=== PATIENT | female | born 1950 | race Caucasian/White ===

== ENCOUNTER → 2016-12-12 | Outpatient (CLI) | payer MEDICARE, OTHER ==
[~2016-12-12] MED LIST: DENOSUMAB 60 MG/ML 1 ML SYRINGE SQ ONE
[2016-12-12 13:12] VITALS: BP 138/65; PULSE 81; RESP 16; TEMP 97.9
== END ==
LOC: PROCWHC3 12:28
PROVIDERS: ATTEND Family Medicine
DX: M81.0 Age-related osteoporosis without current pathological fracture (principal)
CPT/HCPCS: 96372; J0897

== ENCOUNTER → 2017-02-23 | Outpatient (CLI) | payer MEDICARE, OTHER ==
--- NOTE | 2017-02-23 11:16 | US ---
EXAMINATION TYPE: US abdomen complete DATE OF EXAM: 02/23/2017 COMPARISON: NONE CLINICAL HISTORY: R10.9 Unspecified Abdominal Pain. EXAM MEASUREMENTS: Liver Length: 14.1 cm Gallbladder Wall: Surgically absent cm CBD: 0.7 cm Spleen: 9.4 cm Right Kidney: 10.5 x 3.4 x 4.1 cm Left Kidney: 9.8 x 3.4 x 4.3 cm Pancreas: Tail obscured by overlying bowel gas Liver: left lobe partially obscured by overlying bowel gas, otherwise wnl Gallbladder: Surgically absent Evidence for sonographic Mercado's sign: No CBD: wnl Spleen: wnl Right Kidney: No hydronephrosis or masses seen Left Kidney: No hydronephrosis or masses seen Upper IVC: wnl Abd Aorta: bifurcation obscured by bowel gas otherwise wnl Limited views of the pancreas are unremarkable. The liver is normal in size without biliary dilatation. There is been a previous cholecystectomy. The distal common hepatic duct measures 7 mm. The spleen is normal in size. Both kidneys are unremarkable. Visualized portions of aorta and IVC are normal. IMPRESSION: STATUS POST CHOLECYSTECTOMY.
== END | disposition home or self-care (01) ==
LOC: RADUSWWP 09:38
PROVIDERS: ATTEND Family Medicine
DX: R10.9 Unspecified abdominal pain (principal); Z90.49 Acquired absence of other specified parts of digestive tract
CPT/HCPCS: 76700

== ENCOUNTER → 2017-03-17 | Outpatient (CLI) | payer MEDICARE, OTHER ==
--- NOTE | 2017-03-17 23:11 | MR ---
EXAMINATION TYPE: MR thoracic spine wo con DATE OF EXAM: 03/17/2017 COMPARISON: NONE HISTORY: Pain in Thoracic Spine Standard multiplanar, multisequence MRI departmental protocol Multiplanar, multisequence images of the thoracic spine were acquired. FINDINGS: The thoracic vertebra have normal alignment. There is no compression fracture. Thoracic spi nal cord has fairly normal signal pattern. There is no evidence of edema or mass. There is no thoraci c spinal stenosis. There is mild anterior spurring of the endplates in the mid and lower thoracic spi ne. There is no paraspinal mass. Posterior elements appear intact. I see no focal bone destruction. IMPRESSION: Mild spondylotic changes in the mid and lower thoracic spine. No fracture. No thoracic disc herniatio n. Mild anterior spurring.
== END | disposition home or self-care (01) ==
LOC: RADMRIMAIN 15:02
PROVIDERS: ATTEND Family Medicine
DX: M47.814 Spondylosis without myelopathy or radiculopathy, thoracic region (principal)
CPT/HCPCS: 36415; 72146; 82565; 84520

== ENCOUNTER 2017-10-22 14:01 | Observation (INO) | payer MEDICARE, OTHER ==
--- NOTE | 2017-10-22 14:20 | ED ---
General Adult HPI - General Stated complaint: CHEST PAIN Time Seen by Provider: 10/22/17 14:03 Source: patient, EMS, RN notes reviewed - History of Present Illness Initial comments: 67-year-old female presents for evaluation of chest pain. Patient was at her the primary care's office earlier today, chief complaint was chest pain, she was sent to the ER for evaluation. Patient developed chest pain yesterday evening while at rest. She had some associated right arm pain and numbness, this resolved and progressed to left arm and shoulder pain. She denies any vomiting or diaphoresis. Pain was substernal, described as pressure. She has no known history of coronary artery disease. She is a nonsmoker, nondiabetic. No history of hypertension. Patient took aspirin prior to arrival, she was given sublingual nitroglycerin by EMS, at the time my evaluation she has 1 out of 10 chest pressure. No symptoms in her arms at the time of my evaluation. - Related Data Home Medications Medication Instructions Recorded Confirmed Aspirin [Children's Aspirin] 81 mg PO DAILY 10/22/17 10/22/17 Calcium Carbonate [Calcium] 1,200 mg PO DAILY 10/22/17 10/22/17 Denosumab [Prolia] 60 mg SQ Q180D 10/22/17 10/22/17 Ferrous Sulfate [Feosol] 325 mg PO DAILY 10/22/17 10/22/17 Wiley Lock B.lactis 1 cap PO DAILY 10/22/17 10/22/17 [Probiotic] Levothyroxine Sodium 100 mcg PO DAILY 10/22/17 10/22/17 Lidocaine [Lidoderm 5% Patch] 1 patch TRANSDERM DAILY 10/22/17 10/22/17 Loratadine [Claritin] 10 mg PO DAILY 10/22/17 10/22/17 Naproxen 500 mg PO BID 10/22/17 10/22/17 Nortriptyline [Pamelor] 20 mg PO HS 10/22/17 10/22/17 Omeprazole 40 mg PO DAILY 10/22/17 10/22/17 Ranitidine HCl 150 mg PO BID 10/22/17 10/22/17 Rizatriptan Benzoate [Rizatriptan] 10 mg PO DAILY PRN 10/22/17 10/22/17 Triamterene-Hctz 37.5-25Mg 1 cap PO DAILY 10/22/17 10/22/17 [Dyazide 37.5-25 Capsule] Vitamin B Complex 1 cap PO DAILY 10/22/17 10/22/17 Allergies Allergy/AdvReac Type Severity Reaction Status Date / Time cefaclor [From Ceclor] Allergy Rash/Hives Verified 10/22/17 14:22 clarithromycin [From Biaxin] AdvReac Nausea Verified 10/22/17 14:22 hydromorphone [From Dilaudid] AdvReac Hallucinati Verified 10/22/17 14:22 ons ofloxacin [From Floxin] AdvReac Nausea Verified 10/22/17 14:22 Review of Systems ROS Statement: Those systems with pertinent positive or pertinent negative responses have been documented in the HPI. ROS Other: All systems not noted in ROS Statement are negative. Past Medical History Smoking Status: Never smoker General Exam General appearance: alert, in no apparent distress Head exam: Present: atraumatic, normocephalic Eye exam: Present: normal appearance, PERRL ENT exam: Present: normal exam Neck exam: Present: normal inspection. Absent: tenderness, meningismus Respiratory exam: Present: normal lung sounds bilaterally. Absent: respiratory distress, wheezes Cardiovascular Exam: Present: regular rate, normal rhythm GI/Abdominal exam: Present: soft. Absent: distended, tenderness Extremities exam: Present: normal inspection. Absent: pedal edema Neurological exam: Present: alert, oriented X3, CN II-XII intact Psychiatric exam: Present: normal affect, normal mood Skin exam: Present: warm, dry, intact. Absent: cyanosis, diaphoretic, erythema Course Vital Signs 10/22/17 10/22/17 14:15 15:15 Temperature 98.5 F Pulse Rate 71 69 Respiratory 15 16 Rate Blood Pressure 172/82 177/84 O2 Sat by Pulse 98 98 Oximetry EKG Findings - EKG Comments: EKG Findings:: EKG shows normal sinus rhythm, ventricular rate 79, UT interval 176 QRS duration 78, QTC 435, no ST segment elevation, no T-wave abnormality Medical Decision Making - Medical Decision Making 67-year-old female presenting with chief complaint of chest pain. Pain resolved initial evaluation. Patient does have typical features. No known history of CAD. EKG is nonischemic. Chest x-ray negative for acute intrathoracic process. Laboratory studies including CBC, CMP and troponin are unremarkable. Patient will be placed on heparin, admitted for cardiology consult and serial cardiac enzymes. - Lab Data Result diagrams: 10/22/17 14:30 10/22/17 14:30 Lab Results 10/22/17 10/22/17 10/22/17 Range/Units 14:30 14:30 14:30 WBC 4.8 (3.8-10.6) k/uL RBC 4.06 (3.80-5.40) m/uL Hgb 12.2 (11.4-16.0) gm/dL Hct 37.9 (34.0-46.0) % MCV 93.5 (80.0-100.0) fL MCH 30.1 (25.0-35.0) pg MCHC 32.2 (31.0-37.0) g/dL RDW 13.1 (11.5-15.5) % Plt Count 272 (150-450) k/uL Neutrophils % 52 % Lymphocytes % 34 % Monocytes % 8 % Eosinophils % 4 % Basophils % 1 % Neutrophils # 2.5 (1.3-7.7) k/uL Lymphocytes # 1.6 (1.0-4.8) k/uL Monocytes # 0.4 (0-1.0) k/uL Eosinophils # 0.2 (0-0.7) k/uL Basophils # 0.1 (0-0.2) k/uL PT (9.0-12.0) sec INR (<1.2) APTT (22.0-30.0) sec Sodium 139 (137-145) mmol/L Potassium 3.9 (3.5-5.1) mmol/L Chloride 105 (98-107) mmol/L Carbon Dioxide 24 (22-30) mmol/L Anion Gap 10 mmol/L BUN 12 (7-17) mg/dL Creatinine 0.93 (0.52-1.04) mg/dL Est GFR (MDRD) Af Amer >60 (>60 ml/min/1.73 sqM) Est GFR (MDRD) Non-Af >60 (>60 ml/min/1.73 sqM) Glucose 103 H (74-99) mg/dL Calcium 9.5 (8.4-10.2) mg/dL Magnesium 1.9 (1.6-2.3) mg/dL Total Bilirubin 0.4 (0.2-1.3) mg/dL AST 40 H (14-36) U/L ALT 42 (9-52) U/L Alkaline Phosphatase 81 (38-126) U/L Total Creatine Kinase 63 (30-135) U/L CK-MB (CK-2) 0.6 (0.0-2.4) ng/mL CK-MB (CK-2) Rel Index 1.0 Troponin I <0.012 (0.000-0.034) ng/mL NT-Pro-B Natriuret Pep pg/mL Total Protein 6.7 (6.3-8.2) g/dL Albumin 3.9 (3.5-5.0) g/dL Lipase 68 (23-300) U/L 10/22/17 10/22/17 Range/Units 14:30 14:30 WBC (3.8-10.6) k/uL RBC (3.80-5.40) m/uL Hgb (11.4-16.0) gm/dL Hct (34.0-46.0) % MCV (80.0-100.0) fL MCH (25.0-35.0) pg MCHC (31.0-37.0) g/dL RDW (11.5-15.5) % Plt Count (150-450) k/uL Neutrophils % % Lymphocytes % % Monocytes % % Eosinophils % % Basophils % % Neutrophils # (1.3-7.7) k/uL Lymphocytes # (1.0-4.8) k/uL Monocytes # (0-1.0) k/uL Eosinophils # (0-0.7) k/uL Basophils # (0-0.2) k/uL PT 10.7 (9.0-12.0) sec INR 1.1 (<1.2) APTT 22.4 (22.0-30.0) sec Sodium (137-145) mmol/L Potassium (3.5-5.1) mmol/L Chloride (98-107) mmol/L Carbon Dioxide (22-30) mmol/L Anion Gap mmol/L BUN (7-17) mg/dL Creatinine (0.52-1.04) mg/dL Est GFR (MDRD) Af Amer (>60 ml/min/1.73 sqM) Est GFR (MDRD) Non-Af (>60 ml/min/1.73 sqM) Glucose (74-99) mg/dL Calcium (8.4-10.2) mg/dL Magnesium (1.6-2.3) mg/dL Total Bilirubin (0.2-1.3) mg/dL AST (14-36) U/L ALT (9-52) U/L Alkaline Phosphatase (38-126) U/L Total Creatine Kinase (30-135) U/L CK-MB (CK-2) (0.0-2.4) ng/mL CK-MB (CK-2) Rel Index Troponin I (0.000-0.034) ng/mL NT-Pro-B Natriuret Pep 157 pg/mL Total Protein (6.3-8.2) g/dL Albumin (3.5-5.0) g/dL Lipase (23-300) U/L Critical Care Time Critical Care Time: Yes Total Critical Care Time: 35 Disposition Clinical Impression: Unstable angina pectoris Disposition: ADMITTED IP TO THIS HOSP Condition: Stable Referrals: Charles Shahid MD [Primary Care Provider] - 1-2 days
[2017-10-22 14:42] LABS: Basophils # (A) 0.1 k/uL (0-0.2); Basophils % (A) 1 %; Eosinophils # (A) 0.2 k/uL (0-0.7); Eosinophils % (A) 4 %; HCT 37.9 % (34.0-46.0); HGB 12.2 gm/dL (11.4-16.0); Lymphocytes # (A) 1.6 k/uL (1.0-4.8); Lymphocytes % (A) 34 %; MCH 30.1 pg (25.0-35.0); MCHC 32.2 g/dL (31.0-37.0); MCV 93.5 fL (80.0-100.0); Mean Platelet Volume 6.4; Monocytes # (A) 0.4 k/uL (0-1.0); Monocytes % (A) 8 %; Neutrophils # (A) 2.5 k/uL (1.3-7.7); Neutrophils % (A) 52 %; Platelet Count 272 k/uL (150-450); RBC 4.06 m/uL (3.80-5.40); RDW 13.1 % (11.5-15.5); WBC 4.8 k/uL (3.8-10.6)
[2017-10-22 14:52] LABS: INR 1.1 (<1.2); Partial Thromboplastin Time 22.4 sec (22.0-30.0); Prothrombin Time 10.7 sec (9.0-12.0)
[2017-10-22 14:55] LABS: ALT 42 U/L (9-52); AST 40 U/L (14-36); Albumin 3.9 g/dL (3.5-5.0); Alkaline Phosphatase 81 U/L (38-126); Anion Gap 10 mmol/L; Blood Urea Nitrogen 12 mg/dL (7-17); Calcium 9.5 mg/dL (8.4-10.2); Carbon Dioxide 24 mmol/L (22-30); Chloride 105 mmol/L (98-107); Glucose 103 mg/dL (74-99); Lipase 68 U/L (23-300); Magnesium 1.9 mg/dL (1.6-2.3); Potassium 3.9 mmol/L (3.5-5.1); Sodium 139 mmol/L (137-145); Total Bilirubin 0.4 mg/dL (0.2-1.3); Total Protein 6.7 g/dL (6.3-8.2)
[2017-10-22 15:02] LABS: Creatine Kinase 63 U/L (30-135)
--- NOTE | 2017-10-22 15:06 | XR ---
EXAMINATION TYPE: XR chest 2V DATE OF EXAM: 10/22/2017 COMPARISON: 05/27/2013 HISTORY: Chest pain TECHNIQUE: Frontal and lateral views of the chest are obtained. FINDINGS: Heart and mediastinum are normal. Lungs are clear. Diaphragm is normal. There are chest le ads. Bony thorax is intact. IMPRESSION: Normal chest. No change.
[2017-10-22 15:15] LABS: Creatine Kinase MB 0.6 ng/mL (0.0-2.4); Troponin I <0.012 ng/mL (0.000-0.034)
[2017-10-22] MEDS ORDERED: HEPARIN SODIUM,PORCINE 5,000 UNIT/ML 1 ML VIAL IV ONE (15:22)
[2017-10-22] MEDS ORDERED: HEPARIN SODIUM,PORCINE 5,000 UNIT/ML 1 ML VIAL IV PRN (15:22)
[2017-10-22] MEDS ORDERED: NALOXONE 0.4 MG/ML 1 ML VIAL IV PRN (15:23)
[2017-10-22] MEDS ORDERED: ONDANSETRON 4 MG/2 ML VIAL IVP PRN (15:23)
[2017-10-22] MEDS ORDERED: NITROGLYCERIN SL TABS 0.4 MG TAB SUBLINGUAL PRN (15:25)
[2017-10-22] MEDS ORDERED: ACETAMINOPHEN TAB 325 MG TAB PO STA (15:26)
[2017-10-22] MEDS ORDERED: HEPARIN SOD,PORK IN 0.45% NACL 25,000 UNIT in 0.45% NACL 1 500ML.BAG IV SCH (15:30)
[2017-10-22] MEDS ORDERED: SUMAtriptan SUCCINATE 50 MG TAB PO PRN (16:14)
[2017-10-22] MEDS ORDERED: TRIAMTERENE-HCTZ 37.5-25MG 1 EACH CAP PO STA (16:22)
[2017-10-22 18:33] LABS: Creatine Kinase 61 U/L (30-135)
[2017-10-22 18:46] LABS: Creatine Kinase MB 0.6 ng/mL (0.0-2.4); Troponin I <0.012 ng/mL (0.000-0.034)
[2017-10-22] MEDS ORDERED: Acetaminophen-Codeine 300-30mg TAB PO STA (19:24)
[2017-10-22] MEDS ORDERED: NORTRIPTYLINE 10 MG CAP PO SCH (21:00)
--- NOTE | 2017-10-22 22:19 | HP ---
HISTORY AND PHYSICAL CHIEF COMPLAINT: Chest pain DATE OF SERVICE: 10/22/2017 HISTORY OF PRESENT ILLNESS: This is a 67-year-old woman with past medical history of multiple medical problems being followed by Dr. Shahid in the outpatient setting complaining of chest pain which is in the anterior part of the chest, sharp and pressure type of sensation. The pain started yesterday while dressing and the patient felt it was associated with right thumb pain and numbness. The patient also has left arm and shoulder pain. Patient went to primary care physician's office and subsequently sent to [facility] for further evaluation and treatment. There is no history of fever, rigors or chills. No history of headache, loss of consciousness or seizures. The initial labs are within normal limits and EKG did not show any acute abnormality. PAST MEDICAL HISTORY: Past medical history of no significant cardiorespiratory illness in the past. Hypothyroidism and GERD. MEDICATIONS: Prior to admission include home medications are: 1. Nortriptyline Pamelor 20 mg q.h.s. 2. Naprosyn. 3. Claritin 10 mg daily. 5. Levothyroxine 100 mcg. 6. Iron sulfate. 7. Calcium carbonate. 8. Aspirin 81 mg. 9. Rizatriptan 10 mg p.o. daily. 10.Ranitidine 150 mg daily. 11.Omeprazole 40 mg. 12.Prolia 60 mg subcu 180 days. 13.Vitamin B complex. 14.Triamterene hydrochlorothiazide 37.5/25 mg p.o. daily. ALLERGIES: ARE CEFACLOR, ERYTHROMYCIN, HYDROMORPHONE AND OFLOXACIN. FAMILY HISTORY: No history of heart disease or strokes in the family. SOCIAL HISTORY: No history of smoking, no history of alcohol. REVIEW OF SYSTEMS: ENT: No diminished vision or hearing. Cardio system: Mentioned earlier. RESPIRATORY: As mentioned earlier. GI no nausea. no dysuria. Nervous system: No numbness, weakness. Allergy/Immunology: No asthma or hayfever. Musculoskeletal: As mentioned earlier. Hematology/Oncology: No history of anemia. Endocrine: No history of diabetes or hypothyroidism. Constitutional: As mentioned earlier. Dermatology: Negative. Rheumatology: Negative. Psychiatric: As mentioned earlier. PHYSICAL EXAMINATION: Alert and oriented times three. Pulse is 80, blood pressure 116/80, respiratory rate 16, temperature normal. Pulse ox 100% on room air. HEENT: Conjunctivae normal. Oral mucosa moist. Neck is no jugular venous distention. No carotid bruit. No lymph node enlargement. Cardiovascular system: S1, S2 muffled. No S3, no S4. Respiratory : Breath sounds diminished in the bases. No rhonchi. No crackles. ABDOMEN: Soft, nontender. No mass palpable. Legs no edema and no swelling. Nervous system: Higher functions as mentioned. Moves all 4 limbs. No focal motor or sensory deficits. Lymphatics: No lymph nodes palpable in the neck, axillae or groin. Skin no ulcer, rash, bleeding. LABS: At this time shows CBC within normal limits. CMP glucose 103, AST 40. ASSESSMENT: 1. Chest pain possible unstable angina. 2. Hypothyroidism. 3. History of degenerative joint disease. 4. History of gastroesophageal reflux disease. RECOMMENDATIONS AND DISCUSSION: In this 67-year-old woman who presented with multiple complex medical issues, we will monitor the patient closely, continue the current medications, management and symptomatic treatment. Unstable angina protocol. Rule out myocardial infarction. Cardiac consultation. Possible stress test. Guarded prognosis. Further recommendations to follow. A copy of dictation being forwarded to Dr. Shahid who is the primary care physician. MMODL / IJN: [id number] / MTDD
[2017-10-22] MEDS: NAPROXEN 250 MG TAB PO SCH (23:08)
[2017-10-22] MEDS ORDERED: AMITRIPTYLINE HCL 10 MG TAB PO PRN (23:10)
[2017-10-23] MEDS: FAMOTIDINE 20 MG TAB PO SCH ×2 (03:01→12:25)
[2017-10-23 03:19] LABS: Creatine Kinase 56 U/L (30-135)
[2017-10-23 03:32] LABS: Creatine Kinase MB 0.6 ng/mL (0.0-2.4); Troponin I <0.012 ng/mL (0.000-0.034)
[2017-10-23] MEDS ORDERED: LEVOTHYROXINE 100 MCG TAB PO SCH (06:30)
[2017-10-23 07:03] LABS: Basophils # (A) 0.1 k/uL (0-0.2); Basophils % (A) 1 %; Eosinophils # (A) 0.2 k/uL (0-0.7); Eosinophils % (A) 5 %; HCT 38.9 % (34.0-46.0); HGB 12.2 gm/dL (11.4-16.0); Lymphocytes % (A) 44 %; MCH 29.8 pg (25.0-35.0); MCHC 31.3 g/dL (31.0-37.0); MCV 95.3 fL (80.0-100.0); Mean Platelet Volume 7.3; Monocytes # (A) 0.3 k/uL (0-1.0); Monocytes % (A) 6 %; Neutrophils # (A) 1.9 k/uL (1.3-7.7); Neutrophils % (A) 41 %; Platelet Count 256 k/uL (150-450); RBC 4.08 m/uL (3.80-5.40); WBC 4.6 k/uL (3.8-10.6)
[2017-10-23] MEDS ORDERED: PANTOPRAZOLE 40 MG TABLET PO SCH (07:30)
[2017-10-23 08:08] LABS: ALT 48 U/L (9-52); AST 41 U/L (14-36); Albumin 3.9 g/dL (3.5-5.0); Alkaline Phosphatase 97 U/L (38-126); Anion Gap 11 mmol/L; Blood Urea Nitrogen 12 mg/dL (7-17); Calcium 9.5 mg/dL (8.4-10.2); Carbon Dioxide 27 mmol/L (22-30); Chloride 104 mmol/L (98-107); Cholesterol 216 mg/dL (<200); Glucose 101 mg/dL (74-99); HDL Cholesterol 73 mg/dL (40-60); LDL Cholesterol,Calculated 120 mg/dL (0-99); Potassium 4.1 mmol/L (3.5-5.1); Sodium 142 mmol/L (137-145); Total Bilirubin 0.5 mg/dL (0.2-1.3); Total Protein 6.6 g/dL (6.3-8.2); Triglycerides 113 mg/dL (<150)
[2017-10-23 08:54] VITALS: RESP 18
[2017-10-23] MEDS ORDERED: FERROUS SULFATE 325 MG TAB PO SCH (09:00)
[2017-10-23] MEDS ORDERED: CALCIUM CARB-VIT D 500MG-200UN 1 EACH TAB PO SCH (09:00)
[2017-10-23] MEDS ORDERED: ASPIRIN 81 MG PO SCH (09:00)
[2017-10-23] MEDS ORDERED: LACTOBACILLUS ACIDOPH & BULGAR 1 EACH PACKET PO SCH (09:00)
[2017-10-23] MEDS ORDERED: LIDOCAINE 5% PATCH TOPICAL SCH (09:00)
[2017-10-23] MEDS ORDERED: TRIAMTERENE-HCTZ 37.5-25MG 1 EACH CAP PO SCH (09:00)
[2017-10-23] MEDS ORDERED: B COMPLEX-VIT C-VIT E-ZINC 1 EACH TAB PO SCH (09:00)
[2017-10-23] MEDS ORDERED: LORATADINE 10 MG TAB PO SCH (09:00)
[2017-10-23 11:52] VITALS: BP 159/77; PULSE 78; TEMP 98
[2017-10-23] MEDS: NAPROXEN 250 MG TAB PO SCH (12:27)
[2017-10-23] MEDS ORDERED: LISINOPRIL 5 MG TAB PO SCH (13:00)
--- NOTE | 2017-10-23 13:02 | P.CRDCN ---
History of Present Illness Consult date: 10/23/17 Consult reason: chest pain History of present illness: Mrs. Sweet is a pleasant 67-year-old female past medical history significant for gastroesophageal reflux disease, hypothyroidism, migraine headaches, hypertension and aortic regurgitation. She follows with a youth development specialist out of [facility]. We've been asked to see her in consultation for complaints of chest pain. She states Monday night at 2300 had right upper arm numbness and mid-sternal chest pressure lasting a few minutes subsided on its own. 30 minutes later happened again with chest pressure , left shoulder pain and numbness all the way down left arm. took 3 baby aspirin and went to bed. woke up pain free. Around 1230 yesterday same thing happened again so she presented to urgent care. She also admits she had another episode last night but didn't tell staff. She doesn't want to the local [facility] and said that Monday she took a new type of water aerobics class and was doing some different exercises with her arms. Not sure if this is related. The pain in her chest is reproducible on deep palpation and worse with deep inspiration. Currently she complains of a headache. She states she gets migraine headaches and she does not drink. EKG on arrival reveals sinus mechanism with no acute ST or T-wave abnormalities. Chest x-ray negative for an acute cardiopulmonary process. Laboratory data reviewed, cardiac enzymes negative 3, d-dimer negative, hemoglobin 12.2, platelets 256, potassium 4.1, magnesium 1.9, creatinine 0.94, LDL 120, HDL 73, triglycerides 113, toco showed 216. Current cardiac medications include triamterene/HCTZ 37.5/25 and aspirin 81 mg daily. Records reviewed from her primary youth development specialist Jean Paul most recent echocardiogram performed January 2015 reveals normal left ventricular systolic function with ejection fraction 65%, mild aortic valve leaflet thickening and calcification with mild to moderate regurgitation and no stenosis. Most recent stress test was performed in January 2016 reveals no ischemic EKG changes with exercise and no echocardiographic evidence of ischemia. Most recent carotid duplex revealed bilateral internal carotid artery mild atherosclerotic changes with no hemodynamically significant stenosis. Most recently extremity arterial Doppler report reveals bilateral lower extremity with no hemodynamically significant stenosis. Review of Systems At the time of my exam: CONSTITUTIONAL: Denies fever. Denies chills. EYES: Denies blurred vision. Denies vision changes. Denies eye pain. EARS, NOSE, MOUTH & THROAT: Denies headache. Denies sore throat. Denies ear pain. CARDIOVASCULAR: Denies chest pain. Denies shortness of breath. Denies orthopnea. Denies PND. Denies palpitations. RESPIRATORY: Denies cough. GASTROINTESTINAL: Denies abdominal pain. Denies diarrhea. Denies constipation. Denies nausea. Denies vomiting. MUSCULOSKELETAL: Denies myalgias. INTEGUMENTARY: Denies pruitis. Denies rash. NEUROLOGIC: Denies numbness. Denies tingling. Denies weakness. Complains of headache. PSYCHIATRIC: Denies anxiety. Denies depression. ENDOCRINE: Denies fatigue. Denies weight change. Denies polydipsia. Denies polyurina. GENITOURINARY: Denies burning, hematuria or urgency with micturation. HEMATOLOGIC: Denies history of anemia. Denies bleeding. Past Medical History Past Medical History: GERD/Reflux, Thyroid Disorder Additional Past Medical History / Comment(s): migraines, IBS, fibro, hypothyroid , swollen feet, ulcers, 5 lung nodules, mitral, aortic, tricuspid valve regurge. achilles tendon ruptured, buldging discs in back, bone spurs, arthritis History of Any Multi-Drug Resistant Organisms: None Reported Past Surgical History: Cholecystectomy, Hysterectomy Additional Past Surgical History / Comment(s): swollen feet as a kid with exp. surgery to see why they swell findings were lack of veins in legs, left breast cyst removal, colomoscopy, achilles tenden repair Past Anesthesia/Blood Transfusion Reactions: No Reported Reaction Past Psychological History: No Psychological Hx Reported Smoking Status: Never smoker Past Alcohol Use History: None Reported Past Drug Use History: None Reported - Past Family History Mother Family Medical History: Coronary Artery Disease (CAD) Father Family Medical History: Coronary Artery Disease (CAD) Additional Family Medical History / Comment(s): cabg Sister(s) Family Medical History: Cancer Additional Family Medical History / Comment(s): breast cancer twice Son(s) Family Medical History: No Reported History Medications and Allergies Home Medications Medication Instructions Recorded Confirmed Type Amitriptyline HCl [Elavil] 20 mg PO HS PRN 10/22/17 10/22/17 History Aspirin [Children's Aspirin] 81 mg PO DAILY 10/22/17 10/22/17 History Calcium Carbonate [Calcium] 1,200 mg PO DAILY 10/22/17 10/22/17 History Denosumab [Prolia] 60 mg SQ Q180D 10/22/17 10/22/17 History Ferrous Sulfate [Iron (65 MG 325 mg PO DAILY 10/22/17 10/22/17 History Elemental)] L.acidoph,Paracasei, B.lactis 1 cap PO DAILY 10/22/17 10/22/17 History [Probiotic] Levothyroxine Sodium 100 mcg PO DAILY 10/22/17 10/22/17 History Lidocaine [Lidoderm 5% Patch] 1 patch TRANSDERM DAILY 10/22/17 10/22/17 History Loratadine [Claritin] 10 mg PO DAILY 10/22/17 10/22/17 History Omeprazole 40 mg PO DAILY 10/22/17 10/22/17 History Rizatriptan Benzoate [Rizatriptan] 10 mg PO DAILY PRN 10/22/17 10/22/17 History Triamterene-Hctz 37.5-25Mg 1 cap PO DAILY 10/22/17 10/22/17 History [Dyazide 37.5-25 Capsule] Vitamin B Complex 1 cap PO DAILY 10/22/17 10/22/17 History Naproxen [Naprosyn] 500 mg PO BID tab 10/23/17 Rx Allergies Allergy/AdvReac Type Severity Reaction Status Date / Time cefaclor [From Ceclor] Allergy Rash/Hives Verified 10/22/17 14:22 clarithromycin [From Biaxin] AdvReac Nausea Verified 10/22/17 14:22 hydromorphone [From Dilaudid] AdvReac Hallucinati Verified 10/22/17 14:22 ons levofloxacin [From Levaquin] AdvReac Nausea Verified 10/22/17 22:21 methylprednisolone AdvReac Rash/Hives Verified 10/22/17 22:21 [From Medrol] ofloxacin [From Floxin] AdvReac Nausea Verified 10/22/17 14:22 topiramate [From Topamax] AdvReac Nausea Verified 10/22/17 22:21 Physical Exam Vitals: Vital Signs Temp Pulse Pulse Resp BP BP Pulse Ox 10/23/17 04:00 97.9 F 74 15 158/80 97 10/23/17 00:00 97.9 F 80 15 143/72 97 10/22/17 22:33 16 10/22/17 20:37 71 16 158/81 98 10/22/17 19:00 80 16 178/84 100 10/22/17 18:00 79 16 157/77 100 10/22/17 17:00 80 16 169/81 100 10/22/17 15:15 69 16 177/84 98 10/22/17 14:15 98.5 F 71 15 172/82 98 Intake and Output 10/22/17 10/23/17 10/23/17 22:59 06:59 14:59 Other: Voiding Method Toilet Toilet # Voids 1 Blood pressure 158/78 heart rate 74 afebrile maintaining saturation on room air. GENERAL: This is a 67-year-old female in no apparent distress at the time of my examination. HEENT: Head is atraumatic, normocephalic. Pupils are equal, round. Sclerae anicteric. Conjunctivae are clear. Mucous membranes of the mouth are moist. Neck is supple. There is no jugular venous distention. No carotid bruit is heard. LUNGS: Clear to auscultation no wheezes, rales or rhonchi. No chest wall tenderness is noted on palpation or with deep breathing. HEART: Regular rate and rhythm with systolic ejection murmur at the base, no rubs or gallops. S1 and S2 heard. ABDOMEN: Soft, nontender. Bowel sounds are heard. No organomegaly noted. EXTREMITIES: Trace evidence of bilateral lower extremity nonpitting edema and no calf tenderness noted. VASCULAR: Radial and dorsalis pedis pulses palpated, no evidence of clubbing. NEUROLOGIC: Patient is awake, alert and oriented x3. Results 10/23/17 06:32 10/23/17 06:32 Cardiac Enzymes 10/22/17 10/22/17 10/22/17 Range/Units 14:30 14:30 17:55 AST 40 H (14-36) U/L CK-MB (CK-2) 0.6 0.6 (0.0-2.4) ng/mL Troponin I <0.012 <0.012 (0.000-0.034) ng/mL 10/23/17 10/23/17 Range/Units 02:25 06:32 AST 41 H (14-36) U/L CK-MB (CK-2) 0.6 (0.0-2.4) ng/mL Troponin I <0.012 (0.000-0.034) ng/mL Coagulation 10/22/17 10/22/17 10/23/17 Range/Units 14:30 21:08 02:25 PT 10.7 (9.0-12.0) sec APTT 22.4 63.7 H 55.6 H (22.0-30.0) sec Lipids 10/23/17 Range/Units 06:32 Triglycerides 113 (<150) mg/dL Cholesterol 216 H (<200) mg/dL HDL Cholesterol 73 H (40-60) mg/dL CBC 10/22/17 10/23/17 Range/Units 14:30 06:32 WBC 4.8 4.6 (3.8-10.6) k/uL RBC 4.06 4.08 (3.80-5.40) m/uL Hgb 12.2 12.2 (11.4-16.0) gm/dL Hct 37.9 38.9 (34.0-46.0) % Plt Count 272 256 (150-450) k/uL Comprehensive Metabolic Panel 10/22/17 10/23/17 Range/Units 14:30 06:32 Sodium 139 142 (137-145) mmol/L Potassium 3.9 4.1 (3.5-5.1) mmol/L Chloride 105 104 (98-107) mmol/L Carbon Dioxide 24 27 (22-30) mmol/L BUN 12 12 (7-17) mg/dL Creatinine 0.93 0.94 (0.52-1.04) mg/dL Glucose 103 H 101 H (74-99) mg/dL Calcium 9.5 9.5 (8.4-10.2) mg/dL AST 40 H 41 H (14-36) U/L ALT 42 48 (9-52) U/L Alkaline Phosphatase 81 97 (38-126) U/L Total Protein 6.7 6.6 (6.3-8.2) g/dL Albumin 3.9 3.9 (3.5-5.0) g/dL Current Medications Generic Name Dose Route Start Last Admin Trade Name Freq PRN Reason Stop Dose Admin Amitriptyline HCl 20 mg 10/22/17 23:10 Elavil PO HS PRN Insomnia Aspirin 81 mg 10/23/17 09:00 Aspirin PO DAILY [facility] Calcium Carbonate 2 each 10/23/17 09:00 Oscal 500+D PO DAILY [facility] Famotidine 20 mg 10/22/17 21:00 10/23/17 03:01 Pepcid PO Not Given BID [facility] Ferrous Sulfate 325 mg 10/23/17 09:00 Feosol PO DAILY [facility] Heparin Sodium (Porcine) 0 unit 10/22/17 15:22 Heparin IV PER PROTOCOL PRN Low PTT Protocol Heparin Sodium/Sodium Chloride 500 mls @ 19.37 mls/hr 10/22/17 15:30 17:28 25,000 unit/ Sodium Chloride IV 12 units/kg/hr .Q24H JOSE A 19.37 mls/hr Protocol Administration 12 UNITS/KG/HR Lactobacillus Acidoph/Bulgaricus 1 each 10/23/17 09:00 Lactinex PO DAILY [facility] Levothyroxine Sodium 100 mcg 10/23/17 06:30 10/23/17 05:36 Synthroid PO 100 mcg 0630 [facility] Administration Lidocaine 1 patch 10/23/17 09:00 Lidoderm TOPICAL DAILY [facility] Loratadine 10 mg 10/23/17 09:00 Claritin PO DAILY [facility] Naloxone HCl 0.2 mg 10/22/17 15:23 Narcan IV Q2M PRN Opioid Reversal Naproxen 500 mg 10/22/17 21:00 10/22/17 23:08 Naprosyn PO Not Given BID [facility] Nitroglycerin 0.4 mg 10/22/17 15:25 10/22/17 15:33 Nitrostat SUBLINGUAL 0.4 mg Q5M PRN Administration Chest Pain Ondansetron HCl 4 mg 10/22/17 15:23 Zofran IVP Q8HR PRN Nausea And Vomiting Pantoprazole Sodium 40 mg 10/23/17 07:30 Protonix PO AC-BRKFST [facility] Sumatriptan Succinate 100 mg 10/22/17 16:14 Imitrex PO DAILY PRN Migraine Headache Triamterene/HCTZ 1 each 10/23/17 09:00 Dyazide PO DAILY [facility] Vitamin B Complex/Vit C/Vit E/Zinc 1 each 10/23/17 09:00 Z-Bec PO DAILY [facility] Intake and Output 10/22/17 10/23/17 10/23/17 22:59 06:59 14:59 Other: Voiding Method Toilet Toilet # Voids 1 10/23/17 06:32 10/23/17 06:32 Assessment and Plan Assessment: ASSESSMENT 1. Chest pain, atypical. No EKG evidence of ischemia and negative cardiac enzymes. Possibly musculoskeletal component to the pain secondary to new exercise regimen on Monday. 2. Dyslipidemia 3. History of aortic regurgitation. 4. 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 Patient states she has decreased vasculature in the legs discomfort and she was 12 years old. 5. Hypertension PLAN Obtain 2-D echocardiogram and Doppler study to assess cardiac structure and function. Discontinue heparin infusion Perform stress echocardiogram to lay for stress induced cardiac ischemia. The patient on lisinopril 5 mg daily for elevated blood pressures since admission. Lifestyle modifications discussed for lipid lowering. Thank you kindly for this consultation. Nurse Practitioner note has been reviewed, I agree with a documented findings and plan of care. Patient was seen and examined.
--- NOTE | 2017-10-23 13:34 | P.STRESS ---
- Stress Test Note Stress Test Results/Findings: Exam Performed: stress echo exercise Exam Date: 10/23/17 Reason for Exam: CHEST PAIN Height: 5 ft 2 in Weight: 80.739 kg Protocol: DAMION Stage: 2 Duration of Exercise: 4:00 Resting Heart Rate: 99 Resting Blood Pressure: 142/85 Maximum Achieved Heart Rate: 145 Maximum Achieved Blood Pressure: 156/90 85% PMHR: 130 100% PMHR: 153 METS: 5.8 Technologist Comment: Stress Test Results/Findings: This is a 67-year-old female who was admitted to the hospital with atypical chest pain and on pains. EKGs and cardiac enzymes were negative. Baseline EKG showed sinus rhythm with normal MT interval and QRS duration. Patient walked on the Damion protocol for about 4 minutes achieving a maximum heart rate of 145 with blood pressure 156/90. Heart rate at rest was 99, blood pressure 140/85. EKGs taken during and after the exercise did not reveal any changes to suggest ischemia. Patient did not express any chest pain. ECHO DATA: Baseline echo images showed normal wall motion and thickening. Exercise echo images showed augmentation of wall motion and thickening in all the segments. FINAL IMPRESSION: #1. Negative stress test. #2. Negative stress echo.
--- NOTE | 2017-10-23 18:28 | ECHOF ---
Referral Reason:chest pain MEASUREMENTS -------- HEIGHT: 157.5 cm WEIGHT: 80.7 kg BP: 144/70 RVIDd: 2.5 cm (< 3.3) IVSd: 1.1 cm (0.6 - 1.1) LVIDd: 3.6 cm (3.9 - 5.3) LVPWd: 0.9 cm (0.6 - 1.1) IVSs: 1.5 cm LVIDs: 2.4 cm LVPWs: 1.1 cm LA Diam: 3.4 cm (2.7 - 3.8) LAESV Index (A-L): 32.74 ml/m Ao Diam: 2.8 cm (2.0 - 3.7) AV Cusp: 1.8 cm (1.5 - 2.6) LA Diam: 3.5 cm (2.7 - 3.8) MV EXCURSION: 15.271 mm (> 18.000) MV EF SLOPE: 42 mm/s (70 - 150) EPSS: 0.3 cm MV E Ebenezer: 0.53 m/s MV DecT: 311 ms MV A Ebenezer: 0.82 m/s MV E/A Ratio: 0.64 AV maxP.53 mmHg AV meanP.85 mmHg AR PHT: 420 ms RAP: 5.00 mmHg RVSP: 17.86 mmHg FINDINGS -------- Sinus rhythm. This was a technically good study. The left ventricular size is normal. There is mild concentric left ventricular hypertrophy. Overa ll left ventricular systolic function is normal with, an EF between 55 - 60 %. The right ventricle is normal in size. LA is midly dilated 29-33ml/m2. The right atrial size is normal. There is mild aortic regurgitation. There is mild aortic stenosis present. Peak/mean gradient acr oss the Aortic Valve is 28.53mmHg / 13.85mmHg. Mild mitral annular calcification present. Mild mitral regurgitation is present. Mild tricuspid regurgitation present. There is no evidence of pulmonary hypertension. The right v entricular systolic pressure, as measured by Doppler, is 17.86mmHg. There is no pulmonic regurgitation present. The aortic root size is normal. There is no pericardial effusion. CONCLUSIONS -------- 1. The left ventricular size is normal. 2. There is mild concentric left ventricular hypertrophy. 3. Overall left ventricular systolic function is normal with, an EF between 55 - 60 %. 4. LA is midly dilated 29-33ml/m2. 5. There is mild aortic regurgitation. 6. There is mild aortic stenosis present. 7. Peak/mean gradient across the Aortic Valve is 28.53mmHg / 13.85mmHg. 8. Mild mitral annular calcification present. 9. Mild mitral regurgitation is present. 10. Mild tricuspid regurgitation present. 11. There is no evidence of pulmonary hypertension. 12. The right ventricular systolic pressure, as measured by Doppler, is 17.86mmHg. 13. There is no pulmonic regurgitation present. 14. The aortic root size is normal. 15. There is no pericardial effusion. VETERINARY LABORATORY DIAGNOSTICIAN: Afshan Martin RDCS
--- NOTE | 2017-10-23 21:26 | DS ---
DISCHARGE SUMMARY DATE OF SERVICE: 10/24/2007. FINAL DIAGNOSES: 1. Chest pain possible musculoskeletal, negative stress test. 2. Hypothyroidism. 3. History of degenerative joint disease. 4. History of gastroesophageal reflux disease. DISCHARGE DISPOSITION: The patient is being discharged in stable condition with guarded prognosis. HISTORY OF PRESENT ILLNESS: This 67-year-old woman with a past medical history of multiple medical was admitted with chest pain. Myocardial infarction ruled out. Cardiology performed stress test. Stress test showed no evidence of reversible ischemia. Vital signs are stable. Cardiovascular is S1, S2. Abdomen soft and nontender. Central nervous system: No focal deficits. The patient total 216, LDL is 120, Lipitor was initiated. DISCHARGE ADVICE AND MEDICATIONS: The patient is being discharged in a stable condition with guarded prognosis. 1. Diet is cardiac diet. 2. Activity limited until followup. 3. Follow up with Dr. Shahid in 2-3 days. 4. Follow up with welder pipe making as recommend. MEDICATIONS: 1. Elavil 20 mg q.h.s. p.r.n. 2. Aspirin 81 mg daily. 3. Lipitor 10 mg p.o. q.h.s. 4. Calcium 1200 mg p.o. daily. 5. Prolia 60 mg p.o. every 180 days. 6. Iron sulfate 320 mg p.o. daily. 7. Probiotic 1 p.o. daily. 8. Levothyroxine 100 mcg p.o. daily. 9. Lidoderm patch 1 patch daily. 10.Claritin 10 mg. 11.Naprosyn 500 mg p.o. b.i.d. 12.Omeprazole 40 mg p.o. b.i.d. 13.Rizatriptan 10 mg daily p.r.n. 14.Triamterene hydrochloride 1 tab p.o. daily. 15.Dyazide 1 p.o. daily. 16.Vitamin B complex one p.o. daily. Once again, the patient is being discharged in stable condition with guarded prognosis. Advised recommended close followup in the outpatient setting. MMODL / IJN: [id number] / MTDD
--- NOTE | 2017-10-24 10:02 | ECHOS ---
- Stress Test Note Stress Test Results/Findings: Exam Performed: stress echo exercise Exam Date: 10/23/17 Reason for Exam: CHEST PAIN Height: 5 ft 2 in Weight: 80.739 kg Protocol: DAMION Stage: 2 Duration of Exercise: 4:00 Resting Heart Rate: 99 Resting Blood Pressure: 142/85 Maximum Achieved Heart Rate: 145 Maximum Achieved Blood Pressure: 156/90 85% PMHR: 130 100% PMHR: 153 METS: 5.8 Technologist Comment: Stress Test Results/Findings: This is a 67-year-old female who was admitted to the hospital with atypical chest pain and on pains. EKGs and cardiac enzymes were negative. Baseline EKG showed sinus rhythm with normal AK interval and QRS duration. Patient walked on the Damion protocol for about 4 minutes achieving a maximum heart rate of 145 with blood pressure 156/90. Heart rate at rest was 99, blood pressure 140/85. EKGs taken during and after the exercise did not reveal any changes to suggest ischemia. Patient did not express any chest pain. ECHO DATA: Baseline echo images showed normal wall motion and thickening. Exercise echo images showed augmentation of wall motion and thickening in all the segments. FINAL IMPRESSION: #1. Negative stress test. #2. Negative stress echo. HANSD
== END 2017-10-23 13:40 | disposition home or self-care (01) ==
LOC: EC 14:01 → 3SUR 15:23 → 3OBS 10-23 07:57
PROVIDERS: ADMIT Hospitalist; ATTEND Hospitalist
DX: R07.89 Other chest pain (principal); R07.2 Precordial pain; M79.601 Pain in right arm; R20.0 Anesthesia of skin; M25.512 Pain in left shoulder; M79.602 Pain in left arm; R51 Headache; E03.9 Hypothyroidism, unspecified; I10 Essential (primary) hypertension; M19.90 Unspecified osteoarthritis, unspecified site; G43.909 Migraine, unspecified, not intractable, without status migrainosus; K21.9 Gastro-esophageal reflux disease without esophagitis; I35.1 Nonrheumatic aortic (valve) insufficiency; I07.1 Rheumatic tricuspid insufficiency; I34.0 Nonrheumatic mitral (valve) insufficiency; K58.9 Irritable bowel syndrome, unspecified; R91.8 Other nonspecific abnormal finding of lung field; E78.5 Hyperlipidemia, unspecified; R60.0 Localized edema; Q27.8 Other specified congenital malformations of peripheral vascular system; Z79.82 Long term (current) use of aspirin; Z79.899 Other long term (current) drug therapy; Z79.1 Long term (current) use of non-steroidal anti-inflammatories (NSAID); Z82.49 Family history of ischemic heart disease and other diseases of the circulatory system; Z80.3 Family history of malignant neoplasm of breast; Z88.8 Allergy status to other drugs, medicaments and biological substances; Z88.5 Allergy status to narcotic agent; Z88.1 Allergy status to other antibiotic agents
CPT/HCPCS: 99291; 96376 ×2; 96365 ×2; 96366 ×6; 36415; 93005; 93017; 93306; 93350; 85379; 83880; 80061; 80053 ×2; 82550 ×2; 82553 ×2; 83690; 83735; 84484 ×2; 85025 ×2; 85610; 85730 ×2; 71046; G0378 ×2; J1644 ×2

== ENCOUNTER → 2017-12-13 | Outpatient (CLI) | payer MEDICARE, OTHER ==
[~2017-12-13] MED LIST changes: +DENOSUMAB 60 MG/ML 1 ML SYRINGE SQ NR; -DENOSUMAB 60 MG/ML 1 ML SYRINGE SQ ONE
[2017-12-13 14:22] VITALS: BP 141/88; PULSE 94; RESP 16; TEMP 97.6
== END | disposition home or self-care (01) ==
LOC: PROCWHC3 13:54
PROVIDERS: ATTEND Family Medicine
DX: M81.0 Age-related osteoporosis without current pathological fracture (principal)
CPT/HCPCS: 96372; J0897

== ENCOUNTER → 2018-10-08 | Outpatient (CLI) | payer MEDICARE, OTHER ==
--- NOTE | 2018-10-08 09:36 | US ---
EXAMINATION TYPE: US carotid duplex BILAT DATE OF EXAM: 10/08/2018 COMPARISON: NONE CLINICAL HISTORY: 68-year-old female Chest pain R07.9, Edema R60.0, I71.4. TECHNIQUE: Carotid duplex ultrasound examination. Indirect Doppler criteria was utilized. FINDINGS: EXAM MEASUREMENTS: RIGHT: Peak Systolic Velocity (PSV) cm/sec ----- Right CCA: 70.6 ----- Right ICA: 104.3 ----- Right ECA: 90.4 ICA/CCA ratio: 1.5 RIGHT: End Diastole cm/sec ----- Right CCA: 21.3 ----- Right ICA: 36.1 ----- Right ECA: 18.4 LEFT: Peak Systolic Velocity (PSV) cm/sec ----- Left CCA: 70.7 ----- Left ICA: 118.7 ----- Left ECA: 58.3 ICA/CCA ratio: 1.7 LEFT: End Diastole cm/sec ----- Left CCA: 21.5 ----- Left ICA: 44.8 ----- Left ECA: 5.3 VERTEBRALS (direction of flow): Right Vertebral: Antegrade Left Vertebral: Antegrade Rhythm: Normal Refrigeration Service Inspector notes: No atherosclerotic changes No significant hemodynamic stenosis IMPRESSION: No hemodynamically significant stenosis appreciated in either internal carotid artery. Criteria for Assigning % of Stenosis / Diameter reduction (Estimation based on the indirect measurements of the internal carotid artery velocities (ICA PSV). 1. Normal (no stenosis)=ICA PSV < 125 cm/s: ratio < 2.0: ICA EDV<40 cm/s. 2. Less than 50% stenosis=ICA PSV < 125 cm/s: ratio < 2.0: ICA EDV<40 cm/s. 3. 50 to 69% stenosis=ICA PSV of 125 to 230 cm/s: ration 2.0 ? 4.0: ICA EDV 40-100 cm/s. 4. Greater than 70% stenosis to near occlusion= ICA PSV > 230 cm/s: ratio > 4.0: ICA EDV > 100 cm/s. 5. Near occlusion= ICA PSV velocities may be low or undetectable: variable ratio and ICA EDV. 6. Total occlusion=unable to detect flow.
--- NOTE | 2018-10-08 11:13 | US ---
EXAMINATION TYPE: US venous doppler duplex LE BI DATE OF EXAM: 10/08/2018 8:27 AM COMPARISON: NONE CLINICAL HISTORY: 68-year-old female Chest pain R07.9, Edema R60.0, I71.4. SIDE PERFORMED: Bilateral TECHNIQUE: The lower extremity deep venous system is examined utilizing real time linear array sonog suzette with graded compression, doppler sonography and color-flow sonography. FINDINGS: VESSELS IMAGED: External Iliac Vein (EIV) Common Femoral Vein Deep Femoral Vein Greater Saphenous Vein * Femoral Vein Popliteal Vein Small Saphenous Vein * (* superficial vessels) Right Leg: Negative for DVT Left Leg: Negative for DVT IMPRESSION: No evidence for DVT within the bilateral lower extremities imaged from the groin to the knees.
--- NOTE | 2018-10-08 11:49 | US ---
EXAMINATION TYPE: US abdomen complete DATE OF EXAM: 10/08/2018 COMPARISON: NONE CLINICAL HISTORY: 68-year-old female Chest pain R07.9, Edema R60.0, I71.4. TECHNIQUE: Multiple sonographic images of the abdomen are obtained. FINDINGS: EXAM MEASUREMENTS: Liver Length: 14.1 cm CBD: 0.9 cm Spleen: 9.6 cm Right Kidney: 10.0 x 3.6 x 5.2 cm Left Kidney: 9.8 x 3.88 x 4.9 cm Pancreas: not well delineated, portions obscured by gas Liver: wnl Gallbladder: Surgically absent Evidence for sonographic Mercado's sign: no CBD: dilated Spleen: wnl Right Kidney: No hydronephrosis. Left Kidney: No hydronephrosis. Upper IVC: wnl Abd Aorta: wnl IMPRESSION: 1. Mildly dilated bile duct at 9 mm, acceptable given postcholecystectomy status. This can be correla orly with normal alkaline phosphatase and bilirubin levels. 2. Suboptimal visualization of pancreas. Otherwise, no specific sonographic abnormality seen.
== END | disposition home or self-care (01) ==
LOC: RADUSWWP 06:59
PROVIDERS: ATTEND Internal Medicine Cardiovascular Disease
DX: K83.8 Other specified diseases of biliary tract (principal); R07.9 Chest pain, unspecified; H53.453 Other localized visual field defect, bilateral; R60.0 Localized edema; Z90.49 Acquired absence of other specified parts of digestive tract
CPT/HCPCS: 76700; 93880; 93970

== ENCOUNTER → 2019-01-04 | Outpatient (CLI) | payer MEDICARE, OTHER ==
[~2019-01-04] MED LIST changes: -DENOSUMAB 60 MG/ML 1 ML SYRINGE SQ NR; +DENOSUMAB 60 MG/ML 1 ML SYRINGE SQ ONE
[2019-01-04 14:48] VITALS: BP 121/81; PULSE 108; RESP 16; TEMP 97.6
== END ==
LOC: PROCWHC3 14:25
PROVIDERS: ATTEND Family Medicine
DX: M81.0 Age-related osteoporosis without current pathological fracture (principal)
CPT/HCPCS: 96372; J0897

== ENCOUNTER → 2019-07-11 | Outpatient (CLI) | payer MEDICARE, OTHER ==
[~2019-07-11] MED LIST changes: +DENOSUMAB 60 MG/ML 1 ML SYRINGE SQ NR; -DENOSUMAB 60 MG/ML 1 ML SYRINGE SQ ONE
[2019-07-11 13:29] VITALS: BP 149/69; PULSE 86; RESP 16; TEMP 98.4
== END | disposition home or self-care (01) ==
LOC: PROCWHC3 13:16
PROVIDERS: ATTEND Family Medicine
DX: M81.0 Age-related osteoporosis without current pathological fracture (principal)
CPT/HCPCS: 96372

== ENCOUNTER → 2020-01-30 | Outpatient (CLI) | payer MEDICARE ==
[~2020-01-30] MED LIST changes: -DENOSUMAB 60 MG/ML 1 ML SYRINGE SQ NR; +DENOSUMAB 60 MG/ML 1 ML SYRINGE SQ ONE
[2020-01-30 14:26] VITALS: BP 128/85; PULSE 87; RESP 16; TEMP 98.1
== END | disposition home or self-care (01) ==
LOC: PROCWHC3 13:51
PROVIDERS: ATTEND Family Medicine
DX: M81.0 Age-related osteoporosis without current pathological fracture (principal)
CPT/HCPCS: 96372; J0897

== ENCOUNTER → 2020-03-31 | Outpatient (CLI) | payer MEDICARE ==
--- NOTE | 2020-03-31 10:03 | US ---
EXAMINATION TYPE: US abdomen comp/pelvis limited DATE OF EXAM: 03/31/2020 COMPARISON: NONE CLINICAL HISTORY: R10.9 Abdominal Pain, R39.9. Pain EXAM MEASUREMENTS: Liver Length: 15.8 cm Gallbladder Wall: cm CBD: .5 cm Spleen: 9.8 cm Right Kidney: 9.5 x 3.2 x 3.5 cm Left Kidney: 9.1 x 3.4 x 4.0 cm EXAMINATION TYPE: US abdomen comp/pelvis limited DATE OF EXAM: 03/31/2020 COMPARISON: NONE CLINICAL HISTORY: R10.9 Abdominal Pain, R39.9. EXAM MEASUREMENTS: Liver Length: 15.8 cm Gallbladder Wall: Surgically absent cm CBD: .5 cm Spleen: 9.8 cm Right Kidney: 9.5 x 3.2 x 3.5 cm Left Kidney: 9.1 x 3.4 x 4.0 cm Pancreas: Obscured by bowel gas Liver: wnl Gallbladder: Surgically absent CBD: wnl Spleen: wnl Right Kidney: wnl Left Kidney: wnl Upper IVC: wnl Abd Aorta: wnl Bladder: Not fully distended Bilateral Jets Seen No IMPRESSION: 1. Postcholecystectomy changes.
== END | disposition home or self-care (01) ==
LOC: RADUSWWP 09:03
PROVIDERS: ATTEND Family Medicine
DX: R10.9 Unspecified abdominal pain (principal); Z90.49 Acquired absence of other specified parts of digestive tract
CPT/HCPCS: 76700; 76857

== ENCOUNTER → 2021-01-28 | Outpatient (CLI) | payer MEDICARE ==
[2021-01-28 10:00] LABS: HCT 38.5 % (34.0-46.0); MCH 31.2 pg (25.0-35.0); MCHC 33.7 g/dL (31.0-37.0); MCV 92.4 fL (80.0-100.0); Mean Platelet Volume 7.5; Platelet Count 316 k/uL (150-450); RBC 4.17 m/uL (3.80-5.40); WBC 5.7 k/uL (3.8-10.6)
[2021-01-28 10:30] LABS: Potassium 4.4 mmol/L (3.5-5.1)
== END | disposition home or self-care (01) ==
LOC: LABWHC1 08:54
PROVIDERS: ATTEND Internal Medicine Interventional Cardiology
DX: Z01.812 Encounter for preprocedural laboratory examination (principal); R94.39 Abnormal result of other cardiovascular function study
CPT/HCPCS: 36415; 80051; 82565; 84520; 85027

== ENCOUNTER 2021-02-03 09:30 | Day surgery (SDC) | payer MEDICARE ==
[2021-02-02 12:59] VITALS: BMI 32.5
[~2021-02-03 09:30] MED LIST changes: +ALPRAZolam 0.25 MG TAB PO PRN; +ALPRAZolam 0.5 MG TAB PO PRN; +ASPIRIN 325 MG TAB PO STA; +ATORVASTATIN 80 MG TAB PO STA; -DENOSUMAB 60 MG/ML 1 ML SYRINGE SQ ONE; +HEPARIN SODIUM,PORCINE 10,000 UNIT in SODIUM CHLORIDE 0.9% 1,000 ML IRRIGATION PRN; +HEPARIN SODIUM,PORCINE 2,500 UNIT in SODIUM CHLORIDE 0.9% 250 ML IRRIGATION PRN; +NITROGLYCERIN SL TABS 0.4 MG TAB SUBLINGUAL PRN; +SODIUM CHLORIDE 0.9% 1,000 ML in EMPTY BAG 1 BAG IV ONE
[2021-02-03 10:02] VITALS: RESP 18; TEMP 98.4
[2021-02-03] MEDS ORDERED: VERAPAMIL 2.5 MG/ML 2 ML AMP ONE (10:22)
[2021-02-03] MEDS ORDERED: HEPARIN SODIUM 1,000 UN/ML (10ML VL) ONE (10:22)
[2021-02-03] MEDS ORDERED: LIDOCAINE 1% INJ 10MG/ML (20 ML MDV) ONE (10:22)
[2021-02-03] MEDS ORDERED: fentaNYL (PF) 50 MCG/ML 2 ML AMP ONE (10:23)
[2021-02-03] MEDS ORDERED: fentaNYL (PF) 50 MCG/ML 2 ML AMP IVP ONE (10:49)
[2021-02-03] MEDS ORDERED: LIDOCAINE 1% INJ 10MG/ML (20 ML MDV) SQ ONE (10:50)
[2021-02-03] MEDS ORDERED: VERAPAMIL SYRINGE (5 MG/10 ML) INTRAARTER ONE (10:53)
[2021-02-03] MEDS ORDERED: METOPROLOL TARTRATE 5 MG/5 ML VIAL IVP ONE ×4 (10:56→11:04)
[2021-02-03] MEDS ORDERED: MIDAZOLAM 2 MG/2 ML VIAL IVP ONE (10:58)
[2021-02-03] MEDS ORDERED: HEPARIN SODIUM 1,000 UN/ML (10ML VL) IVP ONE (11:01)
[2021-02-03] MEDS ORDERED: IOPAMIDOL-370 125ML BTL INJ ONE (11:09)
[2021-02-03] MEDS ORDERED: RX INFO: IV CONTRAST WAS GIVEN 1 EACH MISC MISCELLANE PRN (11:18)
[2021-02-03] MEDS ORDERED: METOPROLOL TARTRATE 25 MG TAB PO SCH (11:30)
[2021-02-03] MEDS ORDERED: SODIUM CHLORIDE 0.9% 1,000 ML IV SCH (11:30)
[2021-02-03] MEDS ORDERED: ACETAMINOPHEN TAB 325 MG TAB ONE (12:41)
[2021-02-03 15:28] VITALS: BP 134/62; PULSE 66
--- NOTE | 2021-02-03 17:21 | CC ---
CARDIAC CATHETERIZATION REPORT HISTORY: Mrs. Sweet is a 71-year-old female known history of hypertension, hyperlipidemia, history of cardiac disease, who has been complaining of episode of chest discomfort on and off. She underwent a myocardial perfusion imaging that revealed anterior wall ischemia. In view of that, recommendation regarding cardiac catheterization, the procedure as well as the risks and complications were discussed with the patient who is in full understanding and agreement. PROCEDURE: Patient was brought to slab off mill tender in a fasting semi-sedated state. After receiving fentanyl and Benadryl and achieving moderate conscious sedated state, using Xylocaine anesthesia and Seldinger technique, a 6-Montserratian sheath was introduced in the right jugular artery. Selective right and left coronary angiography performed using 5-Montserratian 3.5 Bend catheter. Multiple views including hemiaxial views obtained. Following that, 5- Montserratian tight pigtail catheter was introduced in the left ventricle and pressures were calculated. Following that, catheter and sheath were removed. Hemostasis was obtained with deployment of TR band. There was no immediate complication. Patient was returned to room in stable condition. Of note, the patient received 4000 units of intravenous heparin as well as intra-arterial verapamil. FINDINGS: LEFT MAIN: This is a large-sized vessel, bifurcating into left circumflex, left anterior descending artery. Left main coronary artery has no evidence of high-grade stenosis. LEFT ANTERIOR DESCENDING ARTERY: This is a large-sized vessel giving rise to a large proximal diagonal branch. The left and descending artery as well as branches has no evidence of obstructive lung disease. LEFT CIRCUMFLEX: This is a dominant vessel giving rise to two obtuse marginal branches, distally bifurcating PDA and posterolateral segment and branches. Left circumflex and its branches have no evidence of obstructive disease. RIGHT CORONARY ARTERY: This is a small nondominant vessel that has no evidence of high- grade stenosis. LEFT VENTRICULOGRAM: Left ventriculogram was not performed. HEMODYNAMICS: There was no gradient across the aortic valve. The ventricle end-diastolic pressure was 10-14 mmHg. CONCLUSION: 1. Normal coronary arteries. 2. Left dominant. RECOMMENDATIONS: Patient will be continued on the present therapy. Of note, during the procedure patient went in atrial fibrillation. She has been having palpitations at home on and off, but atrial fibrillation was never documented. In view of that, her medical regimen will be adjusted and anticoagulation will be initiated and depending on her progress further recommendation will be made. Those findings and recommendation were discussed with the patient and family who were in full understanding and agreement. Duration of sedation is 19 minutes. MMODL / IJN: [id number] /
[2021-02-04] MEDS ORDERED: ATORVASTATIN 40 MG TAB PO SCH (09:00)
[2021-02-04] MEDS ORDERED: LOSARTAN 50 MG TAB PO SCH (09:00)
[2021-02-04] MEDS ORDERED: TRIAMTERENE-HCTZ 37.5-25MG 1 EACH CAP PO SCH (09:00)
[2021-02-04] MEDS ORDERED: PANTOPRAZOLE 40 MG TABLET PO SCH (09:00)
[2021-02-04] MEDS ORDERED: LEVOTHYROXINE 100 MCG TAB PO SCH (09:00)
== END 2021-02-03 15:48 | disposition home or self-care (01) ==
LOC: CATHCVL 09:30
PROVIDERS: ATTEND Internal Medicine Interventional Cardiology
DX: R07.89 Other chest pain (principal); R94.39 Abnormal result of other cardiovascular function study; E78.00 Pure hypercholesterolemia, unspecified; I10 Essential (primary) hypertension; Z82.49 Family history of ischemic heart disease and other diseases of the circulatory system; I73.9 Peripheral vascular disease, unspecified; E78.5 Hyperlipidemia, unspecified; M19.90 Unspecified osteoarthritis, unspecified site; E07.9 Disorder of thyroid, unspecified; Z90.710 Acquired absence of both cervix and uterus; Z90.49 Acquired absence of other specified parts of digestive tract; Z87.891 Personal history of nicotine dependence; Z79.82 Long term (current) use of aspirin; Z79.890 Hormone replacement therapy; Z79.899 Other long term (current) drug therapy; Z88.1 Allergy status to other antibiotic agents; Z88.8 Allergy status to other drugs, medicaments and biological substances
CPT/HCPCS: 93458; 87635; C1894; C1769; J2250; J2001; J3010; J1644; Q9967

== ENCOUNTER → 2021-07-01 | Outpatient (CLI) | payer MEDICARE ==
[2021-07-01 13:46] LABS: Appearance,Urine Clear (Clear); Bilirubin,Urine Negative (Negative); Blood,Urine Negative (Negative); Color,Urine Light Yellow; Glucose,Urine (UA) Negative (Negative); Ketones,Urine Negative (Negative); Leukocyte Esterase,Urine Negative (Negative); Nitrite,Urine Negative (Negative); PH, Urine 7.5 (5.0-8.0); Protein,Urine Negative (Negative); Specific Gravity,Urine 1.007 (1.001-1.035); Urobilinogen,Urine <2.0 mg/dL (<2.0)
[2021-07-01 19:24] LABS: African American GFR (CKD) 60.5 (60.0-200.0); Albumin 4.6 g/dL (3.8-4.9); Albumin/Globulin Ratio 1.8 (1.60-3.17); Anion Gap 14.9 mmol/L (4.00-12.00); BUN/Creat Ratio 14.39 Ratio (12.00-20.00); Blood Urea Nitrogen 15.4 mg/dL (9.0-27.0); Carbon Dioxide 21.8 mmol/L (21.6-31.8); Globulin 2.6 g/dL (1.6-3.3); Non-African American GFR(CKD) 52.2 (60.0-200.0); Phosphorus 4.3 mg/dL (2.4-5.1); Potassium 4.1 mmol/L (3.5-5.5); Total Protein 7.2 g/dL (6.2-8.2)
[2021-07-01 20:00] LABS: Hepatitis A Antibody IgM Nonreactive (Nonreactive); Hepatitis B Core IgM Nonreactive (Nonreactive); Hepatitis B Surface Antigen Nonreactive (Nonreactive); Hepatitis C IgG Antibody Nonreactive (Nonreactive)
== END | disposition home or self-care (01) ==
LOC: LABWHC1 11:12
PROVIDERS: ATTEND Family Medicine
DX: U07.1 COVID-19 (principal); N18.9 Chronic kidney disease, unspecified; R74.8 Abnormal levels of other serum enzymes
CPT/HCPCS: 36415; 80053; 80074; 81003; 82550; 82977; 83970; 84100; 86769

== ENCOUNTER → 2021-07-05 | Outpatient (CLI) | payer MEDICARE ==
--- NOTE | 2021-07-05 15:25 | US ---
EXAMINATION TYPE: US abd limited kidneys/bladder DATE OF EXAM: 07/05/2021 COMPARISON: 03/31/2020 CLINICAL HISTORY: 71-year-old female R74.8 ABNORMAL LEVELS OF OTHER SERUM ENZYMES. TECHNIQUE: Multiple sonographic images of the right upper quadrant, kidneys, and bladder are obtained . FINDINGS: EXAM MEASUREMENTS: Liver Length: 13.9 cm Gallbladder: Surgically absent CBD: 0.6 cm Right Kidney: 9.1x4.6x3.9 cm Left Kidney 9.6x4.1x3.5 cm Pancreas: Tail slightly heterogenous Liver: wnl Gallbladder: Surgically absent Evidence for sonographic Mercado's sign: No CBD: wnl Right Kidney: No hydronephrosis Left Kidney: No hydronephrosis Underdistention of the bladder limits its evaluation. IMPRESSION: 1. No hydronephrosis. Under distention of the bladder limits its evaluation. 2. Borderline dilated bile duct at 6 mm likely due to postcholecystectomy status.
== END | disposition home or self-care (01) ==
LOC: RADUSWWP 10:20
PROVIDERS: ATTEND Family Medicine
DX: R74.8 Abnormal levels of other serum enzymes (principal)
CPT/HCPCS: 76705; 76770

== ENCOUNTER → 2021-09-14 | Outpatient (CLI) | payer MEDICARE ==
[2021-09-14 15:00] LABS: Basophils # (A) 0.02 X 10*3/uL (0.00-0.10); Basophils % (A) 0.2 %; Eosinophils # (A) 0.01 X 10*3/uL (0.04-0.35); Eosinophils % (A) 0.1 %; HCT 40.2 % (37.2-46.3); HGB 13.4 g/dL (12.0-15.0); Lymphocytes # (A) 1.36 X 10*3/uL (0.90-5.00); Lymphocytes % (A) 14.9 %; MCH 31.6 pg (27.0-32.0); MCHC 33.3 g/dL (32.0-37.0); MCV 94.8 fL (80.0-97.0); Mean Platelet Volume 9.9 fL (9.5-12.2); Monocytes # (A) 0.78 X 10*3/uL (0.20-1.00); Monocytes % (A) 8.6 %; Neutrophils # (A) 6.89 X 10*3/uL (1.80-7.70); Neutrophils % (A) 75.5 %; Platelet Count 391 X 10*3/uL (140-440); RBC 4.24 X 10*6/uL (4.10-5.20); RDW 11.8 % (11.5-14.5); WBC 9.12 X 10*3/uL (4.50-10.00)
[2021-09-14 17:13] LABS: Ceruloplasmin 24.9 mg/dL (20.0-60.0)
[2021-09-14 17:23] LABS: % Iron Saturation 30.16 (12.00-45.00); ALT 24 U/L (8-44); AST 25 U/L (13-35); African American GFR (CKD) 53.2 (60.0-200.0); Albumin 4.7 g/dL (3.8-4.9); Albumin/Globulin Ratio 1.62 (1.60-3.17); Alkaline Phosphatase 132 U/L (41-126); BUN/Creat Ratio 17.73 Ratio (12.00-20.00); Blood Urea Nitrogen 21.1 mg/dL (9.0-27.0); Calcium 9.7 mg/dL (8.7-10.3); Carbon Dioxide 18.6 mmol/L (20.0-27.5); Chloride 92 mmol/L (96-109); Chol/HDL Ratio 3.75 Ratio; Ferritin 87.6 ng/mL (10.0-291.0); Globulin 2.9 g/dL (1.6-3.3); Glucose 100 mg/dL (70-110); Iron 125 ug/dL (50-170); LDL Cholesterol,Calculated 150.7 mg/dL (0.0-131.0); Non-African American GFR(CKD) 45.9 (60.0-200.0); Potassium 3.7 mmol/L (3.5-5.5); Sodium 128 mmol/L (135-145); Total Iron Binding Capacity 414 ug/dL (228-460); Total Protein 7.6 g/dL (6.2-8.2)
[2021-09-15 16:23] LABS: Albumin 4.57 g/dL (3.80-4.90); Gamma Globulin 0.93 g/dL (0.70-1.50)
== END | disposition home or self-care (01) ==
LOC: LABWHC1 10:42
PROVIDERS: ATTEND Nurse Practitioner Adult Health
DX: E78.2 Mixed hyperlipidemia (principal); R74.8 Abnormal levels of other serum enzymes
CPT/HCPCS: 36415; 80053; 80061; 82103; 82390; 82728; 83516; 83540; 83550; 84165; 85025; 86038

== ENCOUNTER 2021-09-15 05:38 | Observation (INO) | payer MEDICARE ==
[2021-09-15 06:16] LABS: Appearance,Urine Clear (Clear); Bilirubin,Urine Negative (Negative); Blood,Urine Negative (Negative); Color,Urine Light Yellow; Glucose,Urine (UA) Negative (Negative); Ketones,Urine Negative (Negative); Leukocyte Esterase,Urine Negative (Negative); Nitrite,Urine Negative (Negative); Protein,Urine Trace (Negative); Specific Gravity,Urine 1.008 (1.001-1.035); Urobilinogen,Urine <2.0 mg/dL (<2.0)
[2021-09-15 06:31] LABS: Basophils % (A) 0 %; Eosinophils % (A) 1 %; HCT 39.8 % (34.0-46.0); HGB 13.5 gm/dL (11.4-16.0); Lymphocytes # (A) 1.3 k/uL (1.0-4.8); Lymphocytes % (A) 15 %; MCH 31.9 pg (25.0-35.0); MCHC 33.9 g/dL (31.0-37.0); MCV 94.1 fL (80.0-100.0); Mean Platelet Volume 6.8; Monocytes # (A) 0.8 k/uL (0-1.0); Monocytes % (A) 10 %; Neutrophils # (A) 6.3 k/uL (1.3-7.7); Neutrophils % (A) 74 %; Platelet Count 340 k/uL (150-450); RBC 4.23 m/uL (3.80-5.40); RDW 12.2 % (11.5-15.5); WBC 8.5 k/uL (3.8-10.6)
--- NOTE | 2021-09-15 06:31 | XR ---
EXAM: XR Chest, 2 Views CLINICAL HISTORY: ITS.REASON XR Reason: syncope TECHNIQUE: Frontal and lateral views of the chest. COMPARISON: No relevant prior studies available. FINDINGS: Lungs: Unremarkable. No consolidation. Pleural space: Unremarkable. No pneumothorax. Heart: Unremarkable. No cardiomegaly. Mediastinum: Unremarkable. Bones/joints: Unremarkable. IMPRESSION: No infiltrate.
--- NOTE | 2021-09-15 06:36 | ED ---
General Adult HPI - General Chief complaint: Syncope Stated complaint: Fall, Chest Pain Time Seen by Provider: 09/15/21 06:23 Source: patient, EMS Mode of arrival: EMS Limitations: no limitations - History of Present Illness Initial comments: 71-year-old female presents to the emergency room for a chief complaint of syncope. Patient states she woke up this morning and had pain in her chest. The pain was sharp and aching. States she has never had this pain before. She started walking to the bathroom and got lightheaded. She felt like she was goi ng to pass out so she tried to sit down on the toilet but fell forward and hit her head on the ceramic tile. Patient believes she did lose consciousness. Patient relates of headache and neck pain. States the chest pain is gone. She did have 2 more episodes of lightheadedness in the emergency department. Patient does take eliquis for Afib. Patient is not having any pain at this time. Patient has no other complaints at this time including shortness of breath, chest pain, abdominal pain, nausea or vomiting, or visual changes. - Related Data Home Medications Medication Instructions Recorded Confirmed Calcium Carbonate [Calcium] 1,200 mg PO DAILY 10/22/17 02/02/21 Levothyroxine Sodium 100 mcg PO DAILY 10/22/17 02/03/21 Triamterene-Hctz 37.5-25Mg 1 cap PO DAILY 10/22/17 02/03/21 [Dyazide 37.5-25 Capsule] Vitamin B Complex 1 cap PO DAILY 10/22/17 02/03/21 Atorvastatin [Lipitor] 40 mg PO DAILY 02/02/21 02/03/21 Cholecalciferol [Vitamin D3 (25 25 mcg PO DAILY 02/02/21 02/03/21 Mcg = 1000 Iu)] Losartan [Cozaar] 50 mg PO DAILY 02/02/21 02/03/21 Nortriptyline [Pamelor] 10 - 20 mg PO HS PRN 02/02/21 02/03/21 Pantoprazole Sodium [Protonix] 40 mg PO DAILY 02/02/21 02/03/21 Zinc 50 mg PO DAILY 02/02/21 02/03/21 Rizatriptan Benzoate [Maxalt] 10 mg PO DAILY 02/03/21 02/03/21 Previous Rx's Medication Instructions Recorded Apixaban [Eliquis] 5 mg PO BID #180 tab 02/03/21 Metoprolol Tartrate [Lopressor] 25 mg PO BID #180 tab 02/03/21 Allergies Allergy/AdvReac Type Severity Reaction Status Date / Time cefaclor [From Ceclor] Allergy Rash/Hives Verified 02/03/21 09:54 clarithromycin [From Biaxin] AdvReac Nausea Verified 02/03/21 09:54 hydromorphone [From Dilaudid] AdvReac Hallucinati Verified 02/03/21 09:54 ons levofloxacin [From Levaquin] AdvReac Nausea Verified 02/03/21 09:54 methylprednisolone AdvReac Rash/Hives Verified 02/03/21 09:54 [From Medrol] ofloxacin [From Floxin] AdvReac Nausea Verified 02/03/21 09:54 topiramate [From Topamax] AdvReac Nausea Verified 02/03/21 09:54 Review of Systems ROS Statement: Those systems with pertinent positive or pertinent negative responses have been documented in the HPI. ROS Other: All systems not noted in ROS Statement are negative. Past Medical History Past Medical History: Chest Pain / Angina, Fibromyalgia, GERD/Reflux, Hyperlipidemia, Hypertension, Musculoskeletal Disorder, Osteoarthritis (OA), Thyroid Disorder Additional Past Medical History / Comment(s): migraines, IBS, hypothyroid, swollen feet due to lack of veins in legs, ulcers, past hx. 5 lung nodules-never needed tx. for, was monitored, mitral, aortic, tricuspid valve regurge. bulging discs in back, bone spurs, neck problems & decreased ROM, sometimes dysphagia History of Any Multi-Drug Resistant Organisms: None Reported Past Surgical History: Breast Surgery, Cholecystectomy, Hysterectomy, Orthopedic Surgery Additional Past Surgical History / Comment(s): exp. surgery as a kid to see why feet swell findings were lack of veins in legs, left breast cyst removal, exp. laparotomy for "twisted bowel", colonoscopy, achilles tendon repair, EGD w/dilatation's Past Anesthesia/Blood Transfusion Reactions: Previous Problems w/ Anesthesia Additional Past Anesthesia/Blood Transfusion Reaction / Comment(s): told has narrow opening & needs smaller "tube", difficult intubation w/anth[facility] Past Psychological History: No Psychological Hx Reported Smoking Status: Never smoker Past Alcohol Use History: None Reported Past Drug Use History: None Reported - Past Family History Mother Family Medical History: Coronary Artery Disease (CAD) Father Family Medical History: Coronary Artery Disease (CAD) Additional Family Medical History / Comment(s): cabg Sister(s) Family Medical History: Cancer Additional Family Medical History / Comment(s): breast cancer twice Son(s) Family Medical History: No Reported History General Exam Limitations: no limitations General appearance: alert, in no apparent distress Head exam: Present: atraumatic Eye exam: Present: normal appearance, PERRL, EOMI. Absent: scleral icterus, conjunctival injection ENT exam: Present: normal exam, mucous membranes moist Neck exam: Present: normal inspection, full ROM. Absent: tenderness Respiratory exam: Present: normal lung sounds bilaterally. Absent: respiratory distress, wheezes Cardiovascular Exam: Present: regular rate, normal rhythm, normal heart sounds GI/Abdominal exam: Present: soft, normal bowel sounds. Absent: distended, tenderness Neurological exam: Present: alert Course Vital Signs 09/15/21 05:54 Temperature 98.4 F Pulse Rate 62 Respiratory 16 Rate Blood Pressure 196/74 O2 Sat by Pulse 100 Oximetry EKG Findings - EKG Comments: EKG Findings:: Sinus bradycardia, ventricular rate 56, MI interval 170, QTC 420. Repeat EKG at 8:07 AM: Normal sinus rhythm, Ventricular rate 63, MI interval 152, QTC 452 Medical Decision Making - Medical Decision Making CT brain shows no acute intracranial process. CT cervical spine shows no acute fracture or subluxation. Vitals are stable. Patient hypertensive likely secondary to pain. Laboratory evaluation unremarkable. There is some mild dehydration noted. Urinalysis is negative. Troponin negative. EKG nonischemic. Patient started to develop worsening pain again a couple hours into her stay. Repeat EKG was obtained which was again unremarkable. CT aorta showed no aortic aneurysm or dissection. Case discussed with Dr. Mcdonald. At this time patient will be admitted for cardiology consultation and repeat troponin. - Lab Data Result diagrams: 09/15/21 06:22 09/15/21 06:22 Lab Results 09/15/21 09/15/21 09/15/21 Range/Units 06:01 06:22 06:22 WBC 8.5 (3.8-10.6) k/uL RBC 4.23 (3.80-5.40) m/uL Hgb 13.5 (11.4-16.0) gm/dL Hct 39.8 (34.0-46.0) % MCV 94.1 (80.0-100.0) fL MCH 31.9 (25.0-35.0) pg MCHC 33.9 (31.0-37.0) g/dL RDW 12.2 (11.5-15.5) % Plt Count 340 (150-450) k/uL MPV 6.8 Neutrophils % 74 % Lymphocytes % 15 % Monocytes % 10 % Eosinophils % 1 % Basophils % 0 % Neutrophils # 6.3 (1.3-7.7) k/uL Lymphocytes # 1.3 (1.0-4.8) k/uL Monocytes # 0.8 (0-1.0) k/uL Eosinophils # 0.0 (0-0.7) k/uL Basophils # 0.0 (0-0.2) k/uL PT 11.0 (9.0-12.0) sec INR 1.0 (<1.2) APTT 22.7 (22.0-30.0) sec D-Dimer (<0.60) mg/L FEU Sodium (137-145) mmol/L Potassium (3.5-5.1) mmol/L Chloride (98-107) mmol/L Carbon Dioxide (22-30) mmol/L Anion Gap mmol/L BUN (7-17) mg/dL Creatinine (0.52-1.04) mg/dL Est GFR (CKD-EPI)AfAm (>60 ml/min/1.73 sqM) Est GFR (CKD-EPI)NonAf (>60 ml/min/1.73 sqM) Glucose (74-99) mg/dL Calcium (8.4-10.2) mg/dL Total Bilirubin (0.2-1.3) mg/dL AST (14-36) U/L ALT (4-34) U/L Alkaline Phosphatase (38-126) U/L Troponin I (0.000-0.034) ng/mL Total Protein (6.3-8.2) g/dL Albumin (3.5-5.0) g/dL Lipase (23-300) U/L Urine Color Light Yellow Urine Appearance Clear (Clear) Urine pH 7.0 (5.0-8.0) Ur Specific [place] 1.008 (1.001-1.035) Urine Protein Trace H (Negative) Urine Glucose (UA) Negative (Negative) Urine Ketones Negative (Negative) Urine Blood Negative (Negative) Urine Nitrite Negative (Negative) Urine Bilirubin Negative (Negative) Urine Urobilinogen <2.0 (<2.0) mg/dL Ur Leukocyte Esterase Negative (Negative) 09/15/21 09/15/21 09/15/21 Range/Units 06:22 06:22 06:22 WBC (3.8-10.6) k/uL RBC (3.80-5.40) m/uL Hgb (11.4-16.0) gm/dL Hct (34.0-46.0) % MCV (80.0-100.0) fL MCH (25.0-35.0) pg MCHC (31.0-37.0) g/dL RDW (11.5-15.5) % Plt Count (150-450) k/uL MPV Neutrophils % % Lymphocytes % % Monocytes % % Eosinophils % % Basophils % % Neutrophils # (1.3-7.7) k/uL Lymphocytes # (1.0-4.8) k/uL Monocytes # (0-1.0) k/uL Eosinophils # (0-0.7) k/uL Basophils # (0-0.2) k/uL PT (9.0-12.0) sec INR (<1.2) APTT (22.0-30.0) sec D-Dimer 0.50 (<0.60) mg/L FEU Sodium 130 L (137-145) mmol/L Potassium 3.3 L (3.5-5.1) mmol/L Chloride 99 (98-107) mmol/L Carbon Dioxide 23 (22-30) mmol/L Anion Gap 8 mmol/L BUN 20 H (7-17) mg/dL Creatinine 1.14 H (0.52-1.04) mg/dL Est GFR (CKD-EPI)AfAm 56 (>60 ml/min/1.73 sqM) Est GFR (CKD-EPI)NonAf 49 (>60 ml/min/1.73 sqM) Glucose 123 H (74-99) mg/dL Calcium 9.6 (8.4-10.2) mg/dL Total Bilirubin 0.9 (0.2-1.3) mg/dL AST 28 (14-36) U/L ALT 25 (4-34) U/L Alkaline Phosphatase 123 (38-126) U/L Troponin I <0.012 (0.000-0.034) ng/mL Total Protein 7.5 (6.3-8.2) g/dL Albumin 4.3 (3.5-5.0) g/dL Lipase (23-300) U/L Urine Color Urine Appearance (Clear) Urine pH (5.0-8.0) Ur Specific [place] (1.001-1.035) Urine Protein (Negative) Urine Glucose (UA) (Negative) Urine Ketones (Negative) Urine Blood (Negative) Urine Nitrite (Negative) Urine Bilirubin (Negative) Urine Urobilinogen (<2.0) mg/dL Ur Leukocyte Esterase (Negative) 09/15/21 Range/Units 06:22 WBC (3.8-10.6) k/uL RBC (3.80-5.40) m/uL Hgb (11.4-16.0) gm/dL Hct (34.0-46.0) % MCV (80.0-100.0) fL MCH (25.0-35.0) pg MCHC (31.0-37.0) g/dL RDW (11.5-15.5) % Plt Count (150-450) k/uL MPV Neutrophils % % Lymphocytes % % Monocytes % % Eosinophils % % Basophils % % Neutrophils # (1.3-7.7) k/uL Lymphocytes # (1.0-4.8) k/uL Monocytes # (0-1.0) k/uL Eosinophils # (0-0.7) k/uL Basophils # (0-0.2) k/uL PT (9.0-12.0) sec INR (<1.2) APTT (22.0-30.0) sec D-Dimer (<0.60) mg/L FEU Sodium (137-145) mmol/L Potassium (3.5-5.1) mmol/L Chloride (98-107) mmol/L Carbon Dioxide (22-30) mmol/L Anion Gap mmol/L BUN (7-17) mg/dL Creatinine (0.52-1.04) mg/dL Est GFR (CKD-EPI)AfAm (>60 ml/min/1.73 sqM) Est GFR (CKD-EPI)NonAf (>60 ml/min/1.73 sqM) Glucose (74-99) mg/dL Calcium (8.4-10.2) mg/dL Total Bilirubin (0.2-1.3) mg/dL AST (14-36) U/L ALT (4-34) U/L Alkaline Phosphatase (38-126) U/L Troponin I (0.000-0.034) ng/mL Total Protein (6.3-8.2) g/dL Albumin (3.5-5.0) g/dL Lipase 88 (23-300) U/L Urine Color Urine Appearance (Clear) Urine pH (5.0-8.0) Ur Specific [place] (1.001-1.035) Urine Protein (Negative) Urine Glucose (UA) (Negative) Urine Ketones (Negative) Urine Blood (Negative) Urine Nitrite (Negative) Urine Bilirubin (Negative) Urine Urobilinogen (<2.0) mg/dL Ur Leukocyte Esterase (Negative) Disposition Clinical Impression: Chest pain Disposition: ADMITTED IP TO THIS HOSP Is patient prescribed a controlled substance at d/c from ED?: No Referrals: Charles Shahid MD [Primary Care Provider] - 1-2 days Time of Disposition: 09:46
[2021-09-15 06:47] LABS: Partial Thromboplastin Time 22.7 sec (22.0-30.0)
[2021-09-15 06:51] LABS: Albumin 4.3 g/dL (3.5-5.0); Calcium 9.6 mg/dL (8.4-10.2); Potassium 3.3 mmol/L (3.5-5.1); Total Bilirubin 0.9 mg/dL (0.2-1.3); Total Protein 7.5 g/dL (6.3-8.2)
[2021-09-15] MEDS ORDERED: MORPHINE SULFATE 4 MG/ML SYRINGE IVP STA (07:18)
--- NOTE | 2021-09-15 07:23 | CT ---
EXAMINATION TYPE: CT brain gladys baugh DATE OF EXAM: 09/15/2021 COMPARISON: 713 HISTORY: head injury Unenhanced CT of the brain was performed. The ventricles, basal cisterns and sulci overlying the cerebral convexities demonstrate mild enlargem ent. There is no evidence for intracranial hemorrhage or sulcal effacement. There is decreased attenuatio n about the periventricular white matter and deep white matter of both cerebral hemispheres, compatib le with chronic small vessel ischemia. No mass effects are seen. If symptoms persist consider MRI. Osseous calvarium is intact. IMPRESSION: 1. Age related atrophic and chronic small vessel ischemic change without acute intracranial process seen at this time. CT Cervical Spine: Unenhanced CT of the cervical spine was performed with bone and soft tissue window settings submitted . Coronal and sagittal reconstruction is obtained. There is normal alignment and prevertebral soft tissues. No evidence for acute cervical fracture . Scattered degenerative disc disease and spondylosis. Biapical scarring. IMPRESSION: 1. No evidence for acute fracture or subluxation of the cervical spine.
[2021-09-15] MEDS ORDERED: SODIUM CHLORIDE 0.9% 500 ML 500 ML IV STA (08:15)
[2021-09-15] MEDS: HYDROmorphone 0.5 MG/0.5 ML SYRINGE IVP STA ×2 (08:45→11:43)
--- NOTE | 2021-09-15 09:34 | CT ---
EXAMINATION TYPE: CT angio thor/abd pel aorta DATE OF EXAM: 09/15/2021 COMPARISON: CT abdomen January 28, 2011. HISTORY: Fall, Chest pain CT DLP: 1554.6 mGycm. Automated Exposure Control for Dose Reduction was Utilized. CONTRAST: CTA scan of the thorax, abdomen and pelvis is performed without and with IV Contrast, patient injecte d with 80 ml mL of Isovue 370. Dissection protocol with 3-D reconstructed images created on an [email or web address] workstation and reviewed. FINDINGS: VASCULAR: No suspicious hyperdense material to suggest intramural hematoma. Postcontrast images show satisfactory enhancement of the central pulmonary arteries. There is satisfactory enhancement of the aorta with mild peripheral plaque in the arch. Normal three-vessel origin without significant plaque or stenosis. Mild peripheral mixed plaque in the descending thoracic aorta. Patent celiac artery and SMA along with bilateral single renal arteries and STACEY without significant plaque or stenosis. Iliac artery show no significant plaque or stenosis. There is extension through the femoral arteries and br anching without significant plaque or stenosis. No linear hypodensity to suggest dissection. No aneur ysm. LUNGS: Stable tiny nodularity in the periphery of the anterior right mid to lower lung axial image 30 . Lungs are grossly clear, there is no concerning new greater than 5 mm parenchymal mass or nodule i dentified. There is no pleural effusion or pneumothorax seen. The tracheobronchial tree is patent. MEDIASTINUM: There are no greater than 1 cm hilar or mediastinal lymph nodes. No cardiomegaly or pe ricardial effusion is seen. Calcification at level of the aortic valve. LIVER/GB: Cholecystectomy clips. PANCREAS: No significant abnormality is seen. SPLEEN: No significant abnormality is seen. ADRENALS: No significant abnormality is seen. KIDNEYS: No significant abnormality is seen. BOWEL: No significant abnormality is seen. GENITAL ORGANS: Uterus is Surgically absent. LYMPH NODES: No greater than 1cm abdominal or pelvic lymph nodes are appreciated. OSSEOUS STRUCTURES: Osseous structures are demineralized grade 1 anterolisthesis L4 on L5 and L5 on S 1. Moderate to severe disc space narrowing with vacuum disc phenomenon L4-L5 level. Mild to moderate disc space narrowing L5-S1 level. Anterior right lateral bridging osteophytes in the mid to lower tho racic spine. OTHER: Small size fat-containing umbilical hernia. IMPRESSION: No aortic aneurysm or dissection. No acute posttraumatic finding identified.
[2021-09-15] MEDS ORDERED: ASPIRIN 81 MG PO STA (09:45)
[2021-09-15] MEDS ORDERED: NITROGLYCERIN SL TABS 0.4 MG TAB SUBLINGUAL PRN (09:46)
[2021-09-15] MEDS ORDERED: POTASSIUM CHLORIDE ER 20 MEQ TAB.ER PO STA (09:49)
[2021-09-15] MEDS ORDERED: MAGNESIUM HYDROXIDE 2,400 MG/10 ML CUP PO PRN (11:07)
[2021-09-15] MEDS ORDERED: NALOXONE 0.4 MG/ML 1 ML VIAL IV PRN (11:07)
[2021-09-15] MEDS ORDERED: ONDANSETRON 4 MG/2 ML VIAL IVP PRN (11:07)
[2021-09-15] MEDS ORDERED: NORTRIPTYLINE 10 MG CAP PO PRN (11:37)
[2021-09-15] MEDS ORDERED: SUMAtriptan succinate 50 MG TAB PO PRN (11:37)
--- NOTE | 2021-09-15 11:42 | P.HPIM ---
History of Present Illness H&P Date: 09/15/21 71-year-old female with past medical history of hypertension likely A. fib admitted to the hospital with a syncopal episode patient states that she did have chest pain before. Resolved that stayed for around couple of minutes Currently patient doesn't have any chest pain or shortness of breath Review of systems and systems has been reviewed all negative and positive findings as per history of present illness Constitutional: No acute distress, conversant, pleasant Eyes: Anicteric sclerae, moist conjunctiva, no lid-lag PERRLA ENMT: NC/AT Oropharynx clear, no erythema, exudates Neck: Supple, FROM, no masses, or JVD No carotid bruits No thyromegaly Lungs: Clear to auscultation Clear to percussion Normal respiratory effort, no accessory muscle use Cardiovascular: Heart regular in rate and rhythm, No murmurs, gallops, or rubs No peripheral edema Abdominal: Soft Nontender, no guarding, rebound or rigidity Abdomen moving with respiration Normoactive bowel sounds No hepatomegaly, No splenomegaly No palpable mass No abdominal wall hernia noted Skin: Normal temperature, tone, texture, turgor No induration No subcutaneous nodules No rash, lesions No ulcers Extremities: No digital cyanosis No clubbing Pedal pulses intact and symmetrical Radial pulses intact and symmetrical Normal gait and station No calf tenderness Psychiatric:Alert and oriented to person, place and time Appropriate affect Intact judgement Neuro: Muscles Strength 5/5 in all 4 extremities Sensation to light touch grossly present throughout Cranial nerves II-XII grossly intact No focal sensory deficits Syncopal episode exact etiology not clear we'll consult neurology will check MRI of the brain Chest pain with typical and atypical features patient is to have a cardiac cath in January Cardiology has been consulted Hypertension Past Medical History Past Medical History: Chest Pain / Angina, Fibromyalgia, GERD/Reflux, Hyperlipidemia, Hypertension, Musculoskeletal Disorder, Osteoarthritis (OA), Thyroid Disorder Additional Past Medical History / Comment(s): migraines, IBS, hypothyroid, swollen feet due to lack of veins in legs, ulcers, past hx. 5 lung nodules-never needed tx. for, was monitored, mitral, aortic, tricuspid valve regurge. bulging discs in back, bone spurs, neck problems & decreased ROM, sometimes dysphagia History of Any Multi-Drug Resistant Organisms: None Reported Past Surgical History: Breast Surgery, Cholecystectomy, Hysterectomy, Orthopedic Surgery Additional Past Surgical History / Comment(s): exp. surgery as a kid to see why feet swell findings were lack of veins in legs, left breast cyst removal, exp. laparotomy for "twisted bowel", colonoscopy, achilles tendon repair, EGD w/dilatation's Past Anesthesia/Blood Transfusion Reactions: Previous Problems w/ Anesthesia Additional Past Anesthesia/Blood Transfusion Reaction / Comment(s): told has narrow opening & needs smaller "tube", difficult intubation w/anthony @[facility] Past Psychological History: No Psychological Hx Reported Smoking Status: Never smoker Past Alcohol Use History: None Reported Past Drug Use History: None Reported - Past Family History Mother Family Medical History: Coronary Artery Disease (CAD) Father Family Medical History: Coronary Artery Disease (CAD) Additional Family Medical History / Comment(s): cabg Sister(s) Family Medical History: Cancer Additional Family Medical History / Comment(s): breast cancer twice Son(s) Family Medical History: No Reported History Medications and Allergies Home Medications Medication Instructions Recorded Confirmed Type Calcium Carbonate [Calcium] 1,200 mg PO DAILY 10/22/17 09/15/21 History Levothyroxine Sodium 100 mcg PO DAILY 10/22/17 09/15/21 History Triamterene-Hctz 37.5-25Mg 1 cap PO DAILY 10/22/17 09/15/21 History [Dyazide 37.5-25 Capsule] Atorvastatin [Lipitor] 40 mg PO DAILY 02/02/21 09/15/21 History Cholecalciferol [Vitamin D3 (25 25 mcg PO DAILY 02/02/21 09/15/21 History Mcg = 1000 Iu)] Nortriptyline [Pamelor] 10 - 20 mg PO HS PRN 02/02/21 09/15/21 History Pantoprazole Sodium [Protonix] 40 mg PO BID 02/02/21 09/15/21 History Zinc 50 mg PO DAILY 02/02/21 09/15/21 History Apixaban [Eliquis] 5 mg PO BID #180 tab 02/03/21 09/15/21 Rx Metoprolol Tartrate [Lopressor] 25 mg PO BID #180 tab 02/03/21 09/15/21 Rx Rizatriptan Benzoate [Maxalt] 10 mg PO DAILY PRN 06/16/21 01/26/22 History Ascorbic Acid [Vitamin C] 1,000 mg PO DAILY 09/15/21 09/15/21 History Valsartan 80 mg PO DAILY 09/15/21 09/15/21 History Vitamin B Complex 1 cap PO DAILY 09/15/21 09/15/21 History Allergies Allergy/AdvReac Type Severity Reaction Status Date / Time cefaclor [From Ceclor] Allergy Rash/Hives Verified 09/15/21 09:55 clarithromycin [From Biaxin] AdvReac Nausea Verified 09/15/21 09:55 hydromorphone [From Dilaudid] AdvReac Hallucinati Verified 09/15/21 09:55 ons levofloxacin [From Levaquin] AdvReac Nausea Verified 09/15/21 09:55 methylprednisolone AdvReac Rash/Hives Verified 09/15/21 09:55 [From Medrol] ofloxacin [From Floxin] AdvReac Nausea Verified 09/15/21 09:55 topiramate [From Topamax] AdvReac Nausea Verified 09/15/21 09:55 Physical Exam Vitals: Vital Signs Temp Pulse Resp BP Pulse Ox 09/15/21 05:54 98.4 F 62 16 196/74 100 Intake and Output 09/14/21 09/15/21 09/15/21 22:59 06:59 14:59 Other: Weight 77.111 kg Results CBC & Chem 7: 09/15/21 06:22 09/15/21 06:22 Labs: Abnormal Lab Results - Last 24 Hours (Table) 09/15/21 09/15/21 Range/Units 06:01 06:22 Sodium 130 L (137-145) mmol/L Potassium 3.3 L (3.5-5.1) mmol/L BUN 20 H (7-17) mg/dL Creatinine 1.14 H (0.52-1.04) mg/dL Glucose 123 H (74-99) mg/dL Urine Protein Trace H (Negative)
--- NOTE | 2021-09-15 13:02 | P.CNNES ---
History of Present Illness Consult date: 09/15/21 Requesting physician: Lay Hernandez Reason for Consult: Syncope History of Present Illness: Patient is a 71-year-old female, otherwise healthy came to the hospital today at 5:38 AM for syncope versus seizure. Patient states that this morning at 4 AM while sleeping, she got up to go to the bathroom. She remembers that while she was walking to the bathroom, she started feeling intense chest pressure, pointing to the sternal region. She felt heavy feeling in the chest. She felt will pass out. She sat down in the toilet to pass the urine. The next thing she remembers is waking up after she cracked her head on the ceramic bathroom floor. As soon as she hit the floor, she was awake, new who she is where she is and that she has felt. She apparently bit her tongue with this fall. She tolerated her , who came over, and changed her pajamas, as she has passed urine in her pajamas. She is not sure if she passed out while she was passing the urine, or if it happened afterwards. She complained of intense head pain, neck was hurting, and her chest was still hurting. She told her to call the ambulance and patient was brought to the hospital at 5:30 AM. Patient states that the chest pressure was very severe, lasted for about half an hour. She still feels soreness in the left frontal region from the fall. She has a bruise and some cutaneous hematoma. Patient states that weeks ago she had an event, when she went to meet her grandson in a subway where he has just started working. She was tending, as the stool was almost closing, when she all of a sudden she felt incoherent, felt real distant, felt will pass out. She felt lightheaded. She did not feel good. She grabbed the counter, and sat down. The event lasted for 2 minutes and then passed. She was fine afterwards. He did not pass out. Patient states that she had history of heart catheterization on 02/03/2021. It was performed with chest pressure. She developed atrial fibrillation during cardiac catheterization. She was placed on metoprolol, Eliquis and losartan afterwards. Patient states that she was also started on Lipitor in January 2021. However in May 2021 she suffered from Covid-19, she was found to have elevated liver enzymes. It was felt to be related to statins which was discontinued on 07/08/2021. Patient has history of migraines since 1973 for which she used to see Dr. Cordero. Patient's blood test shows normal CBC, PT/PTT, d-dimer. Sodium 130 potassium 3.3, BUN 20, creatinine 1.14. Hepatic panel, troponins are normal. UA negative. Coronal virus PCR negative. Chest x-ray normal. CT of the cervical spine shows no evidence for acute fracture or subluxation. Computed tomography scan of the head shows age-related atrophic and chronic small vessel ischemic changes without acute injury or process seen at this time. I personally reviewed computed tomography scan of the head and agree with the findings. CTA of the chest showed no aortic aneurysm or dissection. EKG shows normal sinus rhythm. Review of Systems As above in detail. All other 14 points of review of systems reviewed are unremarkable. Past Medical History Past Medical History: Chest Pain / Angina, Fibromyalgia, GERD/Reflux, Hyperlipidemia, Hypertension, Musculoskeletal Disorder, Osteoarthritis (OA), Thyroid Disorder Additional Past Medical History / Comment(s): migraines, IBS, hypothyroid, swollen feet due to lack of veins in legs, ulcers, past hx. 5 lung nodules-never needed tx. for, was monitored, mitral, aortic, tricuspid valve regurge. bulging discs in back, bone spurs, neck problems & decreased ROM, sometimes dysphagia History of Any Multi-Drug Resistant Organisms: None Reported Past Surgical History: Breast Surgery, Cholecystectomy, Hysterectomy, Orthopedic Surgery Additional Past Surgical History / Comment(s): exp. surgery as a kid to see why feet swell findings were lack of veins in legs, left breast cyst removal, exp. laparotomy for "twisted bowel", colonoscopy, achilles tendon repair, EGD w/dilatation's Past Anesthesia/Blood Transfusion Reactions: Previous Problems w/ Anesthesia Additional Past Anesthesia/Blood Transfusion Reaction / Comment(s): told has narrow opening & needs smaller "tube", difficult intubation w/anthony @[facility] Past Psychological History: No Psychological Hx Reported Smoking Status: Never smoker Past Alcohol Use History: None Reported Past Drug Use History: None Reported - Past Family History Mother Family Medical History: Coronary Artery Disease (CAD) Father Family Medical History: Coronary Artery Disease (CAD) Additional Family Medical History / Comment(s): cabg Sister(s) Family Medical History: Cancer Additional Family Medical History / Comment(s): breast cancer twice Son(s) Family Medical History: No Reported History Medications and Allergies Home Medications Medication Instructions Recorded Confirmed Type Calcium Carbonate [Calcium] 1,200 mg PO DAILY 10/22/17 09/15/21 History Levothyroxine Sodium 100 mcg PO DAILY 10/22/17 09/15/21 History Triamterene-Hctz 37.5-25Mg 1 cap PO DAILY 10/22/17 09/15/21 History [Dyazide 37.5-25 Capsule] Atorvastatin [Lipitor] 40 mg PO DAILY 02/02/21 09/15/21 History Cholecalciferol [Vitamin D3 (25 25 mcg PO DAILY 02/02/21 09/15/21 History Mcg = 1000 Iu)] Nortriptyline [Pamelor] 10 - 20 mg PO HS PRN 02/02/21 09/15/21 History Pantoprazole Sodium [Protonix] 40 mg PO BID 02/02/21 09/15/21 History Zinc 50 mg PO DAILY 02/02/21 09/15/21 History Apixaban [Eliquis] 5 mg PO BID #180 tab 02/03/21 09/15/21 Rx Metoprolol Tartrate [Lopressor] 25 mg PO BID #180 tab 02/03/21 09/15/21 Rx Rizatriptan Benzoate [Maxalt] 10 mg PO DAILY PRN 02/03/21 09/15/21 History Ascorbic Acid [Vitamin C] 1,000 mg PO DAILY 09/15/21 09/15/21 History Valsartan 80 mg PO DAILY 09/15/21 09/15/21 History Vitamin B Complex 1 cap PO DAILY 09/15/21 09/15/21 History Allergies Allergy/AdvReac Type Severity Reaction Status Date / Time cefaclor [From Ceclor] Allergy Rash/Hives Verified 09/15/21 09:55 clarithromycin [From Biaxin] AdvReac Nausea Verified 09/15/21 09:55 hydromorphone [From Dilaudid] AdvReac Hallucinati Verified 09/15/21 09:55 ons levofloxacin [From Levaquin] AdvReac Nausea Verified 09/15/21 09:55 methylprednisolone AdvReac Rash/Hives Verified 09/15/21 09:55 [From Medrol] ofloxacin [From Floxin] AdvReac Nausea Verified 09/15/21 09:55 topiramate [From Topamax] AdvReac Nausea Verified 09/15/21 09:55 Physical Examination - Vital Signs Vital Signs: Vital Signs Temp Pulse Resp BP Pulse Ox 09/15/21 05:54 98.4 F 62 16 196/74 100 Intake and Output 09/14/21 09/15/21 09/15/21 22:59 06:59 14:59 Other: Weight 77.111 kg Patient is an elderly female, appears younger than her stated age. Patient is alert awake oriented to time place and person. Patient knows it is 09/15/2021. She can name and repeat very well. Speech and language functions are normal. Attention, concentration and fund of knowledge is adequate. On cranial examination, pupils are equal, 4 mm, round and reacting to light, visual villanueva are full on confrontation, extraocular muscles are intact with no nystagmus. Face is symmetric, tongue protrudes to the midline. Palatal elevation and sensation normal, hearing and shoulder shrug normal, facial sensation normal. Shoulder shrug normal. Patient is obvious bruising and some cutaneous hematoma on the left frontal region. On muscle strength testing, there is no pronator drift and the strength is normal in arms and legs distally and proximally. Deep tendon reflexes are 1 all over and plantars downgoing. Sensory to touch is equal with no neglect on double simultaneous stimulation.. Cerebellar function showed no ataxia for [id number] testing. No dysdiadochokinesia. Tone and bulk of muscles normal. Gait deferred. On general examination, there is no carotid bruit or murmur, S1-S2 audible. Abdomen is soft nontender. Bowel sounds are present. No organomegaly. Chest is clear. Peripheral pulses are present. No edema. Results - Laboratory Findings CBC and BMP: 09/15/21 06:22 09/15/21 06:22 Abnormal Lab Findings: Abnormal Labs 09/15/21 09/15/21 06:01 06:22 Sodium 130 L Potassium 3.3 L BUN 20 H Creatinine 1.14 H Glucose 123 H Urine Protein Trace H Assessment and Plan Assessment: * Syncope versus seizure. Patient did bit her tongue, and perhaps lost control of urine with this spell. Patient however did not have any postictal state, therefore seizure appears less likely. Arrhythmia also in the differential. * Acute chest pain prior to the syncopal event, therefore cardiac cause likely the possibility * Paroxysmal Atrial fibrillation on long-term anticoagulation with Eliquis Plan: * Patient is undergoing MRI of the brain. * We will also check EEG rule out epileptiform activity. * Cardiology following for chest pain, rule out arrhythmia. * Further management based upon above test results. * Thank you for the consult.
[2021-09-15] MEDS: APIXABAN 5 MG TAB PO SCH ×2 (13:21→20:19)
[2021-09-15] MEDS: METOPROLOL TARTRATE 25 MG TAB PO SCH ×2 (13:21→20:19)
[2021-09-15] MEDS: LEVOTHYROXINE 100 MCG TAB PO SCH (13:21)
[2021-09-15] MEDS: PANTOPRAZOLE 40 MG TABLET PO SCH ×2 (13:21→20:19)
[2021-09-15] MEDS: CALCIUM CARBONATE 500 MG CHEWABLE PO SCH (13:21)
[2021-09-15] MEDS: ATORVASTATIN 40 MG TAB PO SCH (13:21)
[2021-09-15] MEDS: SODIUM CHLORIDE 0.9% 1,000 ML IV SCH (13:24)
[2021-09-15] MEDS: ACETAMINOPHEN TAB 325 MG TAB PO PRN (13:30)
[2021-09-15] MEDS ORDERED: HYDROmorphone 0.2 MG/1 ML SYRINGE IVP PRN (16:18)
[2021-09-15] MEDS ORDERED: HYDROmorphone 0.5 MG/0.5 ML SYRINGE IVP PRN (16:29)
--- NOTE | 2021-09-15 18:55 | MR ---
EXAMINATION TYPE: MR brain wo con DATE OF EXAM: 09/15/2021 COMPARISON: CT brain earlier today. HISTORY: Syncope TECHNIQUE: Multiplanar, multisequence imaging of the brain and brainstem is performed without IV cont rast. FINDINGS: Diffusion weighted images demonstrate no evidence of a recent infarct or other diffusion abnormality. There is mild ventricular and sulcal prominence. A few scattered areas of T2 hyperintensity are seen throughout the white matter bilaterally. Approximately 10-15 scattered lesions are seen. These are no nspecific in appearance and distribution. T2 Star weighted images show no suspicious intraparenchymal blood product. Midline structures demonstrate normal morphology. The craniocervical junction appears within normal limits. Normal vascular flow voids are present. The visualized sinuses are clear and the globes are i ntact. No suspicious fluid signal bilateral mastoid air cells. IMPRESSION: No MRI evidence for recent infarct. Mild diffuse age-related cerebral atrophy and chronic small vessel ischemic change is present.
--- NOTE | 2021-09-15 19:59 | EEG ---
ELECTROENCEPHALOGRAM REPORT DATE OF SERVICE: 09/15/2021 PREAMBLE: This is a 71-year-old female with syncope versus seizure. This study is performed to evaluate for any epileptiform activity. EEG FINDINGS: This is a 21-channel digital EEG recorded with video component, utilizing 10/20 international system with referential and bipolar montages. Background consists of well-developed, moderately well regulated, 8 hertz alpha, seen in posterior head region. Some fast frequency beta was seen in the frontal region. Background seems to be reactive to eye opening and closing. Photic driving response was not seen. Some drowsiness was seen with appearance of bilaterally symmetric theta frequency rhythm. Deeper stages of sleep were not seen. No focal or generalized epileptiform activity was seen. EKG channel showed no arrhythmia. IMPRESSION: This is a normal awake and drowsy EEG. No focal, lateralized or epileptiform activity was seen. MMODL / IJN: [id number] /
[2021-09-15] MEDS: MORPHINE SULFATE 2 MG/ML SYRINGE IVP PRN (20:19)
[2021-09-16] MEDS: SODIUM CHLORIDE 0.9% 1,000 ML IV SCH ×2 (00:50→16:14)
[2021-09-16] MEDS: ACETAMINOPHEN TAB 325 MG TAB PO PRN ×4 (00:59→21:46)
[2021-09-16] MEDS: LEVOTHYROXINE 100 MCG TAB PO SCH (04:55)
[2021-09-16] MEDS: MORPHINE SULFATE 2 MG/ML SYRINGE IVP PRN (05:37)
[2021-09-16] MEDS ORDERED: NON FORMULARY DRUG (Vitamin B Complex [Vitamin B Complex] 1 EACH Capsule) PO SCH (09:00)
[2021-09-16] MEDS: CALCIUM CARBONATE 500 MG CHEWABLE PO SCH (09:09)
[2021-09-16] MEDS: VALSARTAN 80 MG TAB PO SCH (09:10)
[2021-09-16] MEDS: CHOLECALCIFEROL 25 MCG (1000 IU) TABLET PO SCH (09:10)
[2021-09-16] MEDS: TRIAMTERENE-HCTZ 37.5-25MG 1 EACH CAP PO SCH (09:10)
[2021-09-16] MEDS: APIXABAN 5 MG TAB PO SCH ×2 (09:11→20:29)
[2021-09-16] MEDS: PANTOPRAZOLE 40 MG TABLET PO SCH ×2 (09:11→20:29)
[2021-09-16] MEDS: METOPROLOL TARTRATE 25 MG TAB PO SCH ×2 (09:11→20:29)
[2021-09-16] MEDS: ATORVASTATIN 40 MG TAB PO SCH (09:11)
[2021-09-16] MEDS: ZINC SULFATE 220 MG CAP PO SCH (09:11)
--- NOTE | 2021-09-16 09:28 | P.PN ---
Subjective Progress Note Date: 09/16/21 Principal diagnosis: Patient did have an episode of chest pain again this morning 71-year-old female with past medical history of hypertension likely A. fib admitted to the hospital with a syncopal episode patient states that she did have chest pain before. Resolved that stayed for around couple of minutes Currently patient doesn't have any chest pain or shortness of breath Review of systems and systems has been reviewed all negative and positive findings as per history of present illness Constitutional: No acute distress, conversant, pleasant Eyes: Anicteric sclerae, moist conjunctiva, no lid-lag PERRLA ENMT: NC/AT Oropharynx clear, no erythema, exudates Neck: Supple, FROM, no masses, or JVD No carotid bruits No thyromegaly Lungs: Clear to auscultation Clear to percussion Normal respiratory effort, no accessory muscle use Cardiovascular: Heart regular in rate and rhythm, No murmurs, gallops, or rubs No peripheral edema Abdominal: Soft Nontender, no guarding, rebound or rigidity Abdomen moving with respiration Normoactive bowel sounds No hepatomegaly, No splenomegaly No palpable mass No abdominal wall hernia noted Skin: Normal temperature, tone, texture, turgor No induration No subcutaneous nodules No rash, lesions No ulcers Extremities: No digital cyanosis No clubbing Pedal pulses intact and symmetrical Radial pulses intact and symmetrical Normal gait and station No calf tenderness Psychiatric:Alert and oriented to person, place and time Appropriate affect Intact judgement Neuro: Muscles Strength 5/5 in all 4 extremities Sensation to light touch grossly present throughout Cranial nerves II-XII grossly intact No focal sensory deficits Syncopal episode exact etiology not clear we'll consult neurology will check MRI of the brain Chest pain with typical and atypical features patient is to have a cardiac cath in January Cardiology has been consulted Hypertension Since patient again did have chest pain this morning we will continue to monitor will check d-dimer to rule out PE will monitor overnight Objective - Vital Signs Vital signs: Vital Signs Temp 97.8 F 09/16/21 07:00 Pulse 77 09/16/21 09:17 Resp 18 09/16/21 07:00 BP 123/65 09/16/21 07:00 Pulse Ox 98 09/16/21 07:00 Intake & Output 09/15/21 09/16/21 09/16/21 18:59 06:59 18:59 Weight 77.111 kg Other: # Voids 1 1 - Labs CBC & Chem 7: 09/15/21 06:22 09/15/21 06:22
--- NOTE | 2021-09-16 10:06 | P.CRDCN ---
<MicheletracimelissaRaheem fryn - Last Filed: 09/16/21 09:53> History of Present Illness History of present illness: HISTORY OF PRESENTING ILLNESS This is a pleasant 71-year-old female past medical history significant for hypertension, hyperlipidemia, paroxysmal atrial fibrillation on Eliquis, Covid- 19 Infection in May 2021. She follows in the office with Dr. Villalta. We have been asked to see in consultation for chest pain. Patient presents to the emergency department with complaints of episode of chest discomfort yesterday. She states that on 09/15/21 around 4am, she states she woke up to go to the bathroom, while walking to the bathroom she had sudden onset of chest pain. It was located in the center of her chest. She states she went to the bathroom, sat down and had acute onset of lightheadedness, she had increased chest pain and then felt as if she may pass out. She states she leaned back on the toilet, she did hit her head on the wall and states she did fall and bit her tongue. Her helped her on the floor. She states she was aware of the situation she knew what happened and where she was. She was covered in urine on the floor, was unsure if she urinated before or after the episode. She describes the pain in her chest as throbbing when it occurred. It did resolve after about 30 minutes. She denies any shortness of breath, palpitations, nausea, vomiting, diaphoresis. She denies any exertional chest pain at home. She recently underwent cardiac catheterization with Dr. Villalta in 01/2021 which revealed normal coronary arteries. She was found to be in atrial fibrillation and was started on Eliquis. She underwent a Holter monitor and 01/2021 which revealed sinus mechanism. She recently underwent a carotid ultrasound on 09/14/21 in the office that revealed no significant change from prior (report below). She had another episode of this throbbing chest pain this morning at 6:00Am, telemetry reviewed patient in sinus mechanism, no evidence of arrythmia, no a fib or tachycardia. DIAGNOSTICS EKG reveals sinus bradycardia, heart rate 66, no significant ST-T wave abnormalities. Telemetry tracings indicate sinus mechanism HR 60s, with occasional, not frequent PVCs Chest xray No acute cardiopulmonary process Thoracic CT- no aortic aneurysm or dissection. CT cervical spine no acute findings EEG negative for seizure activity MRI of the brain revealed no evidence of infarct. Mild diffuse age-related cerebral atrophy and chronic small vessel ischemic change. Laboratory reviewed, CBC unremarkable, troponin negative 3, sodium 130, potassium 3.3, BUN 20, serum creatinine 1.14, covid negative Cardiac catheterization in 02/03/2021 revealed normal coronary arteries Most recent echocardiogram 01/2021 revealed EF of 55-60%, mild to moderate aortic stenosis, mild aortic regurgitation, mild mitral regurgitation, mild tricuspid regurgitation 09/11/21 Carotid Dopplers in the office revealed 5079% stenosis in the left ICA, 16-49% stenosis in the right ICA. Study unchanged from last exam. Current cardiac medications include valsartan 80 mg daily, Dyazide 30 7. 525 milligrams daily, metoprolol titrate 25 mg twice a day, atorvastatin 40 mg daily, Eliquis 5 mg twice a day REVIEW OF SYSTEMS At the time of my exam: CONSTITUTIONAL: Denies fever or chills. CARDIOVASCULAR: Denies chest pain, shortness of breath, orthopnea, PND or palpitations. RESPIRATORY: Denies cough. GASTROINTESTINAL: Denies abdominal pain, diarrhea, constipation, nausea or vomiting. MUSCULOSKELETAL: Denies myalgias. NEUROLOGIC: Denies numbness, tingling, headacbe or weakness. ENDOCRINE: Denies fatigue, weight change, polydipsia or polyurina. GENITOURINARY: Denies burning, hematuria or urgency with micturation. HEMATOLOGIC: Denies history of anemia or bleeding. PHYSICAL EXAMINATION Vitals reviewed CONSTITUTIONAL: No apparent distress. HEENT: Head is normocephalic. Pupils are equal, round. Sclerae anicteric. Mucous membranes of the mouth are moist. No JVD. No carotid bruit. CHEST EXAMINATION: Lungs are clear to auscultation. No chest wall tenderness is noted on palpation or with deep breathing. HEART EXAMINATION: Regular rate and rhythm. S1, S2 heard. No murmurs, gallops or rub. ABDOMEN: Soft, nontender. Positive bowel sounds. EXTREMITIES: 2+ peripheral pulses, no lower extremity edema and no calf tenderness. NEUROLOGIC EXAMINATION: Patient is awake, alert and oriented x3. ASSESSMENT Chest pain, atypical, acute coronary syndrome has been ruled out Syncope/Near Syncopal episode, unclear etiology. Patient states she bit her tongue and possible incontinence Hypertension Hyperlipidemia Paroxysmal atrial fibrillation, [id number] score recommends anticoagulation, patient on Eliquis Carotid stenosis PLAN An acute coronary event has been ruled out with no EKG evidence of ischemia and negative cardiac enzymes. From a cardiology perspective, chest pain does not appear cardiac in nature, patient possibly going into atrial fibrillation, however, this has not been captured on telemetry. Patient's BP elevated on admission, but now controlled. Neurology has been consulted. No further workup inpatient at this time. Patient to follow up with Dr. Villalta outpatient. Reviewed patient's CMP and lipid panel from 09/14/21, recommend continuing statin We will follow the patient as needed. Please reach out with any further questions or concerns. Nurse Practitioner note has been reviewed, I agree with a documented findings and plan of care. Patient was seen and examined. Past Medical History Past Medical History: Chest Pain / Angina, Fibromyalgia, GERD/Reflux, Hyperlipidemia, Hypertension, Musculoskeletal Disorder, Osteoarthritis (OA), Thyroid Disorder Additional Past Medical History / Comment(s): migraines, IBS, hypothyroid, swollen feet due to lack of veins in legs, ulcers, past hx. 5 lung nodules-never needed tx. for, was monitored, mitral, aortic, tricuspid valve regurge. bulging discs in back, bone spurs, neck problems & decreased ROM, sometimes dysphagia History of Any Multi-Drug Resistant Organisms: None Reported Past Surgical History: Breast Surgery, Cholecystectomy, Hysterectomy, Orthopedic Surgery Additional Past Surgical History / Comment(s): exp. surgery as a kid to see why feet swell findings were lack of veins in legs, left breast cyst removal, exp. laparotomy for "twisted bowel", colonoscopy, achilles tendon repair, EGD w/dilatation's Past Anesthesia/Blood Transfusion Reactions: Previous Problems w/ Anesthesia Additional Past Anesthesia/Blood Transfusion Reaction / Comment(s): told has narrow opening & needs smaller "tube", difficult intubation w/anthony @[facility] Past Psychological History: No Psychological Hx Reported Smoking Status: Never smoker Past Alcohol Use History: None Reported Past Drug Use History: None Reported - Past Family History Mother Family Medical History: Coronary Artery Disease (CAD) Father Family Medical History: Coronary Artery Disease (CAD) Additional Family Medical History / Comment(s): cabg Sister(s) Family Medical History: Cancer Additional Family Medical History / Comment(s): breast cancer twice Son(s) Family Medical History: No Reported History Medications and Allergies Home Medications Medication Instructions Recorded Confirmed Type Calcium Carbonate [Calcium] 1,200 mg PO DAILY 10/22/17 09/15/21 History Levothyroxine Sodium 100 mcg PO DAILY 10/22/17 09/15/21 History Triamterene-Hctz 37.5-25Mg 1 cap PO DAILY 10/22/17 09/15/21 History [Dyazide 37.5-25 Capsule] Atorvastatin [Lipitor] 40 mg PO DAILY 02/02/21 09/15/21 History Cholecalciferol [Vitamin D3 (25 25 mcg PO DAILY 02/02/21 09/15/21 History Mcg = 1000 Iu)] Nortriptyline [Pamelor] 10 - 20 mg PO HS PRN 02/02/21 09/15/21 History Pantoprazole Sodium [Protonix] 40 mg PO BID 02/02/21 09/15/21 History Zinc 50 mg PO DAILY 02/02/21 09/15/21 History Apixaban [Eliquis] 5 mg PO BID #180 tab 02/03/21 09/15/21 Rx Metoprolol Tartrate [Lopressor] 25 mg PO BID #180 tab 02/03/21 09/15/21 Rx Rizatriptan Benzoate [Maxalt] 10 mg PO DAILY PRN 02/03/21 09/15/21 History Ascorbic Acid [Vitamin C] 1,000 mg PO DAILY 09/15/21 09/15/21 History Valsartan 80 mg PO DAILY 09/15/21 09/15/21 History Vitamin B Complex 1 cap PO DAILY 09/15/21 09/15/21 History Allergies Allergy/AdvReac Type Severity Reaction Status Date / Time cefaclor [From Ceclor] Allergy Rash/Hives Verified 09/15/21 09:55 clarithromycin [From Biaxin] AdvReac Nausea Verified 09/15/21 09:55 hydromorphone [From Dilaudid] AdvReac Hallucinati Verified 09/15/21 09:55 ons levofloxacin [From Levaquin] AdvReac Nausea Verified 09/15/21 09:55 methylprednisolone AdvReac Rash/Hives Verified 09/15/21 09:55 [From Medrol] ofloxacin [From Floxin] AdvReac Nausea Verified 09/15/21 09:55 topiramate [From Topamax] AdvReac Nausea Verified 09/15/21 09:55 Physical Exam Vitals: Vital Signs Temp Pulse Resp BP Pulse Ox 09/15/21 05:54 98.4 F 62 16 196/74 100 Intake and Output 09/14/21 09/15/21 09/15/21 22:59 06:59 14:59 Other: Weight 77.111 kg Results 09/15/21 06:22 09/15/21 06:22 Cardiac Enzymes 09/15/21 09/15/21 09/15/21 Range/Units 06:22 06:22 10:13 AST 28 (14-36) U/L Troponin I <0.012 0.020 (0.000-0.034) ng/mL Coagulation 09/15/21 Range/Units 06:22 PT 11.0 (9.0-12.0) sec APTT 22.7 (22.0-30.0) sec CBC 09/15/21 Range/Units 06:22 WBC 8.5 (3.8-10.6) k/uL RBC 4.23 (3.80-5.40) m/uL Hgb 13.5 (11.4-16.0) gm/dL Hct 39.8 (34.0-46.0) % Plt Count 340 (150-450) k/uL Comprehensive Metabolic Panel 09/15/21 Range/Units 06:22 Sodium 130 L (137-145) mmol/L Potassium 3.3 L (3.5-5.1) mmol/L Chloride 99 (98-107) mmol/L Carbon Dioxide 23 (22-30) mmol/L BUN 20 H (7-17) mg/dL Creatinine 1.14 H (0.52-1.04) mg/dL Glucose 123 H (74-99) mg/dL Calcium 9.6 (8.4-10.2) mg/dL AST 28 (14-36) U/L ALT 25 (4-34) U/L Alkaline Phosphatase 123 (38-126) U/L Total Protein 7.5 (6.3-8.2) g/dL Albumin 4.3 (3.5-5.0) g/dL Current Medications Generic Name Dose Route Start Last Admin Trade Name Freq PRN Reason Stop Dose Admin Acetaminophen 650 mg 09/15/21 11:07 Acetaminophen Tab 325 Mg Tab PO Q6HR PRN Mild Pain or Fever > 100.5 Apixaban 5 mg 09/15/21 11:45 Apixaban 5 Mg Tab PO BID [facility] Protocol Atorvastatin Calcium 40 mg 09/15/21 11:45 Atorvastatin 40 Mg Tab PO DAILY [facility] Calcium Carbonate/Glycine 1,000 mg 09/15/21 11:45 Calcium Carbonate 500 Mg Chewable PO DAILY [facility] Cholecalciferol 25 mcg 09/16/21 09:00 Cholecalciferol 25 Mcg (1000 Iu) Tablet PO DAILY [facility] Sodium Chloride 1,000 mls @ 75 mls/hr 09/15/21 11:15 Saline 0.9% IV .[id number] [facility] Levothyroxine Sodium 100 mcg 09/15/21 11:45 Levothyroxine 100 Mcg Tab PO DAILY@0630 [facility] Magnesium Hydroxide 2,400 mg 09/15/21 11:07 Magnesium Hydroxide 2,400 Mg/10 Ml Cup PO DAILY PRN Constipation Metoprolol Tartrate 25 mg 09/15/21 11:45 Metoprolol Tartrate 25 Mg Tab PO BID [facility] Naloxone HCl 0.2 mg 09/15/21 11:07 Naloxone 0.4 Mg/Ml 1 Ml Vial IV Q2M PRN Opioid Reversal Nitroglycerin 0.4 mg 09/15/21 09:46 Nitroglycerin Sl Tabs 0.4 Mg Tab SUBLINGUAL Q5M PRN Chest Pain Nortriptyline HCl 10 mg 09/15/21 11:37 Nortriptyline 10 Mg Cap PO HS PRN Insomnia Ondansetron HCl 4 mg 09/15/21 11:07 Ondansetron 4 Mg/2 Ml Vial IVP Q8HR PRN Nausea And Vomiting Pantoprazole Sodium 40 mg 09/15/21 11:45 Pantoprazole 40 Mg Tablet PO BID [facility] Sumatriptan Succinate 100 mg 09/15/21 11:37 Sumatriptan Succinate 50 Mg Tab PO DAILY PRN Migraine Headache Triamterene/Hydrochlorothiazide 1 each 09/16/21 09:00 Triamterene-Hctz 37.5-25mg 1 Each Cap PO DAILY [facility] Valsartan 80 mg 09/16/21 09:00 Valsartan 80 Mg Tab PO DAILY [facility] Zinc Sulfate 220 mg 09/16/21 09:00 Zinc Sulfate 220 Mg Cap PO DAILY [facility] Intake and Output 09/14/21 09/15/21 09/15/21 22:59 06:59 14:59 Other: Weight 77.111 kg 09/15/21 06:22 09/15/21 06:22 <Malcolm Monte - Last Filed: 09/16/21 13:08> Physical Exam Vitals: Vital Signs Temp Pulse Pulse Pulse Resp BP BP 09/16/21 09:17 77 09/16/21 07:00 97.8 F 67 18 123/65 09/16/21 00:56 98.4 F 74 18 125/60 09/15/21 19:25 98.1 F 72 17 130/57 09/15/21 13:25 98.8 F 89 20 137/67 Pulse Ox 09/16/21 09:17 09/16/21 07:00 98 09/16/21 00:56 98 09/15/21 19:25 99 09/15/21 13:25 100 Intake and Output 09/15/21 09/16/21 09/16/21 22:59 06:59 14:59 Other: # Voids 1 1 2 Weight 77.111 kg Results 09/16/21 06:41 09/16/21 10:49 Cardiac Enzymes 09/15/21 Range/Units 14:05 Troponin I 0.017 (0.000-0.034) ng/mL CBC 09/16/21 Range/Units 06:41 WBC 8.45 (4.50-10.00) X 10*3/uL RBC 3.89 L (4.10-5.20) X 10*6/uL Hgb 12.3 (12.0-15.0) g/dL Hct 37.7 (37.2-46.3) % Plt Count 243 (140-440) X 10*3/uL Comprehensive Metabolic Panel 09/16/21 Range/Units 10:49 BUN 15 (7-17) mg/dL Creatinine 0.97 (0.52-1.04) mg/dL Current Medications Generic Name Dose Route Start Last Admin Trade Name Freq PRN Reason Stop Dose Admin Acetaminophen 650 mg 09/15/21 11:07 09/16/21 09:22 Acetaminophen Tab 325 Mg Tab PO 650 mg Q6HR PRN Administration Mild Pain or Fever > 100.5 Apixaban 5 mg 09/15/21 11:45 09/16/21 09:11 Apixaban 5 Mg Tab PO 5 mg BID JOSE A Administration Protocol Atorvastatin Calcium 40 mg 09/15/21 11:45 09/16/21 09:11 Atorvastatin 40 Mg Tab PO 40 mg DAILY JOSE A Administration Calcium Carbonate/Glycine 1,000 mg 09/15/21 11:45 09/16/21 09:09 Calcium Carbonate 500 Mg Chewable PO 1,000 mg DAILY JOSE A Administration Cholecalciferol 25 mcg 09/16/21 09:00 09/16/21 09:10 Cholecalciferol 25 Mcg (1000 Iu) Tablet PO 25 mcg DAILY JOSE A Administration Sodium Chloride 1,000 mls @ 75 mls/hr 09/15/21 11:15 09/16/21 00:50 Saline 0.9% IV 75 mls/hr .[id number] JOSE A Administration Levothyroxine Sodium 100 mcg 09/15/21 11:45 09/16/21 04:55 Levothyroxine 100 Mcg Tab PO 100 mcg DAILY@0630 JOSE A Administration Magnesium Hydroxide 2,400 mg 09/15/21 11:07 09/16/21 09:47 Magnesium Hydroxide 2,400 Mg/10 Ml Cup PO 2,400 mg DAILY PRN Administration Constipation Metoprolol Tartrate 25 mg 09/15/21 11:45 09/16/21 09:11 Metoprolol Tartrate 25 Mg Tab PO 25 mg BID JOSE A Administration Morphine Sulfate 2 mg 09/15/21 18:24 09/16/21 05:37 Morphine Sulfate 2 Mg/Ml Syringe IVP 2 mg Q4HR PRN Administration Pain/Discomfort Naloxone HCl 0.2 mg 09/15/21 11:07 Naloxone 0.4 Mg/Ml 1 Ml Vial IV Q2M PRN Opioid Reversal Nitroglycerin 0.4 mg 09/15/21 09:46 Nitroglycerin Sl Tabs 0.4 Mg Tab SUBLINGUAL Q5M PRN Chest Pain Nortriptyline HCl 10 mg 09/15/21 11:37 Nortriptyline 10 Mg Cap PO HS PRN Insomnia Ondansetron HCl 4 mg 09/15/21 11:07 Ondansetron 4 Mg/2 Ml Vial IVP Q8HR PRN Nausea And Vomiting Pantoprazole Sodium 40 mg 09/15/21 11:45 09/16/21 09:11 Pantoprazole 40 Mg Tablet PO 40 mg BID JOSE A Administration Sumatriptan Succinate 100 mg 09/15/21 11:37 Sumatriptan Succinate 50 Mg Tab PO DAILY PRN Migraine Headache Triamterene/Hydrochlorothiazide 1 each 09/16/21 09:00 09/16/21 09:10 Triamterene-Hctz 37.5-25mg 1 Each Cap PO 1 each DAILY JOSE A Administration Valsartan 80 mg 09/16/21 09:00 09/16/21 09:10 Valsartan 80 Mg Tab PO 80 mg DAILY JOSE A Administration Zinc Sulfate 220 mg 09/16/21 09:00 09/16/21 09:11 Zinc Sulfate 220 Mg Cap PO 220 mg DAILY JOSE A Administration Intake and Output 09/15/21 09/16/21 09/16/21 22:59 06:59 14:59 Other: # Voids 1 1 2 Weight 77.111 kg 09/16/21 06:41 09/16/21 10:49
[2021-09-16 11:47] LABS: Basophils # (A) 0.03 X 10*3/uL (0.00-0.10); Basophils % (A) 0.4 %; Eosinophils # (A) 0.03 X 10*3/uL (0.04-0.35); Eosinophils % (A) 0.4 %; HCT 37.7 % (37.2-46.3); HGB 12.3 g/dL (12.0-15.0); Lymphocytes # (A) 0.92 X 10*3/uL (0.90-5.00); Lymphocytes % (A) 10.9 %; MCH 31.6 pg (27.0-32.0); MCHC 32.6 g/dL (32.0-37.0); MCV 96.9 fL (80.0-97.0); Mean Platelet Volume 10.1 fL (9.5-12.2); Monocytes # (A) 0.87 X 10*3/uL (0.20-1.00); Monocytes % (A) 10.3 %; Neutrophils # (A) 6.54 X 10*3/uL (1.80-7.70); Neutrophils % (A) 77.3 %; Platelet Count 243 X 10*3/uL (140-440); RBC 3.89 X 10*6/uL (4.10-5.20); RDW 11.9 % (11.5-14.5); WBC 8.45 X 10*3/uL (4.50-10.00)
--- NOTE | 2021-09-16 14:59 | CT ---
EXAMINATION TYPE: CT chest angio for PE DATE OF EXAM: 09/16/2021 COMPARISON: Radiograph 09/15/2021 HISTORY: 71-year-old female Chest pain and elevated d-dimer. TECHNIQUE: Contiguous axial scanning of the chest performed with IV Contrast, patient injected with 6 2ml mL of Isovue 370. Coronal/sagittal MIP reconstructions performed. CT DLP: 553 mGycm Automated exposure control for dose reduction was used. FINDINGS: Heart normal size without pericardial effusion. No flattening of the intraventricular septum or reflu x of contrast into the hepatic veins. Mild aortic valvular calcifications. Mildly ectatic ascending aorta at 3.6 cm. Conventional vessel br anching anatomy with mild atherosclerotic plaque and calcification. Satisfactory opacification of the pulmonary arterial system without evidence for pulmonary embolus. No thoracic lymphadenopathy by CT size criteria. Minimal strandy atelectasis in the inferior lingula. Mild diffuse bronchial wall thickening. Minimal biapical pleural-parenchymal scarring.. Tiny 3 mm left upper lobe pulmonary nodule, axial images 31 of questionable clinical significance. 3 mm left lower lobe pulmonary nodule, axial image 77. 4 mm left lower lobe pulmonary nodule posteriorly, axial image 103. 3 mm subpleural pulmonary nodule left lower lobe, axial image 92. 4 mm subpleural pulmonary nodule peripheral right lower lobe, axial image 92. 4 mm pulmonary nodule anterior right lower lung, axial image 88. Visualized upper abdomen shows mild thickening of the left adrenal gland without discrete nodularity. Bones: Mild degenerative disc disease with moderate anterior endplate spondylosis mid to lower thorac ic spine. IMPRESSION: 1. NO EVIDENCE FOR PULMONARY EMBOLUS. 2. MILD AORTIC VALVULAR CALCIFICATIONS. 3. MILD DIFFUSE BRONCHIAL WALL THICKENING COULD REFLECT BRONCHITIS OR CHRONIC ASTHMA. 4. A FEW SCATTERED 4 MM AND SMALLER PULMONARY NODULES. 6 MONTH FOLLOW-UP CT CHEST TO REASSESS.
--- NOTE | 2021-09-16 17:12 | P.PN ---
Subjective Progress Note Date: 09/16/21 Patient was seen for a follow-up. Patient is feeling better. Patient states is 3 months ago she suffered from Covid-19. Patient is concerned if she is having POTS syndrome. Patient's telemetry monitoring showing sinus rhythm. Denies any focal symptoms. Objective - Vital Signs Vital signs: Vital Signs Temp 98.1 F 09/16/21 15:00 Pulse 62 09/16/21 15:00 Resp 18 09/16/21 15:00 BP 100/61 09/16/21 15:00 Pulse Ox 98 09/16/21 15:00 Intake & Output 09/15/21 09/16/21 09/16/21 18:59 06:59 18:59 Intake Total 520 Balance 520 Weight 77.111 kg Intake: Oral 520 Other: # Voids 1 1 1 - Exam Mental status, speech and language functions cranial nerves are normal. Muscle strength normal. - Labs CBC & Chem 7: 09/16/21 06:41 09/16/21 10:49 Labs: Abnormal Lab Results - Last 24 Hours (Table) 09/16/21 Range/Units 06:41 RBC 3.89 L (4.10-5.20) X 10*6/uL Immature Gran # 0.06 H (0.00-0.04) X 10*3/uL Eosinophils # 0.03 L (0.04-0.35) X 10*3/uL Assessment and Plan Assessment: * Syncope versus seizure. Patient did bit her tongue, and perhaps lost control of urine with this spell. Patient however did not have any postictal state, therefore seizure appears less likely. Arrhythmia also in the differential. * Acute chest pain prior to the syncopal event, therefore cardiac cause likely the possibility * Paroxysmal Atrial fibrillation on long-term anticoagulation with Eliquis Plan: * MRI of the brain without contrast showed no acute process. Mild diffuse age- related cerebral atrophy and chronic small vessel ischemic change, particularly in the subcortical frontal region bilaterally. I personally reviewed MRI on the computer. * EEG was performed, which was normal awake and drowsy EEG. No epileptiform activity was seen. No indication for AED. * Cardiology following for chest pain, rule out arrhythmia. Telemetry monitoring so far showing sinus rhythm. Consider placement of event monitor. * Suggest tilt table test to evaluate for recurrent syncopal spell. * Patient is undergoing CT of the chest. * Regarding driving privileges, would defer to IM/cardiology. Usual restrictions for "seizure" was discussed with the patient.
[2021-09-16 17:41] LABS: Chol/HDL Ratio 3.13 Ratio; LDL Cholesterol,Calculated 106.7 mg/dL (0.0-131.0); VLDL Calculation 18.46 mg/dL (5.00-40.00)
[2021-09-16 17:58] LABS: ALT 73 U/L (8-44); AST 79 U/L (13-35); African American GFR (CKD) 50.6 (60.0-200.0); Albumin 3.9 g/dL (3.8-4.9); Albumin/Globulin Ratio 1.78 (1.60-3.17); Alkaline Phosphatase 131 U/L (41-126); BUN/Creat Ratio 11.37 Ratio (12.00-20.00); Blood Urea Nitrogen 14.1 mg/dL (9.0-27.0); Calcium 9.1 mg/dL (8.7-10.3); Carbon Dioxide 16.6 mmol/L (20.0-27.5); Chloride 102 mmol/L (96-109); Globulin 2.2 g/dL (1.6-3.3); Glucose 115 mg/dL (70-110); Non-African American GFR(CKD) 43.7 (60.0-200.0); Potassium 4.7 mmol/L (3.5-5.5); Sodium 135 mmol/L (135-145); Total Protein 6.1 g/dL (6.2-8.2)
[2021-09-17] MEDS: SODIUM CHLORIDE 0.9% 1,000 ML IV SCH (04:30)
[2021-09-17 04:32] VITALS: RESP 16
[2021-09-17] MEDS: ACETAMINOPHEN TAB 325 MG TAB PO PRN (05:08)
[2021-09-17] MEDS: LEVOTHYROXINE 100 MCG TAB PO SCH (05:18)
[2021-09-17 07:39] LABS: Basophils % (A) 0 %; Eosinophils # (A) 0.1 k/uL (0-0.7); Eosinophils % (A) 2 %; HCT 37.9 % (34.0-46.0); HGB 12.2 gm/dL (11.4-16.0); Lymphocytes # (A) 0.8 k/uL (1.0-4.8); Lymphocytes % (A) 12 %; MCH 31.3 pg (25.0-35.0); MCHC 32.3 g/dL (31.0-37.0); MCV 97.1 fL (80.0-100.0); Mean Platelet Volume 7.9; Monocytes # (A) 0.4 k/uL (0-1.0); Monocytes % (A) 7 %; Neutrophils # (A) 5.3 k/uL (1.3-7.7); Neutrophils % (A) 78 %; Platelet Count 293 k/uL (150-450); RBC 3.91 m/uL (3.80-5.40); RDW 12.3 % (11.5-15.5); WBC 6.8 k/uL (3.8-10.6)
[2021-09-17 07:50] LABS: ALT 159 U/L (4-34); AST 132 U/L (14-36); African American GFR (CKD) 65 (>60 ml/min/1.73 sqM); Albumin 3.6 g/dL (3.5-5.0); Albumin/Globulin Ratio 1.2; Alkaline Phosphatase 142 U/L (38-126); Anion Gap 4 mmol/L; Blood Urea Nitrogen 19 mg/dL (7-17); Carbon Dioxide 22 mmol/L (22-30); Chloride 105 mmol/L (98-107); Globulin 2.9 g/dL; Glucose 118 mg/dL (74-99); Non-African American GFR(CKD) 56 (>60 ml/min/1.73 sqM); Potassium 4.6 mmol/L (3.5-5.1); Sodium 131 mmol/L (137-145); Total Bilirubin 0.8 mg/dL (0.2-1.3); Total Protein 6.5 g/dL (6.3-8.2)
[2021-09-17 08:08] VITALS: BP 138/82; TEMP 98.1
--- NOTE | 2021-09-17 08:35 | P.DS ---
Providers Date of admission: 09/15/21 10:06 Expected date of discharge: 09/17/21 Attending physician: Rubio Mcdonald MD Consults: 09/15/21 09:46 Consult Physician Routine Consulting Provider: [facility] Consult Reason/Comments: chest pain, syncope Do you want consulting provider notified?: Yes 09/15/21 11:42 Consult Physician Routine Consulting Provider: Emilio Barillas Consult Reason/Comments: syncope Do you want consulting provider notified?: Yes Primary care physician: Charles Shahid MD Hospital Course: 71-year-old female admitted to the hospital with a syncopal episode and chest pain no evidence of acute coronary syndrome no evidence of PE no evidence of acute CVA patient has been evaluated by neurology and cardiology was cleared by cardiology to be discharged follow-up with primary care physician EEG did not show any active seizures Constitutional: No acute distress, conversant, pleasant Eyes: Anicteric sclerae, moist conjunctiva, no lid-lag PERRLA ENMT: NC/AT Oropharynx clear, no erythema, exudates Neck: Supple, FROM, no masses, or JVD No carotid bruits No thyromegaly Lungs: Clear to auscultation Clear to percussion Normal respiratory effort, no accessory muscle use Cardiovascular: Heart regular in rate and rhythm, No murmurs, gallops, or rubs No peripheral edema Abdominal: Soft Nontender, no guarding, rebound or rigidity Abdomen moving with respiration Normoactive bowel sounds No hepatomegaly, No splenomegaly No palpable mass No abdominal wall hernia noted Skin: Normal temperature, tone, texture, turgor No induration No subcutaneous nodules No rash, lesions No ulcers Extremities: No digital cyanosis No clubbing Pedal pulses intact and symmetrical Radial pulses intact and symmetrical Normal gait and station No calf tenderness Psychiatric:Alert and oriented to person, place and time Appropriate affect Intact judgement Neuro: Muscles Strength 5/5 in all 4 extremities Sensation to light touch grossly present throughout Cranial nerves II-XII grossly intact No focal sensory deficits Discharge plan Syncopal episode exact etiology not clear patient to follow-up with primary care physician as an outpatient and also follow-up with cardiology and neurology Neck pain after the fall and syncope patient has been prescribed [place] Plan - Discharge Summary Discharge Rx Participant: No New Discharge Prescriptions: Continue Calcium Carbonate [Calcium] 1,200 mg PO DAILY Levothyroxine Sodium 100 mcg PO DAILY Triamterene-Hctz 37.5-25Mg [Dyazide 37.5-25 Capsule] 1 cap PO DAILY Nortriptyline [Pamelor] 10 - 20 mg PO HS PRN PRN Reason: Insomnia Metoprolol Tartrate [Lopressor] 25 mg PO BID #180 tab Vitamin B Complex 1 cap PO DAILY Ascorbic Acid [Vitamin C] 1,000 mg PO DAILY Valsartan 80 mg PO DAILY Cholecalciferol [Vitamin D3 (25 Mcg = 1000 Iu)] 25 mcg PO DAILY Atorvastatin [Lipitor] 40 mg PO DAILY Zinc 50 mg PO DAILY Pantoprazole Sodium [Protonix] 40 mg PO BID Rizatriptan Benzoate [Maxalt] 10 mg PO DAILY PRN PRN Reason: Migraine Headache Apixaban [Eliquis] 5 mg PO BID #180 tab Discharge Medication List Calcium Carbonate [Calcium] 1,200 mg PO DAILY 10/22/17 [History] Levothyroxine Sodium 100 mcg PO DAILY 10/22/17 [History] Triamterene-Hctz 37.5-25Mg [Dyazide 37.5-25 Capsule] 1 cap PO DAILY 10/22/17 [History] Atorvastatin [Lipitor] 40 mg PO DAILY 02/02/21 [History] Cholecalciferol [Vitamin D3 (25 Mcg = 1000 Iu)] 25 mcg PO DAILY 02/02/21 [History] Nortriptyline [Pamelor] 10 - 20 mg PO HS PRN 02/02/21 [History] Pantoprazole Sodium [Protonix] 40 mg PO BID 02/02/21 [History] Zinc 50 mg PO DAILY 02/02/21 [History] Apixaban [Eliquis] 5 mg PO BID #180 tab 02/03/21 [Rx] Metoprolol Tartrate [Lopressor] 25 mg PO BID #180 tab 02/03/21 [Rx] Rizatriptan Benzoate [Maxalt] 10 mg PO DAILY PRN 02/03/21 [History] Ascorbic Acid [Vitamin C] 1,000 mg PO DAILY 09/15/21 [History] Valsartan 80 mg PO DAILY 09/15/21 [History] Vitamin B Complex 1 cap PO DAILY 09/15/21 [History] Follow up Appointment(s)/Referral(s): Juan J Villalta MD [STAFF PHYSICIAN] - 2 Weeks Charles Shahid MD [Primary Care Provider] - 1-2 days Discharge Disposition: HOME SELF-CARE
[2021-09-17 09:39] VITALS: PULSE 72
[2021-09-17] MEDS: CHOLECALCIFEROL 25 MCG (1000 IU) TABLET PO SCH (09:41)
[2021-09-17] MEDS: CALCIUM CARBONATE 500 MG CHEWABLE PO SCH (09:41)
[2021-09-17] MEDS: VALSARTAN 80 MG TAB PO SCH (09:41)
[2021-09-17] MEDS: TRIAMTERENE-HCTZ 37.5-25MG 1 EACH CAP PO SCH (09:41)
[2021-09-17] MEDS: ATORVASTATIN 40 MG TAB PO SCH (09:41)
[2021-09-17] MEDS: METOPROLOL TARTRATE 25 MG TAB PO SCH (09:42)
[2021-09-17] MEDS: PANTOPRAZOLE 40 MG TABLET PO SCH (09:42)
[2021-09-17] MEDS: ZINC SULFATE 220 MG CAP PO SCH (09:42)
[2021-09-17] MEDS: APIXABAN 5 MG TAB PO SCH (09:43)
--- NOTE | 2021-09-18 10:51 | P.PN ---
Subjective Progress Note Date: 09/17/21 Patient was seen for a follow-up. Patient is feeling better. Patient is being discharged. Patient suffered from Covid-19 about 3 months ago. Patient is concerned if she is having POTS syndrome. Patient's telemetry monitoring showing sinus rhythm. Denies any focal symptoms. Objective - Vital Signs Vital signs: Vital Signs Temp 98.1 F 09/17/21 08:07 Pulse 72 09/17/21 09:39 Resp 16 09/17/21 08:07 BP 138/82 09/17/21 08:07 Pulse Ox 97 09/17/21 08:07 Intake & Output 09/17/21 09/18/21 09/18/21 18:59 06:59 18:59 Other: # Voids 1 - Exam Mental status, speech and language functions cranial nerves are normal. Muscle strength normal. - Labs CBC & Chem 7: 09/17/21 07:06 09/17/21 07:06 Assessment and Plan Assessment: * Syncope versus seizure. Patient did bit her tongue, and perhaps lost control of urine with this spell. Patient however did not have any postictal state, therefore seizure appears less likely. Arrhythmia also in the differential. * Acute chest pain prior to the syncopal event, therefore cardiac cause likely the possibility * Paroxysmal Atrial fibrillation on long-term anticoagulation with Eliquis Plan: * MRI of the brain without contrast showed no acute process. Mild diffuse age- related cerebral atrophy and chronic small vessel ischemic change, particularly in the subcortical frontal region bilaterally. I personally reviewed MRI on the computer. * EEG was performed, which was normal awake and drowsy EEG. No epileptiform activity was seen. No indication for AED. * Cardiology following for chest pain, rule out arrhythmia. Telemetry monitoring so far showing sinus rhythm. Consider placement of event monitor. * Patient follows up with Dr. Cordero. Patient was recommended to follow up with neurologist to consider tilt table test as an outpatient. * Patient seen by cardiology, input appreciated. Cardiology feels that syncope was situational related to chest pain, and tilt table test not indicated. Agreed for 30 days event monitor. * CTA of the chest showed no evidence of pulmonary embolism. Mild aortic valvular calcification. Mild diffuse bronchial wall thickening could reflect bronchitis or chronic asthma. A few scattered 4 mm and smaller pulmonary nodules. 6 month follow-up CT chest to reassess. * Regarding driving privileges, would defer to IM/cardiology. * Neurologically clear.
== END 2021-09-17 11:50 | disposition home or self-care (01) ==
LOC: EC 05:38 → 6NMEDSUR 10:06
PROVIDERS: ADMIT Internal Medicine; ATTEND Internal Medicine
DX: R55 Syncope and collapse (principal); R07.89 Other chest pain; R07.2 Precordial pain; M54.2 Cervicalgia; I10 Essential (primary) hypertension; S00.83XA Contusion of other part of head, initial encounter; S01.552A Open bite of oral cavity, initial encounter; Z20.822 Contact with and (suspected) exposure to COVID-19; I65.23 Occlusion and stenosis of bilateral carotid arteries; I48.0 Paroxysmal atrial fibrillation; E03.9 Hypothyroidism, unspecified; R91.1 Solitary pulmonary nodule; I08.3 Combined rheumatic disorders of mitral, aortic and tricuspid valves; K21.9 Gastro-esophageal reflux disease without esophagitis; M79.7 Fibromyalgia; E78.5 Hyperlipidemia, unspecified; M47.814 Spondylosis without myelopathy or radiculopathy, thoracic region; M51.9 Unspecified thoracic, thoracolumbar and lumbosacral intervertebral disc disorder; K58.9 Irritable bowel syndrome, unspecified; M51.37 Other intervertebral disc degeneration, lumbosacral region; M19.90 Unspecified osteoarthritis, unspecified site; M25.70 Osteophyte, unspecified joint; Z88.5 Allergy status to narcotic agent; Z88.1 Allergy status to other antibiotic agents; Z88.8 Allergy status to other drugs, medicaments and biological substances; Z86.16 Personal history of COVID-19; Z86.69 Personal history of other diseases of the nervous system and sense organs; E86.0 Dehydration; W18.11XA Fall from or off toilet without subsequent striking against object, initial encounter; Z79.01 Long term (current) use of anticoagulants; Z79.890 Hormone replacement therapy; Z79.899 Other long term (current) drug therapy; Z90.710 Acquired absence of both cervix and uterus; Z86.711 Personal history of pulmonary embolism; Z90.49 Acquired absence of other specified parts of digestive tract; Z82.49 Family history of ischemic heart disease and other diseases of the circulatory system; Z80.3 Family history of malignant neoplasm of breast
CPT/HCPCS: 99285; 96376 ×2; 96361 ×3; 96374; 36415; 95816; 93005; 85379 ×2; 80061; 80053 ×3; 82565; 83690; 84520; 84484; 85025 ×3; 85610; 85730; 81003; 87635; 71046; 72125; 70450; 71275 ×2; 74174; 70551; G0378 ×3; J2270 ×3; Q9967 ×2

== ENCOUNTER → 2021-10-29 | Outpatient (CLI) | payer MEDICARE ==
[2021-10-29 18:13] LABS: Basophils # (A) 0.07 X 10*3/uL (0.00-0.10); Basophils % (A) 1.4 %; Eosinophils # (A) 0.12 X 10*3/uL (0.04-0.35); Eosinophils % (A) 2.4 %; HCT 34.7 % (37.2-46.3); HGB 11.5 g/dL (12.0-15.0); Immature Grans, Automated 0.6 %; Lymphocytes # (A) 0.99 X 10*3/uL (0.90-5.00); Lymphocytes % (A) 19.4 %; MCH 32.1 pg (27.0-32.0); MCHC 33.1 g/dL (32.0-37.0); MCV 96.9 fL (80.0-97.0); Mean Platelet Volume 10.5 fL (9.5-12.2); Monocytes # (A) 0.61 X 10*3/uL (0.20-1.00); NRBC Per 100 WBC 0 /100 WBCS (0.0-0.0); Neutrophils # (A) 3.27 X 10*3/uL (1.80-7.70); Neutrophils % (A) 64.2 %; Platelet Count 314 X 10*3/uL (140-440); RBC 3.58 X 10*6/uL (4.10-5.20); RDW 13.5 % (11.5-14.5); WBC 5.09 X 10*3/uL (4.50-10.00)
[2021-10-29 18:46] LABS: Ceruloplasmin 29.6 mg/dL (20.0-60.0)
[2021-10-29 18:59] LABS: % Iron Saturation 20.28 (12.00-45.00); African American GFR (CKD) 58.5 (60.0-200.0); Albumin 4.3 g/dL (3.8-4.9); Albumin/Globulin Ratio 1.72 (1.60-3.17); Anion Gap 16.3 mmol/L (10.00-18.00); BUN/Creat Ratio 12.73 Ratio (12.00-20.00); Calcium 9.7 mg/dL (8.7-10.3); Carbon Dioxide 19.7 mmol/L (20.0-27.5); Globulin 2.5 g/dL (1.6-3.3); Non-African American GFR(CKD) 50.5 (60.0-200.0); Potassium 4.5 mmol/L (3.5-5.5); Total Bilirubin 0.6 mg/dL (0.30-1.20); Total Protein 6.8 g/dL (6.2-8.2)
[2021-10-29 22:39] LABS: Protein, Total 6.7 g/dL (6.2-8.2)
[2021-11-01 11:48] LABS: Albumin 3.79 g/dL (3.80-4.90); Gamma Globulin 0.96 g/dL (0.70-1.50)
== END | disposition home or self-care (01) ==
LOC: LABWHC1 11:41
PROVIDERS: ATTEND Internal Medicine Gastroenterology
DX: R74.8 Abnormal levels of other serum enzymes (principal)
CPT/HCPCS: 36415; 80053; 82103; 82390; 82728; 83516; 83540; 83550; 84165; 85025; 86038

== ENCOUNTER → 2021-11-29 | Outpatient (CLI) | payer MEDICARE ==
[2021-11-29 13:57] LABS: ALT 38 U/L (4-34); AST 37 U/L (14-36); African American GFR (CKD) 67 (>60 ml/min/1.73 sqM); Albumin 3.5 g/dL (3.5-5.0); Albumin/Globulin Ratio 1.2; Alkaline Phosphatase 198 U/L (38-126); Anion Gap 11 mmol/L; Blood Urea Nitrogen 14 mg/dL (7-17); Calcium 8.9 mg/dL (8.4-10.2); Carbon Dioxide 23 mmol/L (22-30); Chloride 95 mmol/L (98-107); Glucose 127 mg/dL (74-99); Non-African American GFR(CKD) 58 (>60 ml/min/1.73 sqM); Potassium 3.9 mmol/L (3.5-5.1); Sodium 129 mmol/L (137-145); Total Bilirubin 0.7 mg/dL (0.2-1.3); Total Protein 6.5 g/dL (6.3-8.2)
== END | disposition home or self-care (01) ==
LOC: LABWHC1 10:55
PROVIDERS: ATTEND Family Medicine
DX: E87.1 Hypo-osmolality and hyponatremia (principal)
CPT/HCPCS: 36415; 80053

== ENCOUNTER 2021-11-30 12:28 | Inpatient (IN) | payer MEDICARE ==
[2021-11-24 15:42] LABS: Partial Thromboplastin Time 22.9 sec (22.0-30.0); Prothrombin Time 11.1 sec (9.0-12.0)
[2021-11-24 22:44] LABS: HCT 35.2 % (37.2-46.3); HGB 11.6 g/dL (12.0-15.0); MCH 32.1 pg (27.0-32.0); MCV 97.5 fL (80.0-97.0); Mean Platelet Volume 10.9 fL (9.5-12.2); NRBC Per 100 WBC 0 /100 WBCS (0.0-0.0); Platelet Count 254 X 10*3/uL (140-440); RBC 3.61 X 10*6/uL (4.10-5.20); RDW 13.6 % (11.5-14.5)
[2021-11-24 23:34] LABS: Appearance,Urine Clear (Clear); Bacteria,Urine None Seen /HPF (None Seen); Bilirubin,Urine Negative (Negative); Blood,Urine Negative (Negative); Color,Urine Yellow (Yellow); Ketones,Urine Negative (Negative); Nitrite,Urine Negative (Negative); PH, Urine 8.5 (5.0-8.0); Specific Gravity,Urine 1.011 (1.001-1.030); Urobilinogen,Urine 0.2 (0.2,1.0)
[2021-11-24 23:37] LABS: African American GFR (CKD) 59.2 (60.0-200.0); Albumin 3.9 g/dL (3.8-4.9); Albumin/Globulin Ratio 1.6 (1.60-3.17); Anion Gap 13.9 mmol/L (10.00-18.00); BUN/Creat Ratio 13.49 Ratio (12.00-20.00); Blood Urea Nitrogen 14.7 mg/dL (9.0-27.0); Calcium 9.3 mg/dL (8.7-10.3); Carbon Dioxide 20.5 mmol/L (20.0-27.5); Globulin 2.5 g/dL (1.6-3.3); Potassium 4.4 mmol/L (3.5-5.5); Total Bilirubin 0.5 mg/dL (0.30-1.20); Total Protein 6.4 g/dL (6.2-8.2)
[2021-11-29 08:26] VITALS: BMI 30.7
[~2021-11-30 12:28] MED LIST changes: +ACETAMINOPHEN TAB 500 MG TAB PO PRN; -ALPRAZolam 0.25 MG TAB PO PRN; -ALPRAZolam 0.5 MG TAB PO PRN; -ASPIRIN 325 MG TAB PO STA; -ATORVASTATIN 80 MG TAB PO STA; +GABAPENTIN 300 MG CAP PO PRN; -HEPARIN SODIUM,PORCINE 10,000 UNIT in SODIUM CHLORIDE 0.9% 1,000 ML IRRIGATION PRN; -HEPARIN SODIUM,PORCINE 2,500 UNIT in SODIUM CHLORIDE 0.9% 250 ML IRRIGATION PRN; +MELOXICAM 7.5 MG TAB PO PRN; -NITROGLYCERIN SL TABS 0.4 MG TAB SUBLINGUAL PRN; -SODIUM CHLORIDE 0.9% 1,000 ML in EMPTY BAG 1 BAG IV ONE; +TRANEXAMIC ACID IN NACL,ISO-OS 1,000 MG in SALINE 1 100ML.BAG IVPB PRN; +VANCOMYCIN 1,250 MG in SODIUM CHLORIDE 0.9% 250 ML IVPB PRN
[2021-11-30] MEDS ORDERED: ONDANSETRON 4 MG/2 ML VIAL IVP STA (12:44)
[2021-11-30] MEDS ORDERED: ONDANSETRON 4 MG/2 ML VIAL ONE (12:45)
[2021-11-30] MEDS ORDERED: ONDANSETRON 4 MG/2 ML VIAL IVP PRN (12:48)
[2021-11-30] MEDS ORDERED: NALOXONE 0.4 MG/ML 1 ML VIAL IV PRN (12:48)
[2021-11-30] MEDS ORDERED: HYDROmorphone 0.2 MG/1 ML SYRINGE IVP PRN (12:48)
[2021-11-30] MEDS ORDERED: MAGNESIUM HYDROXIDE 2,400 MG/10 ML CUP PO PRN (12:48)
[2021-11-30] MEDS ORDERED: HYDROmorphone 0.5 MG/0.5 ML SYRINGE IVP PRN ×2 (12:48)
[2021-11-30] MEDS ORDERED: HYDROcodone/APAP 7.5-325MG 1 EACH TAB PO PRN (12:50)
[2021-11-30] MEDS ORDERED: VANCOMYCIN IV PER PHARMACY 1 EACH MISC MISCELLANE PRN (12:54)
[2021-11-30] MEDS ORDERED: ROPIVACAINE 5 MG/ML 30 ML VIAL MISCELLANE ONE ×3 (12:56→14:32)
[2021-11-30] MEDS ORDERED: LACTATED RINGERS 1,000 ML IV ONE (13:23)
[2021-11-30] MEDS ORDERED: LIDOCAINE 1% INJ 10MG/ML (20 ML MDV) ONE (13:32)
[2021-11-30] MEDS ORDERED: MIDAZOLAM 2 MG/2 ML VIAL IVP ONE (13:32)
[2021-11-30] MEDS ORDERED: fentaNYL (PF) 50 MCG/ML 2 ML AMP ONE (13:32)
[2021-11-30] MEDS ORDERED: SUCCINYLCHOLINE CHLORIDE 100 MG/5 ML SYR IV ONE (13:32)
[2021-11-30] MEDS ORDERED: TRANEXAMIC ACID IN NACL,ISO-OS 1,000 MG/100 ML BAG ONE (13:32)
[2021-11-30] MEDS ORDERED: PROPOFOL 10 MG/ML 20 ML VIAL IV ONE (13:32)
[2021-11-30] MEDS ORDERED: HYDROmorphone (PF) 1 MG/ML ONE (13:32)
[2021-11-30] MEDS ORDERED: MIDAZOLAM 2 MG/2 ML VIAL ONE (13:32)
--- NOTE | 2021-11-30 14:44 | P.OP ---
Date of Procedure: 11/30/21 Preoperative Diagnosis: Severe osteoarthritis right hip Postoperative Diagnosis: Severe osteoarthritis right hip Procedure(s) Performed: Right total hip arthroplasty with a direct anterior approach Implants: [employer]hew Polarstem standard size 2 [employer]hew R3, 3 hole hemispherical acetabular shell, 48 mm [employer] Reflection 6.5 mm cancellus screw, 20 mm 2 [employer] R3, XLPE 20 acetabular liner [employer]hew Oxinium femoral head 32 mm, -3 All components were press-fit. The articulation is Oxinium on polyethylene. Anesthesia: GETA Surgeon: Meliton Gonzalez Zoo Caretaker #1: Kaila Suárez Estimated Blood Loss (ml): 250 Pathology: other (Femoral head) Condition: stable Disposition: PACU Indications for Procedure: After failure of conservative treatment we discussed the surgical and nonsurgica l treatment options at length. Patient wishes to proceed with a total hip arthroplasty with a direct anterior approach. Complications specific to this procedure were discussed at length, including but not limited to infection, leg length discrepancy, dislocation, nerve injury, and fracture. Covid-19 was also discussed at length with the patient, and they are aware of the current policies and procedures. The patient was given the option of delaying surgery, but they elect to proceed knowing these risks. Patient is aware of all these complications and informed consent was obtained Operative Findings: The operative findings are consistent with severe osteoarthritis of the right hip Description of Procedure: Patient was seen and evaluated in the preoperative area and the consent was reviewed. The operative site was marked with a skin marker. The patient was then brought to the operating room and given preoperative antibiotics intravenously. 1 g of Tranexamic acid was also given intravenously. A general anesthetic was administered by the anesthesia department. The patient was then placed on the [place] table with the bony prominences well-padded. The hip area was then prepped with a ChloraPrep solution and draped in the usual sterile fashion. A universal timeout was then performed, which confirmed the patient's name, surgical site, ALLERGIES, and procedure being performed on the consent. Next the incision site was located at 1 cm distal and 2 cm lateral to the anterior superior iliac spine. The skin and subcutaneous tissues were sharply incised. Incision was carefully dissected down to the fascia overlying the tensor fascia mehnaz muscle. This fascia was then incised in line with the incision. Care was taken to stay laterally in order to avoid injuring the lateral femoral cutaneous nerve. Next, using blunt finger dissection, the tensor fascia mehnaz muscle was dissected off its investing fascia. The muscle was then carefully retracted laterally with a cobra retractor over the lateral neck of the femur. Next, the circumflex vessels were identified and cauterized using the AquaMantis device. The anterior hip capsule was then exposed. The capsule was then opened and an inverted T fashion. Cobra retractors were then placed intracapsularly. The retractors were maintained intracapsular throughout the procedure. The proximal femur was then visualized. Fluoroscopic x-rays were then taken in order to evaluate the preoperative leg lengths. A small amount of traction was placed on the leg. The femoral neck was then osteotomized at the appropriate level above the lesser trochanter. A small wedge of bone was then removed from the remaining femoral head. Next, using a corkscrew the femoral head was removed from the acetabulum. On gross visual inspection, the femoral head had complete loss of articular cartilage and multiple periarticular osteophytes. The femoral head was then measured. Attention was then turned to the acetabulum. The acetabulum was exposed and any remaining labrum was excised. Sequential reaming of the acetabulum was performed using fluoroscopic guidance until there was a good bed of bleeding cancellus bone. When the appropriate size was reached, a trial was then placed. The position and fit of the trial was checked with fluoroscopy. The trial was then removed. Then, using fluoroscopic guidance, the final implant was impacted at 20 of anteversion and 40 of abduction, and fully seated in the acetabulum. 2 screws were then placed in the acetabulum. Again fluoroscopy was used to check position of the screws. Next, the liner was then impacted, with a 20 elevated liner located in the anterior superior quadrant. Component locking was confirmed. Attention was then directed to the femur. With the aid of the [place] table, the femur was externally rotated to approximately 130, extended, and adducted under the opposite leg. A side hook was then placed under the proximal femur, and the side hook elevator was used to elevate the proximal femur while releasing the capsule. Retractors were then placed. A capsular release was performed, as well as a release of the conjoined tendon, which afforded excellent visualization of the proximal femur. Next, a box osteotome was used to lateralize the proximal femur. A merchandise deliverer was then used to locate the femoral canal. Sequential broaching was then performed with appropriate size which afforded excellent fixation in the proximal femur. A trial was then placed with appropriate head and neck, and the hip was gently reduced with the aid of the [place] table. Fluoroscopy was then used to check position of the components, as well as to ensure equal leg lengths. The hip was then gently di slocated and the trials were then removed. Final implants were then impacted and the hip was again reduced. Final fluoroscopic x-rays confirmed that the components were in anatomic position, as well as equal leg lengths. The hip was also taken through range of motion, and found to be stable. The hip was then copiously irrigated with antibiotic solution with pulsatile lavage. The hip was then irrigated with Irrisept solution. The soft tissues were then injected with a ropivacaine solution. A second dose of 1 g of Tranexamic acid was also given intravenously. The fascia was then closed with 2-0 strata fix suture. The subcutaneous tissue was closed with 3-0 Vicryl. The subcuticular tissue was closed with 3-0 strata fix suture. The skin was then closed with Exofin skin glue. After the glue and dried, and Optifoam silver impregnated dressing was applied. The patient was then transferred to the recovery room in stable condition. The finance assistant MATTHEW Mcclelland was required due to the complexity of surgery, and the need for skilled assistant athletic trainer for positioning, draping, exposure, retraction, and closure of the wound.
[2021-11-30] MEDS: MEPERIDINE 50 MG/ML SYRINGE IVP ONE ×2 (15:12→15:29)
[2021-11-30] MEDS: fentaNYL (PF) 50 MCG/ML 2 ML AMP IVP ONE ×2 (15:39→15:47)
--- NOTE | 2021-11-30 15:39 | XR ---
EXAMINATION TYPE: XR Hip Limited RT DATE OF EXAM: 11/30/2021 Comparison: None Clinical History: 71-year-old female Status post hip surgery, assess surgical alignment Findings: Image shows placement of right hip total arthroplasty. Both acetabular cup and femoral stem component s of the prosthesis appear well seated without periprosthetic fracture. Alignment grossly anatomic. S cattered soft tissue air related to recent operation. Impression: Uncomplicated postoperative appearance right hip total arthroplasty.
--- NOTE | 2021-11-30 15:50 | FL ---
EXAMINATION TYPE: FL guidance operating room, XR Hip Complete RT DATE OF EXAM: 11/30/2021 COMPARISON: NONE HISTORY: 71-year-old female with anterior right hip replacement FINDINGS: Fluoroscopic images during placement a right hip total arthroplasty. FLUOROSCOPY Fluoroscopy time of 40 seconds was used during anterior right hip replacement. 4 image/s document/s the procedure. IMPRESSION: Intraoperative fluoroscopy as above.
[2021-11-30] MEDS ORDERED: MORPHINE SULFATE 4 MG/ML SYRINGE IVP ONE ×2 (16:08→16:35)
[2021-11-30] MEDS ORDERED: diphenhydrAMINE 50 MG/ML 1 ML VIAL IVP ONE (16:56)
[2021-11-30] MEDS: HYDROcodone/APAP 7.5-325MG 1 EACH TAB PO PRN (19:27)
[2021-11-30] MEDS: SENNOSIDES-DOCUSATE SODIUM 1 EACH TAB PO SCH (19:30)
[2021-11-30] MEDS: SODIUM CHLORIDE 0.9% 1,000 ML IV SCH (21:32)
--- NOTE | 2021-11-30 21:48 | P.CONS ---
History of Present Illness - Reason for Consult Consult date: 11/30/21 - History of Present Illness The patient is a 71 yo F with a PMH of A. fib on Eliquis, hypothyroidism, hypertension, hyperlipidemia who was admitted for an elective right hip arthroplasty. The patient underwent the procedure earlier today with no immediate postoperative palpitations. She reported excellent control her pain at time of interview, rated at a 1 out of 10 in the right hip. Denied any additional complaints. Denied experiencing chest discomfort, shortness of breath, fever, chills, cough, nausea, vomiting, abdominal pain, diarrhea. Reports compliance with all her medications at home. The patient reports that her Eliquis is currently on hold for the surgery. Review of systems: Pertinent positives and negatives as discussed in HPI, a complete review of systems was performed and all other systems are negative. Physical examination: General: non toxic, no distress, appears at stated age, obese Derm: no unusual rashes/lesions no unusual ecchymoses, warm, dry, right anterior hip dressing in place clean and dry Head: atraumatic, normocephalic, symmetric Eyes: EOMI, no lid lag, anicteric sclera, pupils equal round reactive to light ENT: Nose and ears atraumatic, no thrush, no pharyngeal erythema Neck: No thyromegaly, no cervical lymphadenopathy, trachea midline, supple Mouth: no lip lesion, mucus membranes moist Cardiovascular: S1S2 reg, no murmur, positive posterior tibial pulse bilateral, no edema, capillary refill less than 2 seconds Lungs: CTA bilateral, no rhonchi, no rales , no accessory muscle use Abdominal: soft, nontender to palpation, no guarding, no appreciable organomegaly, normal bowel sounds Ext: no gross muscle atrophy, muscle strength 5 out of 5 in all 4 extremities grossly except right proximal lower extremity postsurgically, right distal lower extremity strength 5 out of 5, no contractures, Neuro: CN II-XI grossly intact, light touch intact all 4 extremities, finger to nose within normal limits, Psych: Alert, oriented, appropriate affect Assessment/plan Chronic conditions: A. fib, hypertension, hyperlipidemia, hypothyroidism -Continue with home medications -Defer resumption of Eliquis to primary surgery service Status post right total hip arthroplasty -Defer management including pain control to the surgery service We appreciate this opportunity to be involved in this patient's care. We will follow the patient with you. For any further questions, please not hesitate to contact the [facility] [place] inpatient team. Past Medical History Past Medical History: Chest Pain / Angina, Fibromyalgia, GERD/Reflux, Hyperlipidemia, Hypertension, Musculoskeletal Disorder, Osteoarthritis (OA), Th yroid Disorder Additional Past Medical History / Comment(s): migraines, IBS, hypothyroid, swollen feet due to lack of veins in legs, ulcers, past hx. 5 lung nodules-never needed tx. for, was monitored, mitral, aortic, tricuspid valve regurge. bulging discs in back, bone spurs, neck problems & decreased ROM, sometimes dysphagia History of Any Multi-Drug Resistant Organisms: None Reported Past Surgical History: Breast Surgery, Cholecystectomy, Hysterectomy, Orthopedic Surgery Additional Past Surgical History / Comment(s): exp. surgery as a kid to see why feet swell findings were lack of veins in legs, left breast cyst removal, exp. laparotomy for "twisted bowel", colonoscopy, achilles tendon repair, EGD w/dilatation's Past Anesthesia/Blood Transfusion Reactions: Previous Problems w/ Anesthesia Additional Past Anesthesia/Blood Transfusion Reaction / Comm: told has narrow opening & needs smaller "tube", difficult intubation w/anthony @[facility] Smoking Status: Never smoker - Past Family History Mother Family Medical History: Coronary Artery Disease (CAD) Father Family Medical History: Coronary Artery Disease (CAD) Additional Family Medical History / Comment(s): cabg Sister(s) Family Medical History: Cancer Additional Family Medical History / Comment(s): breast cancer twice Son(s) Family Medical History: Memory Impairment Medications and Allergies Home Medications Medication Instructions Recorded Confirmed Type Calcium Carbonate [Calcium] 1,200 mg PO DAILY 10/22/17 11/30/21 History Levothyroxine Sodium 100 mcg PO DAILY 10/22/17 11/30/21 History Triamterene-Hctz 37.5-25Mg 1 cap PO DAILY 10/22/17 11/30/21 History [Dyazide 37.5-25 Capsule] Cholecalciferol [Vitamin D3 (25 25 mcg PO DAILY 02/02/21 11/30/21 History Mcg = 1000 Iu)] Nortriptyline [Pamelor] 10 - 20 mg PO HS PRN 02/02/21 11/30/21 History Pantoprazole Sodium [Protonix] 40 mg PO BID 02/02/21 11/30/21 History Zinc 50 mg PO DAILY 02/02/21 11/30/21 History Apixaban [Eliquis] 5 mg PO BID #180 tab 02/03/21 11/30/21 Rx Metoprolol Tartrate [Lopressor] 25 mg PO BID #180 tab 02/03/21 11/30/21 Rx Rizatriptan Benzoate [Maxalt] 10 mg PO DAILY PRN 02/03/21 11/30/21 History Ascorbic Acid [Vitamin C] 1,000 mg PO DAILY 09/15/21 11/30/21 History Valsartan 80 mg PO DAILY 09/15/21 11/30/21 History Vitamin B Complex 1 cap PO DAILY 09/15/21 11/30/21 History Ezetimibe [Zetia] 10 mg PO DAILY 11/26/21 11/30/21 History traMADol HCL [Ultram] 50 mg PO Q6HR PRN 11/29/21 11/30/21 History HYDROcodone/APAP 7.5-325MG [[place] 1 - 2 tab PO Q6H PRN #32 tab 11/30/21 Rx 7.5-325] Ondansetron Odt [Zofran Odt] 1 tab PO Q8HR PRN #10 tab 11/30/21 Rx Sennosides [Senokot] 2 tab PO DAILY PRN #60 tablet 11/30/21 Rx Allergies Allergy/AdvReac Type Severity Reaction Status Date / Time cefaclor [From Ceclor] Allergy Rash/Hives Verified 11/30/21 13:11 clarithromycin [From Biaxin] AdvReac Nausea Verified 11/30/21 13:11 hydromorphone [From Dilaudid] AdvReac Hallucinati Verified 11/30/21 13:11 ons levofloxacin [From Levaquin] AdvReac Nausea Verified 11/30/21 13:11 methylprednisolone AdvReac Rash/Hives Verified 11/30/21 13:11 [From Medrol] ofloxacin [From Floxin] AdvReac Nausea Verified 11/30/21 13:11 [id number] Reductase AdvReac can't take Verified 11/30/21 13:11 Inhibitor affects liver enzymes topiramate [From Topamax] AdvReac Nausea Verified 11/30/21 13:11 Physical Exam Vitals: Vital Signs Temp Pulse Pulse Resp BP Pulse Ox 11/30/21 18:33 97.6 F 80 19 133/71 100 11/30/21 17:48 75 16 110/59 99 11/30/21 17:32 77 16 116/57 100 11/30/21 17:15 76 16 103/63 100 11/30/21 16:46 73 16 119/59 100 11/30/21 16:30 81 16 123/62 100 11/30/21 16:16 77 16 113/63 100 11/30/21 16:02 79 16 123/61 100 11/30/21 15:47 73 16 118/60 98 11/30/21 15:32 76 16 142/59 95 11/30/21 15:16 76 16 133/61 97 11/30/21 15:05 96.9 F L 83 16 140/60 97 11/30/21 13:34 89 16 100 11/30/21 12:40 98.5 F 87 16 167/74 97 Intake and Output 11/30/21 11/30/21 11/30/21 06:59 14:59 22:59 Intake Total 850 650 Output Total 250 Balance 600 650 Intake: IV 850 650 Output: Estimated Blood Loss 250 Other: # Voids 1 Weight 76.9 kg Results CBC & Chem 7: 11/24/21 14:28 11/24/21 14:28
[2021-11-30] MEDS: MORPHINE SULFATE 4 MG/ML SYRINGE IVP PRN (22:35)
[2021-12-01] MEDS ORDERED: SODIUM CHLORIDE 0.9% 500 ML 500 ML IV ONE ×2 (00:42→01:32)
[2021-12-01] MEDS: HYDROcodone/APAP 7.5-325MG 1 EACH TAB PO PRN ×4 (01:33→20:12)
[2021-12-01] MEDS: VANCOMYCIN 1,250 MG in SODIUM CHLORIDE 0.9% 250 ML IVPB SCH ×2 (04:11→20:37)
[2021-12-01] MEDS: APIXABAN 5 MG TAB PO SCH ×2 (07:25→20:13)
[2021-12-01] MEDS: SODIUM CHLORIDE 0.9% 1,000 ML IV SCH ×2 (07:26→20:41)
[2021-12-01] MEDS: LEVOTHYROXINE 100 MCG TAB PO SCH (08:37)
[2021-12-01] MEDS: METOPROLOL TARTRATE 25 MG TAB PO SCH ×2 (08:37→20:13)
[2021-12-01 09:12] LABS: Basophils # (A) 0.02 X 10*3/uL (0.00-0.10); Basophils % (A) 0.4 %; Eosinophils # (A) 0.07 X 10*3/uL (0.04-0.35); Eosinophils % (A) 1.5 %; HCT 24.8 % (37.2-46.3); HGB 8.2 g/dL (12.0-15.0); Immature Grans, Automated 0.6 %; Lymphocytes # (A) 0.54 X 10*3/uL (0.90-5.00); Lymphocytes % (A) 11.5 %; MCH 32.4 pg (27.0-32.0); MCHC 33.1 g/dL (32.0-37.0); Mean Platelet Volume 10.8 fL (9.5-12.2); NRBC Per 100 WBC 0 /100 WBCS (0.0-0.0); Neutrophils # (A) 3.32 X 10*3/uL (1.80-7.70); Platelet Count 233 X 10*3/uL (140-440); RBC 2.53 X 10*6/uL (4.10-5.20); RDW 12.9 % (11.5-14.5); WBC 4.68 X 10*3/uL (4.50-10.00)
[2021-12-01] MEDS: MORPHINE SULFATE 4 MG/ML SYRINGE IVP PRN (09:12)
[2021-12-01] MEDS: PANTOPRAZOLE 40 MG TABLET PO SCH ×2 (13:22→18:42)
--- NOTE | 2021-12-01 13:48 | P.PN ---
Subjective Progress Note Date: 12/01/21 Status post right hip arthroplasty. Patient reports pain at right hip, per RN she is getting morphine. Review of vitals - blood pressure on the lower side, tachycardic. Patient does have history of A. fib and takes metoprolol and Eliquis at home. She denies any chest pain, shortness of breath, fever, chills, vomiting, abdominal pain, diarrhea. Eliquis has been resumed by primary service. Objective - Vital Signs Vital signs: Vital Signs Temp 98.4 F 12/01/21 08:29 Pulse 108 H 12/01/21 08:29 Resp 18 12/01/21 08:29 BP 111/66 12/01/21 08:29 Pulse Ox 90 L 12/01/21 08:32 Intake & Output 11/30/21 12/01/21 12/01/21 18:59 06:59 18:59 Intake Total 1500 Output Total 250 Balance 1250 Weight 76.9 kg 76.9 kg Intake: IV 1500 Output: Estimated Blood Loss 250 Other: Voiding Method Toilet Bedside Commode # Voids 1 1 - Exam Constitutional: No acute distress, on room air HEENT: Pupils equally reactive to light, atraumatic, normocephalic. Lungs: Clear to auscultation bilaterally, no wheezing, no crackles Cardiovascular: Sinus tachycardia, S1-S2 normal, no murmur, no peripheral edema Abdominal: Soft, nontender, no guarding, rebound or rigidity Extremities: No cyanosis or clubbing Neuro: No focal neurological signs alert - Labs CBC & Chem 7: 12/01/21 03:18 11/24/21 14:28 Labs: Abnormal Lab Results - Last 24 Hours (Table) 12/01/21 Range/Units 03:18 RBC 2.53 L (4.10-5.20) X 10*6/uL Hgb 8.2 L (12.0-15.0) g/dL Hct 24.8 L (37.2-46.3) % MCV 98.0 H (80.0-97.0) fL MCH 32.4 H (27.0-32.0) pg Lymphocytes # 0.54 L (0.90-5.00) X 10*3/uL Assessment and Plan Assessment: 1. Atrial fibrillation - Currently in sinus tachycardia - I will resume home medication of metoprolol - Eliquis has been resumed by primary service 2. Hypertension - Blood pressure is on the lower side at this time - Continue to hold home medication of lisinoprilhydrochlorothiazide - Monitor BP. 3. Hypothyroidism - I will resume home medication of levothyroxine 4. GERD - I will resume home medication of Protonix 5. Hyponatremia - Sodium 126 on most recent labs done on November 24 - Likely hypovolemic hyponatremia, patient uses diuretic at home. On IV fluids at this time - Check BMP. Pain management per primary service Recommend PT OT I will continue to follow.
--- NOTE | 2021-12-01 16:19 | P.PN ---
Subjective Progress Note Date: 12/01/21 This patient is a 71- year old female who is status-post right total hip arthroplasty on 11/30/21. Today is post-operative day #1. Patient is seen and examined bedside. She states her pain is not controlled at this time. She has not yet been up with physical therapy due to her pain. She otherwise feels well and denies chest pain, shortness of breath, nausea, vomiting. Vital signs stable. Objective - Vital Signs Vital signs: Vital Signs Temp 98.4 F 12/01/21 08:29 Pulse 108 H 12/01/21 08:29 Resp 18 12/01/21 08:29 BP 111/66 12/01/21 08:29 Pulse Ox 90 L 12/01/21 08:32 Intake & Output 11/30/21 12/01/21 12/01/21 18:59 06:59 18:59 Intake Total 1500 Output Total 250 Balance 1250 Weight 76.9 kg 76.9 kg Intake: IV 1500 Output: Estimated Blood Loss 250 Other: Voiding Method Toilet Bedside Commode # Voids 1 1 - Exam On examination, patient is sitting up in bed in no apparent distress. She is alert and orientated x3. On inspection of the right hip, there is a clean, dry, intact Optifoam dressing intact. No bleeding or drainage through the dressing. Mild swelling of the thigh, thigh is soft and compressible. Motor and sensory function is intact of the RLE, femoral nerve function intact. RLE is warm and well perfused. Calf is soft and non-tender. - Labs CBC & Chem 7: 12/01/21 03:18 11/24/21 14:28 Labs: Abnormal Lab Results - Last 24 Hours (Table) 12/01/21 Range/Units 03:18 RBC 2.53 L (4.10-5.20) X 10*6/uL Hgb 8.2 L (12.0-15.0) g/dL Hct 24.8 L (37.2-46.3) % MCV 98.0 H (80.0-97.0) fL MCH 32.4 H (27.0-32.0) pg Lymphocytes # 0.54 L (0.90-5.00) X 10*3/uL Assessment and Plan Assessment: Status-post right total hip arthroplasty on 11/30/21. Post-operative day #1. Plan: - Patient may weight bear as tolerated on right lower extremity with a walker. - Physical therapy for gait and balance training. - Keep Optifoam dressing intact. - Pain management as needed. Decrease use of IV morphine as tolerated. - 2 doses of post-operative antibiotics complete. - Resume Eliquis for DVT prophylaxis. - Internal medicine for jose roberto-operative medical management. - Anticipate discharge home with home health care tomorrow.
[2021-12-01] MEDS: SENNOSIDES-DOCUSATE SODIUM 1 EACH TAB PO SCH (20:13)
[2021-12-02] MEDS: HYDROcodone/APAP 7.5-325MG 1 EACH TAB PO PRN ×2 (03:03→09:12)
[2021-12-02 03:45] LABS: African American GFR (CKD) 58.5 (60.0-200.0); Anion Gap 19.8 mmol/L (10.00-18.00); BUN/Creat Ratio 6.09 Ratio (12.00-20.00); Blood Urea Nitrogen 6.7 mg/dL (9.0-27.0); Calcium 8.7 mg/dL (8.7-10.3); Carbon Dioxide 13.2 mmol/L (20.0-27.5); Non-African American GFR(CKD) 50.5 (60.0-200.0); Potassium 4.7 mmol/L (3.5-5.5)
[2021-12-02] MEDS: SODIUM CHLORIDE 0.9% 1,000 ML IV SCH (04:37)
[2021-12-02] MEDS: LEVOTHYROXINE 100 MCG TAB PO SCH (06:02)
[2021-12-02] MEDS: PANTOPRAZOLE 40 MG TABLET PO SCH (07:46)
[2021-12-02] MEDS: APIXABAN 5 MG TAB PO SCH (07:46)
[2021-12-02] MEDS: METOPROLOL TARTRATE 25 MG TAB PO SCH (07:47)
[2021-12-02 09:43] LABS: Basophils % (A) 1 %; Eosinophils # (A) 0.1 k/uL (0-0.7); Eosinophils % (A) 2 %; HCT 29.3 % (34.0-46.0); HGB 9.8 gm/dL (11.4-16.0); Lymphocytes # (A) 0.8 k/uL (1.0-4.8); Lymphocytes % (A) 12 %; MCH 33.4 pg (25.0-35.0); MCHC 33.4 g/dL (31.0-37.0); MCV 100.1 fL (80.0-100.0); Mean Platelet Volume 6.9; Monocytes # (A) 0.7 k/uL (0-1.0); Monocytes % (A) 9 %; Neutrophils # (A) 5.3 k/uL (1.3-7.7); Neutrophils % (A) 74 %; Platelet Count 315 k/uL (150-450); RBC 2.93 m/uL (3.80-5.40); RDW 13.3 % (11.5-15.5); WBC 7.2 k/uL (3.8-10.6)
--- NOTE | 2021-12-02 10:13 | P.DS ---
Providers Date of admission: 12/02/21 09:04 Expected date of discharge: 12/02/21 Attending physician: Meliton Gonzalez Consults: 11/30/21 12:48 Consult Physician Routine Consulting Provider: Debra Arthur Consult Reason/Comments: medical management Do you want consulting provider notified?: Yes Primary care physician: Charles Shahid MD - Discharge Diagnosis(es) (1) Osteoarthritis of right hip Current Visit: Yes Status: Acute (2) S/P total right hip arthroplasty Current Visit: Yes Status: Acute Hospital Course: This is a 71-year-old female with known history of degenerative arthritis of the right hip. The patient presented for evaluation as an outpatient. After discussion and consideration patient elects to proceed with total hip arthroplasty. The patient is seen preoperatively by Dr. Gonzalez and medically cleared for surgery by their primary care physician. Patient is admitted to [facility] on 11/30/2021 for total hip arthroplasty. The procedure is performed without complication or sequelae. The patient is doing well postoperatively. Labs and vital signs are stable on day of discharge. On day of discharge patient's hip incision is healing well. There is minimal e rythema. There is no drainage noted at this time. There is minimal soft tissue swelling to the hip and thigh. Patient has full foot and ankle motion without difficulty or pain. Calf is soft and nontender to palpation. Neurovascular status to the right lower extremity is intact. Patient is discharged home in good condition. Opioid start talking form is reviewed and signed. Please see med rec for accurate list of home medications. Plan - Discharge Summary Discharge Rx Participant: No New Discharge Prescriptions: New HYDROcodone/APAP 7.5-325MG [Jackson 7.5-325] 1 - 2 tab PO Q6H PRN #32 tab PRN Reason: Pain Sennosides [Senokot] 2 tab PO DAILY PRN #60 tablet PRN Reason: Constipation Ondansetron Odt [Zofran Odt] 1 tab PO Q8HR PRN #10 tab PRN Reason: Nausea No Action Calcium Carbonate [Calcium] 1,200 mg PO DAILY Levothyroxine Sodium 100 mcg PO DAILY Triamterene-Hctz 37.5-25Mg [Dyazide 37.5-25 Capsule] 1 cap PO DAILY Nortriptyline [Pamelor] 10 - 20 mg PO HS PRN PRN Reason: Insomnia Metoprolol Tartrate [Lopressor] 25 mg PO BID #180 tab Vitamin B Complex 1 cap PO DAILY Ascorbic Acid [Vitamin C] 1,000 mg PO DAILY Valsartan 80 mg PO DAILY Ezetimibe [Zetia] 10 mg PO DAILY traMADol HCL [Ultram] 50 mg PO Q6HR PRN PRN Reason: Pain Cholecalciferol [Vitamin D3 (25 Mcg = 1000 Iu)] 25 mcg PO DAILY Zinc 50 mg PO DAILY Pantoprazole Sodium [Protonix] 40 mg PO BID Rizatriptan Benzoate [Maxalt] 10 mg PO DAILY PRN PRN Reason: Migraine Headache Apixaban [Eliquis] 5 mg PO BID #180 tab Discharge Medication List Calcium Carbonate [Calcium] 1,200 mg PO DAILY 10/22/17 [History] Levothyroxine Sodium 100 mcg PO DAILY 10/22/17 [History] Triamterene-Hctz 37.5-25Mg [Dyazide 37.5-25 Capsule] 1 cap PO DAILY 10/22/17 [History] Cholecalciferol [Vitamin D3 (25 Mcg = 1000 Iu)] 25 mcg PO DAILY 02/02/21 [History] Nortriptyline [Pamelor] 10 - 20 mg PO HS PRN 02/02/21 [History] Pantoprazole Sodium [Protonix] 40 mg PO BID 02/02/21 [History] Zinc 50 mg PO DAILY 02/02/21 [History] Apixaban [Eliquis] 5 mg PO BID #180 tab 02/03/21 [Rx] Metoprolol Tartrate [Lopressor] 25 mg PO BID #180 tab 02/03/21 [Rx] Rizatriptan Benzoate [Maxalt] 10 mg PO DAILY PRN 02/03/21 [History] Ascorbic Acid [Vitamin C] 1,000 mg PO DAILY 09/15/21 [History] Valsartan 80 mg PO DAILY 09/15/21 [History] Vitamin B Complex 1 cap PO DAILY 09/15/21 [History] Ezetimibe [Zetia] 10 mg PO DAILY 11/26/21 [History] traMADol HCL [Ultram] 50 mg PO Q6HR PRN 11/29/21 [History] HYDROcodone/APAP 7.5-325MG [Jackson 7.5-325] 1 - 2 tab PO Q6H PRN #32 tab 11/30/21 [Rx] Ondansetron Odt [Zofran Odt] 1 tab PO Q8HR PRN #10 tab 11/30/21 [Rx] Sennosides [Senokot] 2 tab PO DAILY PRN #60 tablet 11/30/21 [Rx] Follow up Appointment(s)/Referral(s): Liz Kang,[facility] [NON-STAFF] - (Liz Kang will call you to schedule your in home physical therapy visits. ) Charles Shahid MD [REFERRING] - 1 Week Meliton Gonzalez DO [Doctor of Osteopathic Medicine] - 12/15/21 3:15 pm Activity/Diet/Wound Care/Special Instructions: Weightbearing as tolerated with walker. Leave dressing intact. Dressing may be removed by home care nurse or by patient in 7 days. Then change dressing twice daily until follow up. May shower with initial dressing intact and after removal. If dressing become saturated, please remove. Please resume Eliquis. Recommend use of compression stockings daily until follow up to help prevent swelling and blood clots. May remove at night before sleeping. Please follow-up with [facility] in 2 weeks and call with any questions or concerns, . Discharge Disposition: HOME WITH HOME HEALTH SERVICES
[2021-12-02 10:32] VITALS: PULSE 101; RESP 17; TEMP 99.4
[2021-12-02 10:36] VITALS: BP 121/62
--- NOTE | 2021-12-02 14:11 | P.PN ---
Subjective Progress Note Date: 12/02/21 Status post right hip arthroplasty. Reports much better pain control today. States that she might be going home today. Denies chest pain, shortness of breath or palpitations. No fever or chills. Tolerating by mouth intake. Worked with physical therapy today.. Objective - Vital Signs Vital signs: Vital Signs Temp 99.4 F 12/02/21 10:13 Pulse 101 H 12/02/21 10:13 Resp 17 12/02/21 10:13 BP 121/62 12/02/21 10:13 Pulse Ox 94 L 12/02/21 10:13 Intake & Output 12/01/21 12/02/21 12/02/21 18:59 06:59 18:59 Intake Total 1080 Balance 1080 Intake: Oral 1080 Other: Voiding Method Toilet Toilet Bedside Commode Bedside Commode # Voids 3 - Exam Constitutional: No acute distress, on room air HEENT: Pupils equally reactive to light, atraumatic, normocephalic. Lungs: Clear to auscultation bilaterally, no wheezing, no crackles Cardiovascular: Sinus tachycardia, S1-S2 normal, no murmur, no peripheral edema Abdominal: Soft, nontender, no guarding, rebound or rigidity Extremities: No cyanosis or clubbing Neuro: No focal neurological signs alert - Labs CBC & Chem 7: 12/02/21 09:27 12/01/21 14:38 Labs: Abnormal Lab Results - Last 24 Hours (Table) 12/01/21 12/02/21 Range/Units 14:38 09:27 RBC 2.93 L (3.80-5.40) m/uL Hgb 9.8 L (11.4-16.0) gm/dL Hct 29.3 L (34.0-46.0) % MCV 100.1 H (80.0-100.0) fL Lymphocytes # 0.8 L (1.0-4.8) k/uL Sodium 132 L (135-145) mmol/L Carbon Dioxide 13.2 L (20.0-27.5) mmol/L Anion Gap 19.80 H (10.00-18.00) mmol/L BUN 6.7 L (9.0-27.0) mg/dL Est GFR (CKD-EPI)AfAm 58.5 L (60.0-200.0) Est GFR (CKD-EPI)NonAf 50.5 L (60.0-200.0) BUN/Creatinine Ratio 6.09 L (12.00-20.00) Ratio Assessment and Plan Assessment: 1. Atrial fibrillation - Rate controlled - I have resumed home medication of metoprolol, to be continued - Eliquis has been resumed by primary service 2. Hypertension - Recommend following up with PCP prior to initiation of antihypertensive. 3. Hypothyroidism - I will resume home medication of levothyroxine 4. GERD - I will resume home medication of Protonix 5. Hyponatremia - Hypo-and make hyponatremia, improved with IV fluids. Stable from medical standpoint for discharge home. Recommend following up with PCP within a week for antihypertensive medication adjustment.
== END 2021-12-02 12:34 | disposition home health service (06) | DRG 982 ==
LOC: OR 12:28 → 4SSUR 14:57 → OR 12-02 08:55 → 4SSUR 12-02 09:04
PROVIDERS: ADMIT Orthopaedic Surgery; ATTEND Orthopaedic Surgery
PROC: 0SR906A Replacement of Right Hip Joint with Oxidized Zirconium on Polyethylene Synthetic Substitute, Uncemented, Open Approach (ICD-10-PCS; principal; 2021-12-02)
DX: I48.0 Paroxysmal atrial fibrillation (principal); E87.1 Hypo-osmolality and hyponatremia; E03.9 Hypothyroidism, unspecified; N18.31 Chronic kidney disease, stage 3a; I73.9 Peripheral vascular disease, unspecified; M16.11 Unilateral primary osteoarthritis, right hip; E86.1 Hypovolemia; E78.2 Mixed hyperlipidemia; I65.22 Occlusion and stenosis of left carotid artery; I10 Essential (primary) hypertension; M79.7 Fibromyalgia; K21.9 Gastro-esophageal reflux disease without esophagitis; K57.30 Diverticulosis of large intestine without perforation or abscess without bleeding; K58.9 Irritable bowel syndrome, unspecified; R13.10 Dysphagia, unspecified; R91.8 Other nonspecific abnormal finding of lung field; E66.9 Obesity, unspecified; Z68.31 Body mass index [BMI] 31.0-31.9, adult; Z79.01 Long term (current) use of anticoagulants; Z79.890 Hormone replacement therapy; Z79.899 Other long term (current) drug therapy; Z86.16 Personal history of COVID-19; Z90.49 Acquired absence of other specified parts of digestive tract; Z87.19 Personal history of other diseases of the digestive system; Z90.710 Acquired absence of both cervix and uterus; Z87.42 Personal history of other diseases of the female genital tract; Z87.39 Personal history of other diseases of the musculoskeletal system and connective tissue; Z87.2 Personal history of diseases of the skin and subcutaneous tissue; Z90.89 Acquired absence of other organs; Z86.69 Personal history of other diseases of the nervous system and sense organs; Z98.890 Other specified postprocedural states; Z88.1 Allergy status to other antibiotic agents; Z88.8 Allergy status to other drugs, medicaments and biological substances; Z82.49 Family history of ischemic heart disease and other diseases of the circulatory system; Z80.3 Family history of malignant neoplasm of breast; Z82.0 Family history of epilepsy and other diseases of the nervous system
CPT/HCPCS: 36415; 73501; 73502; 80048; 80053; 81001; 85025; 85027; 85610; 85730; 86850; 86900; 86901; 87070; 88300; 93005; 94760

== ENCOUNTER → 2022-05-10 | Outpatient (CLI) | payer MEDICARE ==
[2022-05-10 15:43] LABS: Basophils # (A) 0.07 X 10*3/uL (0.00-0.10); Basophils % (A) 1.3 %; Eosinophils # (A) 0.18 X 10*3/uL (0.04-0.35); Eosinophils % (A) 3.3 %; HCT 36.8 % (37.2-46.3); HGB 12.6 g/dL (12.0-15.0); Immature Grans, Automated 0.5 %; Lymphocytes # (A) 1.77 X 10*3/uL (0.90-5.00); Lymphocytes % (A) 32.4 %; MCH 31.1 pg (27.0-32.0); MCHC 34.2 g/dL (32.0-37.0); MCV 90.9 fL (80.0-97.0); Mean Platelet Volume 10.3 fL (9.5-12.2); Monocytes # (A) 0.53 X 10*3/uL (0.20-1.00); Monocytes % (A) 9.7 %; NRBC Per 100 WBC 0 /100 WBCS (0.0-0.0); Neutrophils # (A) 2.88 X 10*3/uL (1.80-7.70); Neutrophils % (A) 52.8 %; Platelet Count 267 X 10*3/uL (140-440); RBC 4.05 X 10*6/uL (4.10-5.20); RDW 14.1 % (11.5-14.5); WBC 5.46 X 10*3/uL (4.50-10.00)
[2022-05-10 15:51] LABS: ALT 32 U/L (8-44); AST 31 U/L (13-35); African American GFR (CKD) 59.4 (60.0-200.0); Albumin 4.5 g/dL (3.8-4.9); Albumin/Globulin Ratio 2.01 (1.60-3.17); Alkaline Phosphatase 153 U/L (41-126); BUN/Creat Ratio 15.09 Ratio (12.00-20.00); Blood Urea Nitrogen 16.3 mg/dL (9.0-27.0); Calcium 9.7 mg/dL (8.7-10.3); Carbon Dioxide 27.3 mmol/L (20.0-27.5); Chloride 93 mmol/L (96-109); Chol/HDL Ratio 2.55 Ratio; Globulin 2.2 g/dL (1.6-3.3); Glucose 101 mg/dL (70-110); LDL Cholesterol,Calculated 102.1 mg/dL (0.0-131.0); Non-African American GFR(CKD) 51.2 (60.0-200.0); Potassium 4.8 mmol/L (3.5-5.5); Sodium 130 mmol/L (135-145); Total Protein 6.7 g/dL (6.2-8.2); VLDL Calculation 16.34 mg/dL (5.00-40.00)
== END | disposition home or self-care (01) ==
LOC: LABWHC1 09:47
PROVIDERS: ATTEND Internal Medicine Interventional Cardiology
DX: E78.2 Mixed hyperlipidemia (principal); R74.8 Abnormal levels of other serum enzymes
CPT/HCPCS: 36415; 80053; 80061; 85025

== ENCOUNTER → 2022-11-29 | Outpatient (CLI) | payer MEDICARE ==
--- NOTE | 2022-11-29 12:02 | US ---
EXAMINATION TYPE: US abdomen complete DATE OF EXAM: 11/29/2022 COMPARISON: prior US abd in PACS CLINICAL HISTORY: R10.9 UNSPECIFIED ABDOMINAL PAIN. Persisting RLQ pain TECHNIQUE: Multiple sonographic images of the abdomen are obtained. FINDINGS: EXAM MEASUREMENTS: Liver Length: 15.6 cm Gallbladder Wall: surgically absent CBD: 0.7 cm Spleen: 8.2 cm Right Kidney: 9.7 x 3.4 x 3.9 cm Left Kidney: 9.3 x 3.7 x 4.1 cm ANODE BUILDER NOTES: some exam limitations due to overlying bowel gas Pancreas: Obscured by bowel gas Liver: wnl Gallbladder: surgically absent Evidence for sonographic Mercado's sign: no CBD: wnl Spleen: wnl Right Kidney: wnl Left Kidney: wnl Upper IVC: wnl Abd Aorta: limited due to overlying bowel gas; visualized portion wnl The liver is homogenous. The intrahepatic portion of the IVC and proximal abdominal aorta are within normal limits. Common bile duct is unremarkable. The visualized portions of the pancreas are jessica ogenous. The spleen is unremarkable. Kidneys are symmetric and free of hydronephrosis. No renal le sions are seen. IMPRESSION: No evidence for acute process.
== END | disposition home or self-care (01) ==
LOC: RADUSWWP 10:19
PROVIDERS: ATTEND Family Medicine
DX: R10.31 Right lower quadrant pain (principal)
CPT/HCPCS: 76700

== ENCOUNTER → 2022-11-29 | Outpatient (CLI) | payer MEDICARE ==
[2022-11-29 12:07] LABS: ALT 26 U/L (4-34); AST 32 U/L (14-36); African American GFR (CKD) 63 (>60 ml/min/1.73 sqM); Albumin 4.4 g/dL (3.5-5.0); Albumin/Globulin Ratio 1.4; Alkaline Phosphatase 130 U/L (38-126); Anion Gap 8 mmol/L; Blood Urea Nitrogen 14 mg/dL (7-17); Calcium 9.4 mg/dL (8.4-10.2); Carbon Dioxide 27 mmol/L (22-30); Chloride 97 mmol/L (98-107); Creatine Kinase 48 U/L (30-135); Globulin 3.1 g/dL; Glucose 86 mg/dL (74-99); Non-African American GFR(CKD) 55 (>60 ml/min/1.73 sqM); Potassium 4.9 mmol/L (3.5-5.1); Sodium 132 mmol/L (137-145); Total Bilirubin 0.6 mg/dL (0.2-1.3); Total Protein 7.5 g/dL (6.3-8.2)
[2022-11-29 12:14] LABS: T4, Free (Free Thyroxine) 1.36 ng/dL (0.78-2.19)
[2022-11-29 15:46] LABS: Basophils # (A) 0.08 X 10*3/uL (0.00-0.10); Basophils % (A) 1.4 %; Eosinophils # (A) 0.12 X 10*3/uL (0.04-0.35); Eosinophils % (A) 2.1 %; HCT 40.3 % (37.2-46.3); HGB 13.4 g/dL (12.0-15.0); Immature Grans, Automated 0.2 %; Lymphocytes # (A) 1.56 X 10*3/uL (0.90-5.00); Lymphocytes % (A) 27.8 %; MCH 31.6 pg (27.0-32.0); MCHC 33.3 g/dL (32.0-37.0); Mean Platelet Volume 10.9 fL (9.5-12.2); Monocytes # (A) 0.53 X 10*3/uL (0.20-1.00); Monocytes % (A) 9.4 %; NRBC Per 100 WBC 0 /100 WBCS (0.0-0.0); Neutrophils # (A) 3.32 X 10*3/uL (1.80-7.70); Neutrophils % (A) 59.1 %; Platelet Count 230 X 10*3/uL (140-440); RBC 4.24 X 10*6/uL (4.10-5.20); RDW 12.3 % (11.5-14.5); WBC 5.62 X 10*3/uL (4.50-10.00)
[2022-11-29 21:32] LABS: Chol/HDL Ratio 2.95 Ratio; LDL Cholesterol,Calculated 112.4 mg/dL (0.0-131.0); VLDL Calculation 17.08 mg/dL (5.00-40.00)
== END | disposition home or self-care (01) ==
LOC: LABWHC1 10:27
PROVIDERS: ATTEND Nurse Practitioner Adult Health
DX: Z13.1 Encounter for screening for diabetes mellitus (principal); E87.1 Hypo-osmolality and hyponatremia; E78.2 Mixed hyperlipidemia; E03.9 Hypothyroidism, unspecified; N18.31 Chronic kidney disease, stage 3a; R31.9 Hematuria, unspecified
CPT/HCPCS: 36415; 80053; 80061; 82550; 83036; 83930; 84439; 84443; 84481; 85025

== ENCOUNTER → 2022-12-20 | Outpatient (CLI) | payer MEDICARE ==
[2022-12-20 16:57] LABS: Basophils % (A) 1 %; Eosinophils # (A) 0.1 k/uL (0-0.7); Eosinophils % (A) 2 %; HCT 38.4 % (34.0-46.0); HGB 13.2 gm/dL (11.4-16.0); Lymphocytes # (A) 1.9 k/uL (1.0-4.8); Lymphocytes % (A) 26 %; MCH 31.2 pg (25.0-35.0); MCHC 34.4 g/dL (31.0-37.0); MCV 90.8 fL (80.0-100.0); Mean Platelet Volume 10.2; Monocytes # (A) 0.5 k/uL (0-1.0); Monocytes % (A) 6 %; Neutrophils # (A) 4.7 k/uL (1.3-7.7); Neutrophils % (A) 63 %; Platelet Count 257 k/uL (150-450); RBC 4.23 m/uL (3.80-5.40); RDW 12.3 % (11.5-15.5); WBC 7.5 k/uL (3.8-10.6)
[2022-12-20 17:03] LABS: ALT 21 U/L (4-34); AST 33 U/L (14-36); African American GFR (CKD) 66 (>60 ml/min/1.73 sqM); Albumin 4.4 g/dL (3.5-5.0); Albumin/Globulin Ratio 1.5; Alkaline Phosphatase 135 U/L (38-126); Amylase 54 U/L (30-110); Anion Gap 11 mmol/L; Blood Urea Nitrogen 16 mg/dL (7-17); Calcium 9.1 mg/dL (8.4-10.2); Carbon Dioxide 26 mmol/L (22-30); Chloride 90 mmol/L (98-107); Glucose 92 mg/dL (74-99); Non-African American GFR(CKD) 57 (>60 ml/min/1.73 sqM); Potassium 3.9 mmol/L (3.5-5.1); Sodium 127 mmol/L (137-145); Total Bilirubin 0.7 mg/dL (0.2-1.3); Total Protein 7.4 g/dL (6.3-8.2)
--- NOTE | 2022-12-20 18:57 | CT ---
EXAMINATION TYPE: CT abdomen pelvis w con DATE OF EXAM: 12/20/2022 COMPARISON: 01/28/2021 HISTORY: MID TO UPPER ABDOMINAL PAIN. CT DLP: 939.10 mGycm Automated exposure control for dose reduction was used. CONTRAST: CT scan of the abdomen pelvis is performed with IV Contrast, patient injected with 70 mL of Isovue 30 0. FINDINGS- LUNG BASES- No significant abnormality is appreciated. LIVER/GB- postcholecystectomy changes. PANCREAS- No gross abnormality is seen. SPLEEN- No gross abnormality is seen. ADRENALS- No gross abnormality is seen. KIDNEYS/BLADDER- no hydronephrosis nephrolithiasis or renal mass. BOWEL- the stomach is nondistended. The bowel gas pattern nonspecific without obstruction. There is a small hiatal hernia. There is wall thickening at the level of the gastric antrum. Appendix not visu alized. LYMPH NODES- No greater than 1cm abdominal or pelvic lymph nodes are appreciated. OSSEOUS STRUCTURES- postsurgical change of right hip. Hypertrophic arthropathy of the SI joints. Gra de 1 anterolisthesis L4 on L5. OTHER- small fat-containing periumbilical hernia. IMPRESSION- 1. There is marked gastric distention with mild gastric wall thickening which could be on the basis o f antral gastritis. Recommend EGD. Gastroparesis in the differential diagnosis. Obstructive pattern f elt less likely. Correlate clinically.
== END | disposition home or self-care (01) ==
LOC: RADCTMAIN 14:45
PROVIDERS: ATTEND Family Medicine
DX: K63.89 Other specified diseases of intestine (principal); R10.13 Epigastric pain
CPT/HCPCS: 80053; 82150; 85025; 74177; Q9967

== ENCOUNTER → 2023-03-29 | Outpatient (CLI) | payer MEDICARE ==
[2023-03-30 13:57] LABS: Clam IgE <0.10 kU/L; Codfish IgE <0.10 kU/L; Egg White IgE <0.10 kU/L; Peanut IgE <0.10 kU/L; Scallop IgE <0.10 kU/L; Shrimp IgE <0.10 kU/L; Soybean IgE <0.10 kU/L; Walnut IgE (Food) <0.10 kU/L
== END | disposition home or self-care (01) ==
LOC: LABWHC1 14:16
PROVIDERS: ATTEND Internal Medicine Gastroenterology
DX: K58.0 Irritable bowel syndrome with diarrhea (principal); K21.9 Gastro-esophageal reflux disease without esophagitis; R14.1 Gas pain; R14.0 Abdominal distension (gaseous)
CPT/HCPCS: 36415; 82785; 86003

== ENCOUNTER → 2023-11-20 | Outpatient (CLI) | payer MEDICARE ==
--- NOTE | 2023-11-20 23:06 | US ---
EXAMINATION TYPE: US kidneys/renal and bladder DATE OF EXAM: 11/20/2023 COMPARISON: US 2022 CLINICAL INDICATION: Female, 73 years old with history of R10.9 UNSPECIFIED ABDOMINAL PAIN; Right fla nk pain EXAM MEASUREMENTS: Right Kidney: 10.0 x 3.6 x 4.4 cm Left Kidney: 9.7 x 3.5 x 4.2 cm Right Kidney: No hydronephrosis or masses seen Left Kidney: No hydronephrosis or masses seen Bladder: not fully distended Bilateral Jets seen: no IMPRESSION: No acute ultrasound kidney abnormality.
== END | disposition home or self-care (01) ==
LOC: RADUSWWP 10:17
PROVIDERS: ATTEND Internal Medicine
DX: R10.9 Unspecified abdominal pain (principal)
CPT/HCPCS: 76770

== ENCOUNTER → 2024-02-08 | Outpatient (CLI) | payer MEDICARE ==
[2024-02-08 18:42] LABS: HCT 36.1 % (37.2-46.3); HGB 12.4 g/dL (12.0-15.0); MCH 31.2 pg (27.0-32.0); MCHC 34.3 g/dL (32.0-37.0); MCV 90.9 FL (80.0-97.0); Mean Platelet Volume 11.4 FL (9.5-12.2); NRBC Per 100 WBC 0 X 10*3/uL (0.00-0.01); Platelet Count 281 X 10*3/uL (140-440); RBC 3.97 X 10*6/uL (4.10-5.20); RDW 13.3 % (11.5-14.5); WBC 7.91 X 10*3/uL (4.50-10.00)
[2024-02-08 19:02] LABS: Appearance,Urine Clear (Clear); Bilirubin,Urine Negative (Negative); Blood,Urine Negative (Negative); Color,Urine Yellow (Yellow); Ketones,Urine Negative (Negative); Nitrite,Urine Negative (Negative); PH, Urine 7.5; Specific Gravity,Urine 1.006 (1.001-1.030); Urobilinogen,Urine 0.2 E.U./DL
[2024-02-08 19:29] LABS: Bacteria,Urine None Seen (None Seen)
[2024-02-08 21:00] LABS: Iron 52 UG/DL (50-170); Magnesium 1.8 mg/dL (1.5-2.4); Phosphorus 3.8 mg/dL (2.4-5.1); Uric Acid 5.4 mg/dL (2.9-7.7)
[2024-02-08 21:01] LABS: % Iron Saturation 11.79 (12.00-45.00); ALT 18 U/L (8-44); AST 26 U/L (13-35); Albumin 4.4 g/dL (3.8-4.9); Albumin/Globulin Ratio 1.83 Ratio (1.60-3.17); Alkaline Phosphatase 118 U/L (41-126); BUN/Creat Ratio 12.33 Ratio (12.00-20.00); Blood Urea Nitrogen 14.8 mg/dL (9.0-27.0); Calcium 9.4 mg/dL (8.7-10.3); Carbon Dioxide 20.7 mmol/L (21.6-31.8); Chloride 91 mmol/L (96-109); Ferritin 31.4 ng/mL (10.0-291.0); Globulin 2.4 g/dL (1.6-3.3); Glucose 108 mg/dL (70-110); Potassium 4.6 mmol/L (3.5-5.5); Sodium 128 mmol/L (135-145); Total Bilirubin 0.3 mg/dL (0.3-1.2); Total Iron Binding Capacity 441 UG/DL (228-460); Total Protein 6.8 g/dL (6.2-8.2)
== END | disposition home or self-care (01) ==
LOC: LABWHC1 13:24
PROVIDERS: ATTEND Internal Medicine
DX: N39.0 Urinary tract infection, site not specified (principal); N25.81 Secondary hyperparathyroidism of renal origin; M10.9 Gout, unspecified; N18.31 Chronic kidney disease, stage 3a; E55.9 Vitamin D deficiency, unspecified; D63.1 Anemia in chronic kidney disease
CPT/HCPCS: 36415; 80053; 81001; 82306; 82728; 83540; 83550; 83735; 83930; 83935; 83970; 84100; 84300; 84550; 85027

== ENCOUNTER → 2024-02-20 | Outpatient (CLI) | payer MEDICARE ==
--- NOTE | 2024-02-20 16:18 | US ---
EXAMINATION TYPE: US thyroid st tissue head/neck DATE OF EXAM: 02/20/2024 COMPARISON: EXAMINATION TYPE: US thyroid st tissue head/neck DATE OF EXAM: 02/20/2024 COMPARISON: NONE CLINICAL INDICATION: Female, 74 years old with history of R59.0 LOCALIZED ENLARGED LYMPH NODES; left neck lump TECHNIQUE: Multiple grayscale and color Doppler ultrasound images of the left neck at patient's sarah on of palpable abnormality were obtained. FINDINGS/IMPRESSION: There is a subcentimeter 0.5 x 0.5 cm hypoechoic area is seen within the soft ti ssues of the left neck. This is indeterminate. Consider further evaluation with CT neck with IV contr ast.
[2024-02-20 19:13] LABS: BUN/Creat Ratio 7.77 Ratio (12.00-20.00); Blood Urea Nitrogen 10.1 mg/dL (9.0-27.0); Calcium 9.2 mg/dL (8.7-10.3); Carbon Dioxide 24.3 mmol/L (21.6-31.8); Chloride 100 mmol/L (96-109); Glucose 104 mg/dL (70-110); Sodium 137 mmol/L (135-145)
== END | disposition home or self-care (01) ==
LOC: RADUSWWP 15:49
PROVIDERS: ATTEND Family Medicine
DX: N18.31 Chronic kidney disease, stage 3a (principal); R59.0 Localized enlarged lymph nodes
CPT/HCPCS: 76536; 80048

== ENCOUNTER → 2024-03-13 | Outpatient (CLI) | payer MEDICARE ==
[2024-03-13 18:40] LABS: HGB 11.8 g/dL (12.0-15.0); MCH 30.6 pg (27.0-32.0); MCHC 32.8 g/dL (32.0-37.0); MCV 93.3 FL (80.0-97.0); Mean Platelet Volume 11.4 FL (9.5-12.2); NRBC Per 100 WBC 0 X 10*3/uL (0.00-0.01); Platelet Count 233 X 10*3/uL (140-440); RBC 3.86 X 10*6/uL (4.10-5.20); RDW 14.2 % (11.5-14.5); WBC 7.19 X 10*3/uL (4.50-10.00)
[2024-03-13 19:08] LABS: Appearance,Urine Clear (Clear); Bilirubin,Urine Negative (Negative); Blood,Urine Negative (Negative); Color,Urine Yellow (Yellow); Ketones,Urine Negative (Negative); Nitrite,Urine Negative (Negative); Specific Gravity,Urine 1.006 (1.001-1.030); Urobilinogen,Urine 0.2 E.U./DL
[2024-03-13 19:16] LABS: Bacteria,Urine None Seen (None Seen)
[2024-03-13 19:39] LABS: % Iron Saturation 19.07 (12.00-45.00); ALT 17 U/L (8-44); AST 28 U/L (13-35); Albumin 4.4 g/dL (3.8-4.9); Albumin/Globulin Ratio 1.91 Ratio (1.60-3.17); Alkaline Phosphatase 136 U/L (41-126); BUN/Creat Ratio 12.92 Ratio (12.00-20.00); Blood Urea Nitrogen 15.5 mg/dL (9.0-27.0); Carbon Dioxide 19.5 mmol/L (21.6-31.8); Chloride 97 mmol/L (96-109); Ferritin 27.5 ng/mL (10.0-291.0); Globulin 2.3 g/dL (1.6-3.3); Glucose 92 mg/dL (70-110); Iron 82 UG/DL (50-170); Magnesium 1.8 mg/dL (1.5-2.4); Phosphorus 3.6 mg/dL (2.4-5.1); Potassium 4.7 mmol/L (3.5-5.5); Sodium 132 mmol/L (135-145); Total Bilirubin 0.4 mg/dL (0.3-1.2); Total Iron Binding Capacity 430 UG/DL (228-460); Total Protein 6.7 g/dL (6.2-8.2); Uric Acid 5.6 mg/dL (2.9-7.7)
[2024-03-13 21:36] LABS: Microalbumin Creatinine Ratio <38 mg/g Cr (0-30); Urine Creatinine 31.3 mg/dL (28.0-217.0)
== END | disposition home or self-care (01) ==
LOC: LABWHC1 13:23
PROVIDERS: ATTEND Internal Medicine
DX: N18.31 Chronic kidney disease, stage 3a (principal)
CPT/HCPCS: 36415; 80053; 81001; 82043; 82306; 82570; 82728; 83540; 83550; 83735; 83970; 84100; 84550; 85027

== ENCOUNTER → 2024-05-17 | Outpatient (CLI) | payer MEDICARE ==
[2024-05-17 18:40] LABS: HCT 37.2 % (37.2-46.3); HGB 12.4 g/dL (12.0-15.0); MCH 31.8 pg (27.0-32.0); MCHC 33.3 g/dL (32.0-37.0); MCV 95.4 FL (80.0-97.0); Mean Platelet Volume 11.6 FL (9.5-12.2); NRBC Per 100 WBC 0 X 10*3/uL (0.00-0.01); Platelet Count 248 X 10*3/uL (140-440); RDW 13.4 % (11.5-14.5); WBC 6.73 X 10*3/uL (4.50-10.00)
[2024-05-17 18:45] LABS: Appearance,Urine Clear (Clear); Bilirubin,Urine Negative (Negative); Blood,Urine Negative (Negative); Color,Urine Yellow (Yellow); Ketones,Urine Negative (Negative); Nitrite,Urine Negative (Negative); PH, Urine 6.5; Specific Gravity,Urine 1.004 (1.001-1.030); Urobilinogen,Urine 0.2 E.U./DL
[2024-05-17 18:55] LABS: Bacteria,Urine None Seen (None Seen)
[2024-05-17 19:27] LABS: Microalbumin Creatinine Ratio <71 mg/g Cr (0-30); Urine Creatinine 16.9 mg/dL (28.0-217.0)
[2024-05-17 20:13] LABS: Ferritin 25.4 ng/mL (10.0-291.0); Iron 57 UG/DL (50-170); Magnesium 1.8 mg/dL (1.5-2.4); Phosphorus 4.5 mg/dL (2.4-5.1); Total Iron Binding Capacity 479 UG/DL (228-460); Uric Acid 5.8 mg/dL (2.9-7.7)
[2024-05-17 20:25] LABS: ALT 19 U/L (8-44); AST 40 U/L (13-35); Albumin 4.4 g/dL (3.8-4.9); Albumin/Globulin Ratio 1.63 Ratio (1.60-3.17); Alkaline Phosphatase 135 U/L (41-126); BUN/Creat Ratio 9.46 Ratio (12.00-20.00); Blood Urea Nitrogen 12.3 mg/dL (9.0-27.0); Calcium 9.3 mg/dL (8.7-10.3); Carbon Dioxide 21.5 mmol/L (21.6-31.8); Chloride 100 mmol/L (96-109); Globulin 2.7 g/dL (1.6-3.3); Glucose 94 mg/dL (70-110); Potassium 4.7 mmol/L (3.5-5.5); Sodium 136 mmol/L (135-145); Total Bilirubin 0.4 mg/dL (0.3-1.2); Total Protein 7.1 g/dL (6.2-8.2)
== END | disposition home or self-care (01) ==
LOC: LABWHC1 14:16
PROVIDERS: ATTEND Nurse Practitioner Family
DX: N18.31 Chronic kidney disease, stage 3a (principal); D63.1 Anemia in chronic kidney disease; N39.0 Urinary tract infection, site not specified; E55.9 Vitamin D deficiency, unspecified; N25.81 Secondary hyperparathyroidism of renal origin; M10.9 Gout, unspecified; R80.9 Proteinuria, unspecified
CPT/HCPCS: 36415; 80053; 81001; 82043; 82306; 82570; 82728; 83540; 83550; 83735; 83970; 84100; 84550; 85027

== ENCOUNTER → 2024-07-17 | Outpatient (CLI) | payer MEDICARE ==
[2024-07-17 20:03] LABS: BUN/Creat Ratio 14.82 Ratio (12.00-20.00); Blood Urea Nitrogen 16.3 mg/dL (9.0-27.0); Calcium 8.7 mg/dL (8.7-10.3); Carbon Dioxide 22.4 mmol/L (21.6-31.8); Chloride 95 mmol/L (96-109); Glucose 80 mg/dL (70-110); Magnesium 1.8 mg/dL (1.5-2.4); Sodium 132 mmol/L (135-145)
== END | disposition home or self-care (01) ==
LOC: LABWHC1 14:09
PROVIDERS: ATTEND Internal Medicine
DX: N18.31 Chronic kidney disease, stage 3a (principal)
CPT/HCPCS: 36415; 80048; 83735

== ENCOUNTER 2024-07-23 12:25 | Emergency (ER) | payer MEDICARE ==
[2024-07-23 12:29] VITALS: RESP 18
--- NOTE | 2024-07-23 13:02 | ED ---
Extremity Problem HPI - General Chief complaint: Extremity Problem,Nontraumatic Stated complaint: DVT Time Seen by Provider: 07/23/24 12:41 Source: patient, RN notes reviewed Mode of arrival: wheelchair Limitations: no limitations - History of Present Illness Initial comments: This is a 74-year-old female with history of A-fib and vascular disease compl aining of right lower extremity pain x 2 weeks. Patient describes pain as constant, throbbing (10/10) occasionally numb. Patient states pain began worsening yesterday. Patient endorses use of Eliquis for A-fib. States she is seeing her PCP for current complaints and was sent to ER to rule out DVT. Patient endorses minimal relief with Tylenol use. Denies fever, chills, chest pain, dyspnea, abdominal pain, N/V/D. MD Complaint: extremity pain Onset/Timin -: week(s) Location: right Radiation: distal Severity scale (1-10): 10 Quality: dull Consistency: constant Worsens with: walking Associated Symptoms: denies other symptoms - Related Data Home Medications Medication Instructions Recorded Confirmed Calcium Carbonate [Calcium] 1,200 mg PO DAILY 10/22/17 11/30/21 Levothyroxine Sodium 100 mcg PO DAILY 10/22/17 11/30/21 Triamterene-Hctz 37.5-25Mg 1 cap PO DAILY 10/22/17 11/30/21 [Dyazide 37.5-25 Capsule] Cholecalciferol [Vitamin D3 (25 25 mcg PO DAILY 02/02/21 11/30/21 Mcg = 1000 Iu)] Nortriptyline [Pamelor] 10 - 20 mg PO HS PRN 02/02/21 11/30/21 Pantoprazole Sodium [Protonix] 40 mg PO BID 02/02/21 11/30/21 Zinc 50 mg PO DAILY 02/02/21 11/30/21 Rizatriptan Benzoate [Maxalt] 10 mg PO DAILY PRN 02/03/21 11/30/21 Ascorbic Acid [Vitamin C] 1,000 mg PO DAILY 09/15/21 11/30/21 Valsartan 80 mg PO DAILY 09/15/21 11/30/21 Vitamin B Complex 1 cap PO DAILY 09/15/21 11/30/21 Ezetimibe [Zetia] 10 mg PO DAILY 11/26/21 11/30/21 traMADol HCL [Ultram] 50 mg PO Q6HR PRN 11/29/21 11/30/21 Previous Rx's Medication Instructions Recorded Apixaban [Eliquis] 5 mg PO BID #180 tab 02/03/21 Metoprolol Tartrate [Lopressor] 25 mg PO BID #180 tab 02/03/21 HYDROcodone/APAP 7.5-325MG [[place] 1 - 2 tab PO Q6H PRN #32 tab 11/30/21 7.5-325] Ondansetron Odt [Zofran Odt] 1 tab PO Q8HR PRN #10 tab 11/30/21 Sennosides [Senokot] 2 tab PO DAILY PRN #60 tablet 11/30/21 Cyclobenzaprine [Flexeril] 10 mg PO TID PRN #15 tab 07/23/24 Allergies Allergy/AdvReac Type Severity Reaction Status Date / Time cefaclor [From Ceclor] Allergy Rash/Hives Verified 11/30/21 13:11 cephalexin AdvReac Itching Verified 07/23/24 12:30 clarithromycin [From Biaxin] AdvReac Nausea Verified 11/30/21 13:11 hydromorphone [From Dilaudid] AdvReac Hallucinati Verified 11/30/21 13:11 ons levofloxacin [From Levaquin] AdvReac Nausea Verified 11/30/21 13:11 methylprednisolone AdvReac Rash/Hives Verified 11/30/21 13:11 [From Medrol] ofloxacin [From Floxin] AdvReac Nausea Verified 11/30/21 13:11 [id number] Reductase AdvReac can't take Verified 11/30/21 13:11 Inhibitor affects liver enzymes topiramate [From Topamax] AdvReac Nausea Verified 11/30/21 13:11 Review of Systems ROS Statement: Those systems with pertinent positive or pertinent negative responses have been documented in the HPI. ROS Other: All systems not noted in ROS Statement are negative. Past Medical History Past Medical History: Chest Pain / Angina, Fibromyalgia, GERD/Reflux, Hyperlipidemia, Hypertension, Musculoskeletal Disorder, Osteoarthritis (OA), Thyroid Disorder Additional Past Medical History / Comment(s): migraines, IBS, hypothyroid, swollen feet due to lack of veins in legs, ulcers, past hx. 5 lung nodules-never needed tx. for, was monitored, mitral, aortic, tricuspid valve regurge. bulging discs in back, bone spurs, neck problems & decreased ROM, sometimes dysphagia History of Any Multi-Drug Resistant Organisms: None Reported Past Surgical History: Breast Surgery, Cholecystectomy, Hysterectomy, Orthopedic Surgery Additional Past Surgical History / Comment(s): exp. surgery as a kid to see why feet swell findings were lack of veins in legs, left breast cyst removal, exp. laparotomy for "twisted bowel", colonoscopy, achilles tendon repair, EGD w/dilatation's Past Anesthesia/Blood Transfusion Reactions: Previous Problems w/ Anesthesia Additional Past Anesthesia/Blood Transfusion Reaction / Comment(s): told has narrow opening & needs smaller "tube", difficult intubation w/anthony @[facility] Past Psychological History: No Psychological Hx Reported Smoking Status: Never smoker - Past Family History Mother Family Medical History: Coronary Artery Disease (CAD) Father Family Medical History: Coronary Artery Disease (CAD) Additional Family Medical History / Comment(s): cabg Sister(s) Family Medical History: Cancer Additional Family Medical History / Comment(s): breast cancer twice Son(s) Family Medical History: Memory Impairment General Exam Limitations: no limitations General appearance: alert, in no apparent distress Head exam: Present: atraumatic, normocephalic, normal inspection Eye exam: Present: normal appearance, PERRL, EOMI. Absent: scleral icterus, conjunctival injection, periorbital swelling ENT exam: Present: normal exam, mucous membranes moist Neck exam: Present: normal inspection. Absent: tenderness, meningismus, lymphadenopathy Respiratory exam: Present: normal lung sounds bilaterally. Absent: respiratory distress, wheezes, rales, rhonchi, stridor Cardiovascular Exam: Present: regular rate, normal rhythm, normal heart sounds. Absent: systolic murmur, diastolic murmur, rubs, gallop, clicks GI/Abdominal exam: Present: soft, normal bowel sounds. Absent: distended, tenderness, guarding, rebound, rigid Extremities exam: Present: normal inspection, full ROM, normal capillary refill, pedal edema (Bilateral pedal/calf edema +2 without pitting, stasis dermatitis, pallor), calf tenderness (Bilateral Homans' sign). Absent: tenderness, joint swelling Back exam: Present: normal inspection Neurological exam: Present: alert, oriented X3, CN II-XII intact Psychiatric exam: Present: normal affect, normal mood Skin exam: Present: warm, dry, intact, normal color. Absent: rash Course Vital Signs 07/23/24 07/23/24 12:26 15:24 Temperature 97.8 F 98 F Pulse Rate 75 72 Respiratory 18 18 Rate Blood Pressure 198/88 166/85 O2 Sat by Pulse 99 98 Oximetry Medical Decision Making - Medical Decision Making Was pt. sent in by a medical professional or institution (, PA, SLIP COVER SEWER, urgent care, hospital, or usp...) When possible be specific @ -[No] Did you speak to anyone other than the patient for history (EMS, parent, family, police, friend...)? What history was obtained from this source @ -[No] Did you review nursing and triage notes (agree or disagree)? Why? @ -[I reviewed and agree with nursing and triage notes] Were old charts reviewed (outside hosp., previous admission, EMS record, old EKG, old radiological studies, urgent care reports/EKG's, usp records)? Report findings @ -[No old charts were reviewed] Differential Diagnosis (chest pain, altered mental status, abdominal pain women, abdominal pain men, vaginal bleeding, weakness, fever, dyspnea, syncope, headache, dizziness, GI bleed, back pain, seizure, CVA, palpatations, mental health, musculoskeletal)? @ -DVT, PAD, PVD, arterial occlusion, calf muscle strain/spasm, intermittent claudication, BLE edema, this is not an exhaustive list EKG interpreted by me (3pts min.). @ -Sinus rhythm without ST changes or T wave inversion. Ventricular rate 60 bpm, FROYLAN 170 ms, QRS duration 80 ms, QTc 425 ms. X-rays interpreted by me (1pt min.). @ -[None done] CT interpreted by me (1pt min.). @ -[None done] U/S interpreted by me (1pt. min.). @ -[None done] What testing was considered but not performed or refused? (CT, X-rays, U/S, labs)? Why? @ -[None] What meds were considered but not given or refused? Why? @ -[None] Did you discuss the management of the patient with other professionals (professionals i.e. , PA, SLIP COVER SEWER, lab, RT, psych nurse, social work specialist, steward/stewardess, teacher, community resource officer, case specialist)? Give summary @ -[No] Was smoking cessation discussed for >3mins.? @ -[No] Was critical care preformed (if so, how long)? @ -[No] Were there social determinants of health that impacted care today? How? (Homelessness, low income, unemployed, alcoholism, drug addiction, transportation, low edu. Level, literacy, decrease access to med. care, [facility], rehab)? @ -[No] Was there de-escalation of care discussed even if they declined (Discuss DNR or withdrawal of care, Hospice)? DNR status @ -[No] What co-morbidities impacted this encounter? (DM, HTN, Smoking, COPD, CAD, Ca ncer, CVA, ARF, Chemo, Hep., AIDS, mental health diagnosis, sleep apnea, morbid obesity)? @ -[None] Was patient admitted / discharged? Hospital course, mention meds given and route, prescriptions, significant lab abnormalities, going to OR and other pertinent info. @ -[hospital course] Undiagnosed new problem with uncertain prognosis? @ -[No] Drug Therapy requiring intensive monitoring for toxicity (Heparin, Nitro, Insulin, Cardizem)? @ -[No] Were any procedures done? @ -[No] Diagnosis/symptom? @ -[default] Acute, or Chronic, or Acute on Chronic? @ -Acute Uncomplicated (without systemic symptoms) or Complicated (systemic symptoms)? @ -Complicated Side effects of treatment? @ -[No] Exacerbation, Progression, or Severe Exacerbation? @ -[No] Poses a threat to life or bodily function? How? (Chest pain, USA, CT, pneumonia, PE, COPD, DKA, ARF, appy, cholecystitis, CVA, Diverticulitis, Homicidal, Suicidal, threat to staff... and all critical care pts) @ -[No] - Lab Data Result diagrams: 07/23/24 13:42 07/23/24 13:42 Lab Results 07/23/24 07/23/24 07/23/24 Range/Units 13:42 13:42 13:42 WBC 8.7 (3.8-10.6) k/uL RBC 4.31 (3.80-5.40) m/uL Hgb 13.0 (11.4-16.0) gm/dL Hct 39.2 (34.0-46.0) % MCV 90.9 (80.0-100.0) fL MCH 30.3 (25.0-35.0) pg MCHC 33.3 (31.0-37.0) g/dL RDW 13.2 (11.5-15.5) % Plt Count 261 (150-450) k/uL MPV 7.9 Neutrophils % 71 % Lymphocytes % 20 % Monocytes % 5 % Eosinophils % 2 % Basophils % 1 % Neutrophils # 6.2 (1.3-7.7) k/uL Lymphocytes # 1.8 (1.0-4.8) k/uL Monocytes # 0.4 (0-1.0) k/uL Eosinophils # 0.2 (0-0.7) k/uL Basophils # 0.1 (0-0.2) k/uL PT 11.4 (10.0-12.5) sec INR 1.1 (<1.2) APTT 23.7 (22.0-30.0) sec D-Dimer (<0.60) mg/L FEU Sodium 131 L (137-145) mmol/L Potassium 4.7 (3.5-5.1) mmol/L Chloride 98 (98-107) mmol/L Carbon Dioxide 21 L (22-30) mmol/L Anion Gap 12 mmol/L BUN 12 (7-17) mg/dL Creatinine 0.99 (0.52-1.04) mg/dL Est GFR (CKD-EPI)AfAm 65 (>60 ml/min/1.73 sqM) Est GFR (CKD-EPI)NonAf 57 (>60 ml/min/1.73 sqM) Glucose 107 H (74-99) mg/dL Plasma Lactic Acid Franck (0.7-2.0) mmol/L Calcium 9.4 (8.4-10.2) mg/dL Total Bilirubin 1.0 (0.2-1.3) mg/dL AST 59 H (14-36) U/L ALT 53 H (4-34) U/L Alkaline Phosphatase 137 H (38-126) U/L Troponin I (0.000-0.034) ng/mL Total Protein 7.6 (6.3-8.2) g/dL Albumin 4.4 (3.5-5.0) g/dL 07/23/24 07/23/24 07/23/24 Range/Units 13:42 14:22 14:22 WBC (3.8-10.6) k/uL RBC (3.80-5.40) m/uL Hgb (11.4-16.0) gm/dL Hct (34.0-46.0) % MCV (80.0-100.0) fL MCH (25.0-35.0) pg MCHC (31.0-37.0) g/dL RDW (11.5-15.5) % Plt Count (150-450) k/uL MPV Neutrophils % % Lymphocytes % % Monocytes % % Eosinophils % % Basophils % % Neutrophils # (1.3-7.7) k/uL Lymphocytes # (1.0-4.8) k/uL Monocytes # (0-1.0) k/uL Eosinophils # (0-0.7) k/uL Basophils # (0-0.2) k/uL PT (10.0-12.5) sec INR (<1.2) APTT (22.0-30.0) sec D-Dimer 0.28 (<0.60) mg/L FEU Sodium (137-145) mmol/L Potassium (3.5-5.1) mmol/L Chloride (98-107) mmol/L Carbon Dioxide (22-30) mmol/L Anion Gap mmol/L BUN (7-17) mg/dL Creatinine (0.52-1.04) mg/dL Est GFR (CKD-EPI)AfAm (>60 ml/min/1.73 sqM) Est GFR (CKD-EPI)NonAf (>60 ml/min/1.73 sqM) Glucose (74-99) mg/dL Plasma Lactic Acid Franck 1.3 (0.7-2.0) mmol/L Calcium (8.4-10.2) mg/dL Total Bilirubin (0.2-1.3) mg/dL AST (14-36) U/L ALT (4-34) U/L Alkaline Phosphatase (38-126) U/L Troponin I <0.012 (0.000-0.034) ng/mL Total Protein (6.3-8.2) g/dL Albumin (3.5-5.0) g/dL Disposition Clinical Impression: Sciatica Disposition: HOME SELF-CARE Condition: Good Instructions (If sedation given, give patient instructions): Sciatica (ED) Prescriptions: Cyclobenzaprine [Flexeril] 10 mg PO TID PRN #15 tab PRN Reason: Spasms Is patient prescribed a controlled substance at d/c from ED?: No Referrals: Angelo Guidry MD [Primary Care Provider] - 1-2 days Chelsey Villafana NPC [REFERRING] - 1-2 days Juan J Villalta MD [STAFF PHYSICIAN] - 1-2 days Time of Disposition: 15:51
[2024-07-23] MEDS: MORPHINE SULFATE 4 MG/ML SYRINGE IVP STA (13:43)
[2024-07-23 13:53] LABS: Basophils # (A) 0.1 k/uL (0-0.2); Basophils % (A) 1 %; Eosinophils # (A) 0.2 k/uL (0-0.7); Eosinophils % (A) 2 %; HCT 39.2 % (34.0-46.0); Lymphocytes # (A) 1.8 k/uL (1.0-4.8); Lymphocytes % (A) 20 %; MCH 30.3 pg (25.0-35.0); MCHC 33.3 g/dL (31.0-37.0); MCV 90.9 fL (80.0-100.0); Mean Platelet Volume 7.9; Monocytes # (A) 0.4 k/uL (0-1.0); Monocytes % (A) 5 %; Neutrophils # (A) 6.2 k/uL (1.3-7.7); Neutrophils % (A) 71 %; Platelet Count 261 k/uL (150-450); RBC 4.31 m/uL (3.80-5.40); RDW 13.2 % (11.5-15.5); WBC 8.7 k/uL (3.8-10.6)
[2024-07-23 14:01] LABS: INR 1.1 (<1.2); Partial Thromboplastin Time 23.7 sec (22.0-30.0); Prothrombin Time 11.4 sec (10.0-12.5)
[2024-07-23 14:07] LABS: ALT 53 U/L (4-34); AST 59 U/L (14-36); African American GFR (CKD) 65 (>60 ml/min/1.73 sqM); Albumin 4.4 g/dL (3.5-5.0); Alkaline Phosphatase 137 U/L (38-126); Anion Gap 12 mmol/L; Blood Urea Nitrogen 12 mg/dL (7-17); Calcium 9.4 mg/dL (8.4-10.2); Carbon Dioxide 21 mmol/L (22-30); Chloride 98 mmol/L (98-107); Glucose 107 mg/dL (74-99); Non-African American GFR(CKD) 57 (>60 ml/min/1.73 sqM); Potassium 4.7 mmol/L (3.5-5.1); Sodium 131 mmol/L (137-145); Total Protein 7.6 g/dL (6.3-8.2)
--- NOTE | 2024-07-23 14:17 | US ---
EXAMINATION TYPE: US venous doppler duplex LE BI DATE OF EXAM: 07/23/2024 12:53 PM COMPARISON: NONE CLINICAL INDICATION: Female, 74 years old with history of Positive Homans' sign; , Right leg Pain TECHNIQUE: The lower extremity deep venous system is examined utilizing real time linear array sonog suzette with graded compression, color doppler sonography, and spectral doppler. SIDE PERFORMED: Bilateral FINDINGS: VESSELS IMAGED: Common Femoral Vein Deep Femoral Vein Greater Saphenous Vein * Femoral Vein Popliteal Vein Small Saphenous Vein * Proximal Calf Veins (* superficial vessels) Right Leg: Appears negative for DVT Left Leg: Appears negative for DVT IMPRESSION: No evidence for DVT within the bilateral lower extremities imaged from the groin to the upper calves. [facility], , 07/23/2024 2:15 PM
--- NOTE | 2024-07-23 15:00 | XR ---
EXAMINATION TYPE: XR chest 2V DATE OF EXAM: 07/23/2024 2:43 PM COMPARISON: 09/15/2021 CLINICAL INDICATION: Female, 74 years old with history of Chest pain, , TECHNIQUE: AP and lateral views FINDINGS: The cardiomediastinal silhouette, aorta, and pulmonary vasculature are within normal limits. Hazy per ipheral lung densities relating to AP technique and body habitus. Otherwise, lungs and pleural spaces are clear. IMPRESSION: No acute cardiopulmonary process. [facility], , 07/23/2024 2:58 PM
[2024-07-23 15:26] VITALS: TEMP 98
[2024-07-23 16:34] VITALS: BP 162/82; PULSE 70
== END 2024-07-23 16:34 | disposition home or self-care (01) ==
LOC: EC 12:25
DX: M54.31 Sciatica, right side (principal); Z88.1 Allergy status to other antibiotic agents; Z88.8 Allergy status to other drugs, medicaments and biological substances
CPT/HCPCS: 36415; 85379; 80053; 83605; 84484; 85025; 85610; 85730; 71046; 93970; 99284; 96374; J2270

== ENCOUNTER → 2024-09-18 | Outpatient (CLI) | payer MEDICARE ==
--- NOTE | 2024-09-18 17:41 | US ---
EXAMINATION TYPE: US arterial LE single level DATE OF EXAM: 09/18/2024 4:35 PM COMPARISONS: None. CLINICAL INDICATION: Female, 74 years old with history of I73.81 ERYTHROMELALGIA; TECHNIQUE: Systolic pressures were taken of the upper and lower extremity arteries with ankle-brachia l indices and toe brachial indices calculated bilaterally. History of: Smoker: No Hypertension: Yes Diabetic: No Hyperlipidemia: Yes TIA/CVA: No Previous Vascular Surgery: No CAD: No AK: No Vascular Ulcers: No Claudication: No Gangrene: No FINDINGS: Doppler Waveforms: Right: Biphasic Left: Biphasic Brachial Artery systolic pressure: Right: 172 Left: 174 Posterior Tibial artery systolic pressure: Right: 186 Left: 178 Dorsalis Pedis artery systolic pressure: Right: 177 Left: 178 Ankle-Brachial Indices: Right: 1.07 Left: 1.02 (Normal > 0.6; Mild 0.35 - 0.59, Moderate 0.12 - 0.34, Severe <0.12) IMPRESSION: MARLA: Right: Left: Normal 0.9 - 1.4, Recommendation: None [facility], , 09/18/2024 5:39 PM
== END | disposition home or self-care (01) ==
LOC: RADUSWWP 15:56
PROVIDERS: ATTEND Family Medicine
DX: I73.81 Erythromelalgia (principal); I10 Essential (primary) hypertension; E78.5 Hyperlipidemia, unspecified
CPT/HCPCS: 93922

== ENCOUNTER → 2024-12-04 | Outpatient (CLI) | payer MEDICARE ==
[2024-12-04 16:13] LABS: African American GFR (CKD) 69 (>60 ml/min/1.73 sqM); Anion Gap 9 mmol/L; Blood Urea Nitrogen 12 mg/dL (7-17); Calcium 9.1 mg/dL (8.4-10.2); Carbon Dioxide 24 mmol/L (22-30); Chloride 95 mmol/L (98-107); Non-African American GFR(CKD) 60 (>60 ml/min/1.73 sqM); Sodium 128 mmol/L (137-145)
[2024-12-04 16:24] LABS: Glucose 198 mg/dL (74-99)
[2024-12-04 16:25] LABS: Potassium 4.7 mmol/L (3.5-5.1)
== END | disposition home or self-care (01) ==
LOC: LABWHC1 15:00
PROVIDERS: ATTEND Internal Medicine
DX: I12.9 Hypertensive chronic kidney disease with stage 1 through stage 4 chronic kidney disease, or unspecified chronic kidney disease (principal); N18.30 Chronic kidney disease, stage 3 unspecified
CPT/HCPCS: 36415; 80048

== ENCOUNTER 2024-12-05 05:41 | Day surgery (SDC) | payer MEDICARE ==
[2024-12-04 15:50] VITALS: BMI 32.0
[2024-12-05] MEDS ORDERED: ALPRAZolam 0.5 MG TAB PO PRN (06:02)
[2024-12-05] MEDS ORDERED: ALPRAZolam 0.25 MG TAB PO PRN (06:02)
[2024-12-05] MEDS ORDERED: NITROGLYCERIN SL TABS 0.4 MG TAB SUBLINGUAL PRN (06:02)
[2024-12-05 07:00] VITALS: RESP 18; TEMP 97.4
[2024-12-05] MEDS: IV FLUID CONTINUATION 1,000 ML IV ONE ×2 (07:00→11:30)
[2024-12-05 07:01] LABS: Basophils # (A) 0.05 10*3/uL (0.00-0.10); Basophils % (A) 1.1 %; Eosinophils # (A) 0.12 10*3/uL (0.04-0.35); Eosinophils % (A) 2.7 %; HCT 35.2 % (37.2-46.3); HGB 11.8 g/dL (12.0-15.0); Lymphocytes # (A) 0.78 10*3/uL (0.90-5.00); Lymphocytes % (A) 17.6 %; MCH 31.1 pg (27.0-32.0); MCHC 33.5 g/dL (32.0-37.0); MCV 92.6 fL (80.0-97.0); Mean Platelet Volume 9.5 fL (9.5-12.2); Monocytes # (A) 0.73 10*3/uL (0.20-1.00); Monocytes % (A) 16.5 %; Neutrophils # (A) 2.73 10*3/uL (1.80-7.70); Neutrophils % (A) 61.9 %; Platelet Count 211 10*3/uL (140-440); RDW 11.5 % (11.5-14.5); WBC 4.42 10*3/uL (4.50-10.00)
[2024-12-05] MEDS: SODIUM CHLORIDE 0.9% 1,000 ML in EMPTY BAG 1 BAG IV SCH (07:01)
[2024-12-05] MEDS: ASPIRIN 325 MG TAB PO STA (07:01)
[2024-12-05 07:11] LABS: African American GFR (CKD) 69 (>60 ml/min/1.73 sqM); Anion Gap 6 mmol/L; Blood Urea Nitrogen 10 mg/dL (7-17); Calcium 9.1 mg/dL (8.4-10.2); Carbon Dioxide 25 mmol/L (22-30); Chloride 101 mmol/L (98-107); Glucose 104 mg/dL (74-99); Non-African American GFR(CKD) 60 (>60 ml/min/1.73 sqM); Sodium 132 mmol/L (137-145)
[2024-12-05] MEDS: fentaNYL (PF) 50 MCG/ML 2 ML AMP IVP ONE (07:36)
[2024-12-05] MEDS: MIDAZOLAM 2 MG/2 ML VIAL IVP ONE ×2 (07:36→07:38)
[2024-12-05] MEDS: BENZOCAINE SPRAY 1 EACH MUCOUS MEM ONE (07:36)
[2024-12-05 07:47] LABS: Potassium 4.2 mmol/L (3.5-5.1)
[2024-12-05] MEDS: IV FLUID CONTINUATION 950 ML IV ONE (07:48)
--- NOTE | 2024-12-05 07:52 | P.PCN ---
Date of Procedure: 12/05/24 Description of Procedure: Indication: Mitral regurgitation Procedure Description: After explaining the procedure to the patient, it's risk and complications, blood pressure, heart rate and O2 saturation were monitored. The throat was sprayed with Cetacaine. Patient received 3 mg intravenous Versed, 50 mcg intravenous fentanyl. The probe was introduced into the esophagus without difficulty. Images were obtained. Following that, the probe was removed. There was no immediate complication. Findings: Left atrial size is mildly dilated, left atrial appendage is normal. Left ventricular size and systolic function are normal. The aortic valve is a tricuspid valve, calcified, by planimetry the valve area is 1.2 cm. Mitral annulus calcification was noted. Tricuspid valve appears to be normal. Descending thoracic aorta appears to be normal. Contrast bubble study revealed no shunting across the interatrial septum. No pericardial effusion was noted. Doppler: Pulse wave and color Doppler were obtained, and revealed moderate mitral and aortic regurgitation. No significant gradient across the aortic valve could be obtained. No shunting across the interatrial septum was noted. Mild tricuspid regurgitation was noted. Conclusion: 1. Dilated left atrium with normal appearance of the left atrial appendage 2. Normal ventricular size and systolic function 3. Moderate mitral and aortic regurgitation 4. Moderate aortic stenosis by planimetry 5. Mild tricuspid regurgitation 6. No shunting across the interatrial septum Duration of sedation 15 minutes.
[2024-12-05] MEDS: LIDOCAINE 1% INJ 10MG/ML (20 ML MDV) SQ ONE (07:55)
[2024-12-05] MEDS: HEPARIN SODIUM,PORCINE 10,000 UNIT in SODIUM CHLORIDE 0.9% 1,000 ML IRRIGATION PRN (08:02)
[2024-12-05] MEDS: HEPARIN SODIUM,PORCINE (1 ML) 2,500 UNIT in SODIUM CHLORIDE 0.9% 250 ML IRRIGATION PRN (08:02)
[2024-12-05] MEDS: VERAPAMIL SYRINGE (5 MG/10 ML) INTRAARTER ONE ×2 (08:03→08:09)
[2024-12-05] MEDS: HEPARIN SODIUM 1,000 UN/ML (10ML VL) IV ONE (08:14)
[2024-12-05 08:22] LABS: O2 Sat Blood Gas 66.2 %
[2024-12-05] MEDS: IOPAMIDOL-370 100ML BTL INJ ONE (08:22)
[2024-12-05] MEDS ORDERED: RX INFO: IV CONTRAST WAS GIVEN 1 EACH MISC MISCELLANE PRN (08:33)
[2024-12-05] MEDS ORDERED: SODIUM CHLORIDE 0.9% 1,000 ML IV SCH (08:45)
[2024-12-05] MEDS ORDERED: SODIUM BICARBONATE TAB 650 MG TAB PO SCH (09:00)
[2024-12-05] MEDS ORDERED: EZETIMIBE 10 MG TAB PO SCH (09:00)
[2024-12-05] MEDS ORDERED: RABEPRAZOLE SODIUM 20 MG PO SCH (09:00)
[2024-12-05] MEDS ORDERED: LEVOTHYROXINE 100 MCG TAB PO SCH (09:00)
--- NOTE | 2024-12-05 13:19 | P.CARDCATH ---
Date of Procedure: 12/05/24 Description of Procedure: Cardiac Catheterization: The patient is a 74-year-old female with a known history of hypertension hyperlipidemia, history of multi valvular disease who has been complaining of progressive dyspnea, chest discomfort and had an abnormal MPI. Recommendations were made regarding cardiac catheterization, the risks and the complications were discussed with the patient who is in full understanding and agreement. Procedure Description: Patient was brought to laborer pipeline in fasting semi-sedated state after receiving Fentanyl and Benadryl achieiving moderate conscious sedated state. Using Xylocaine Anesthesia and modified Seldinger technique, a 6-Martiniquais sheath was introduced in the right radial artery . Using guidewire exchange technique the venous access in the right basilic vein was exchanged to a 6 Martiniquais sheath. Right heart catheterization was performed using Brixey-Elena catheter. Multiple samples and pressure were obtained. Cardiac output by thermodilution was calculated. Subsequently, selective coronary angiography was performed using a 5-Martiniquais 3.5 bend Clyde catheter. Multiple views of the coronary artery including hemiaxial views were obtained. The right Clyde catheter was used to cross the aortic valve and LVEDP was calculated. Following that, catheter and sheath were removed. Hemostasis was obtained with deployment of vascular band . There was no immediate complication. Patient was returned to room in stable condition. Of note, the patient received a total of 4500 units of intravenous heparin as well as intra-arterial verapamil. Findings: Fluoroscopy: Calcification of the aortic valve was noted Left main: This is a short size vessel, bifurcating into LAD and left circumflex, left main has no obstructive disease. LAD: This is a large size vessel, reaching to the apex, giving rise to a large diagonal branch proximally, the LAD and its branches have no obstructive disease Left circumflex: This is a large dominant vessel, giving rise to 1 obtuse marginal branch proximally and distally bifurcating into PDA and PLV, the left circumflex and its branches have no obstructive disease RCA: This is a small nondominant vessel that has no obstructive disease Left Ventriculogram: Not performed Hemodynamics: Cardiac output by thermodilution 3.4 L/min. Cardiac output by Nicol 5.2 L/min with an index of 2.80/min/m pulmonary artery systolic pressure of 44, diastolic of 20 with a mean of 30 mmHg. Pulmonary capillary wedge pressure A-wave of 25 V wave of 25 with a mean of 23 mmHg. Right ventricle systolic pressure of 48, end diastolic 14 mmHg, right atrium A wave of 14, V wave of 12 with a mean of 10 mmHg, right atrial saturation 66%, pulmonary artery saturation 67%, arterial saturation 97%. Ascending aorta pressure of 150 mmHg and left ventricular systolic pressure of 201 with a peak gradient of 51 mmHg with a mean gradient of 42 mmHg. Left ventricular end-diastolic pressure of 18 to 20 mmHg, aortic valve area 0.59 cm Conclusion: 1. Normal coronary arteries with no evidence of obstructive disease 2. Left dominance 3. Mild to moderate pulmonary hypertension 4. Severe aortic stenosis Recommendations: I have recommended to continue medical therapy at this time and she will be evaluated regarding her aortic valve disease after reviewing her echocardiography data to proceed with possible TAVR. The findings and the recommendations were discussed with the patient and the family and they were in full understanding and agreement. Duration of sedation is 25 minutes.
[2024-12-05 13:21] VITALS: BP 138/65; PULSE 66
[2024-12-05] MEDS ORDERED: METOPROLOL TARTRATE 25 MG TAB PO SCH (21:00)
[2024-12-06] MEDS ORDERED: VALSARTAN 80 MG TAB PO SCH (09:00)
== END 2024-12-05 13:21 | disposition home or self-care (01) ==
LOC: CATHCVL 05:41
PROVIDERS: ATTEND Internal Medicine Interventional Cardiology
DX: I08.3 Combined rheumatic disorders of mitral, aortic and tricuspid valves (principal); I27.20 Pulmonary hypertension, unspecified; E03.9 Hypothyroidism, unspecified; I48.0 Paroxysmal atrial fibrillation; E78.2 Mixed hyperlipidemia; I65.22 Occlusion and stenosis of left carotid artery; N18.9 Chronic kidney disease, unspecified; I12.9 Hypertensive chronic kidney disease with stage 1 through stage 4 chronic kidney disease, or unspecified chronic kidney disease; Z87.891 Personal history of nicotine dependence; Z79.01 Long term (current) use of anticoagulants; Z79.890 Hormone replacement therapy
CPT/HCPCS: 93312; 93320; 93325; 80048; 85018; 82810; 85025; 93460; J2250; J1644 ×3; J2003; J3010; Q9967

== ENCOUNTER → 2024-12-13 | Outpatient (CLI) | payer MEDICARE ==
[2024-12-13 16:34] LABS: African American GFR (CKD) 79 (>60 ml/min/1.73 sqM); Anion Gap 11 mmol/L; Blood Urea Nitrogen 5 mg/dL (7-17); Calcium 9.5 mg/dL (8.4-10.2); Carbon Dioxide 24 mmol/L (22-30); Chloride 97 mmol/L (98-107); Glucose 90 mg/dL (74-99); Non-African American GFR(CKD) 69 (>60 ml/min/1.73 sqM); Sodium 132 mmol/L (137-145)
[2024-12-13 16:38] LABS: Potassium 4.3 mmol/L (3.5-5.1)
== END | disposition home or self-care (01) ==
LOC: LABWHC1 15:34
PROVIDERS: ATTEND Internal Medicine
DX: I12.9 Hypertensive chronic kidney disease with stage 1 through stage 4 chronic kidney disease, or unspecified chronic kidney disease (principal); N18.9 Chronic kidney disease, unspecified
CPT/HCPCS: 36415; 80048

== ENCOUNTER → 2024-12-26 | Outpatient (CLI) | payer MEDICARE ==
[2024-12-26] MEDS: EMPTY BAG 1 BAG with SODIUM CHLORIDE 0.9% 1,000 ML IV ONE (07:40)
[2024-12-26 08:07] VITALS: BP 185/84; PULSE 66; RESP 16; TEMP 98.5
[2024-12-26 08:29] LABS: Basophils # (A) 0.08 10*3/uL (0.00-0.10); Basophils % (A) 1.4 %; Eosinophils # (A) 0.17 10*3/uL (0.04-0.35); Eosinophils % (A) 2.9 %; HCT 35.2 % (37.2-46.3); HGB 11.9 g/dL (12.0-15.0); Immature Platelet Fraction 1.9 % (1.1-6.1); Lymphocytes # (A) 1.74 10*3/uL (0.90-5.00); Lymphocytes % (A) 29.6 %; MCH 31.2 pg (27.0-32.0); MCHC 33.8 g/dL (32.0-37.0); MCV 92.4 fL (80.0-97.0); Monocytes # (A) 0.63 10*3/uL (0.20-1.00); Monocytes % (A) 10.7 %; Neutrophils # (A) 3.25 10*3/uL (1.80-7.70); Neutrophils % (A) 55.4 %; Platelet Count 284 10*3/uL (140-440); RBC 3.81 10*6/uL (4.10-5.20); RDW 11.9 % (11.5-14.5); WBC 5.87 10*3/uL (4.50-10.00)
[2024-12-26 08:49] LABS: ALT 16 U/L (4-34); African American GFR (CKD) 66 (>60 ml/min/1.73 sqM); Albumin/Globulin Ratio 1.4; Anion Gap 9 mmol/L; Bilirubin,Unconjugated 0.4 mg/dL (0.0-1.1); Blood Urea Nitrogen 11 mg/dL (7-17); Calcium 9.6 mg/dL (8.4-10.2); Carbon Dioxide 22 mmol/L (22-30); Chloride 103 mmol/L (98-107); Glucose 106 mg/dL (74-99); Non-African American GFR(CKD) 57 (>60 ml/min/1.73 sqM); Sodium 134 mmol/L (137-145)
[2024-12-26 08:56] LABS: NT-Pro-B-Type Natriuretic Pept 866 pg/mL
[2024-12-26 09:08] LABS: INR 1.1 (<1.2); Prothrombin Time 12.2 sec (10.0-12.5)
[2024-12-26 09:29] LABS: AST 39 U/L (14-36); Albumin 4.3 g/dL (3.5-5.0); Potassium 5.5 mmol/L (3.5-5.1); Total Bilirubin 1.1 mg/dL (0.2-1.3); Total Protein 7.3 g/dL (6.3-8.2)
[2024-12-26 09:30] LABS: Alkaline Phosphatase 66 U/L (38-126)
[2024-12-26 09:35] LABS: Appearance,Urine Clear (Clear); Bilirubin,Urine Negative (Negative); Blood,Urine Negative (Negative); Color,Urine Colorless; Glucose,Urine (UA) Negative (Negative); Ketones,Urine Negative (Negative); Leukocyte Esterase,Urine Negative (Negative); Nitrite,Urine Negative (Negative); Protein,Urine Negative (Negative); Specific Gravity,Urine 1.006 (1.001-1.035); Urobilinogen,Urine <2.0 mg/dL (<2.0)
--- NOTE | 2024-12-26 12:18 | CT ---
EXAMINATION TYPE: CT TAVR Planning DATE OF EXAM: 12/26/2024 COMPARISON: CT abdomen pelvis 12/20/2022, CT chest 10/27/2022 CLINICAL INDICATION: Female, 74 years old with history of TAVR planning; TAVR planning TECHNIQUE: CT scan of the Neck, chest, abdomen and pelvis is performed with IV contrast; Helical imaging obtaine d through the chest, abdomen and pelvis during arterial phase dynamic administration of radiographic contrast intravenously. MIP imaging performed on a [employer] work station and submitted for review. CONTRAST: 125 mL of Isovue 370. CT DLP: 1779.4 mGycm, Automated exposure control for dose reduction was used. FINDINGS: See report from [employer] regarding preprocedural planning HEART AND PERICARDIUM: The heart is mildly enlarged. There is no pericardial effusion. No significant coronary arterial calcifications. AV Calcification Severity: Mild ARTERIAL VASCULATURE: The aortic arch and thoracoabdominal aorta demonstrate a normal course and caliber. Moderate prostati c calcifications identified. The pulmonary outflow tract appears within normal limits for size. The thoracoabdominal aorta is normal in course and caliber. There is no evidence of aortic dissection, an eurysm or acute aortic injury. Great arch vessels patent and normal in course and caliber. PULMONARY ARTERIAL VASCULATURE: Normal caliber., No evidence for central filling defect. NECK AND THYROID: No significant findings. The carotid bifurcations are patent. CHEST: LUNGS: No acute area of infiltrative or consolidative change. Mild centrilobular emphysematous change s. Few unchanged pulmonary nodules within the right lung. Stability for multiple years demonstrated. No follow-up recommended. LARGE AIRWAYS: Central airways are patent. PLEURAL: No pleural effusion or thickening. No pneumothorax. MEDIASTINUM AND MOUNIKA: No mediastinal or hilar lymphadenopathy or soft tissue mass. SOFT TISSUES/LYMPH NODES: Unremarkable.Normal. MUSCULOSKELETAL: No acute osseous abnormalities. Multilevel degenerative disc disease. ABDOMEN/PELVIS: Please note arterial phase of the imaging limits detailed evaluation of the solid abdominal organs. ABDOMEN LIVER: Unremarkable GALLBLADDER AND BILE DUCTS: The gallbladder is surgically absent. PANCREAS: Unremarkable. SPLEEN: Unremarkable. ADRENAL GLANDS: Unremarkable. KIDNEYS AND URETERS: No evidence of hydronephrosis . Contrast demonstrated within both collecting sys tems and proximal to mid ureters. This limits evaluation for renal calculi. The kidneys enhance symme trically. PELVIS BLADDER: Unremarkable REPRODUCTIVE: The uterus is surgically absent. ABDOMEN & PELVIS STOMACH AND BOWEL: Stomach and duodenum are unremarkable. Redundant sigmoid colon. No focal bowel wal l thickening or surrounding inflammatory changes. The appendix is not definitively visualized. No german dence of bowel obstruction. PERITONEUM/RETROPERITONEUM: No evidence of pneumoperitoneum or free fluid. VASCULATURE: No evidence of aortic aneurysm. MUSCULOSKELETAL: No acute osseous abnormalities. Right hip arthroplasty change. Degenerative changes of bilateral SI joints with anterior bridging. Degenerative changes of the pubic symphysis. Grade 1 a nterolisthesis of L4 on L5 without evidence of pars defects. Mild multilevel degenerative disc diseas e. LYMPH NODES: No gross evidence for lymphadenopathy. SOFT TISSUE/ABDOMINAL WALL: Small fat filled umbilical hernia. Other Lines/Tubes/Devices/Hardware: None IMPRESSION: 1. Mild calcifications of the aortic valve. 2. No acute process. 3. See report from [employer] regarding preprocedural planning [facility], , 12/26/2024 12:16 PM
[2024-12-26 18:00] LABS: Chol/HDL Ratio 2.89 Ratio; LDL Cholesterol,Calculated 87.3 mg/dL (0.0-131.0)
== END | disposition home or self-care (01) ==
LOC: LABWHC1 07:20
PROVIDERS: ATTEND Thoracic Surgery (Cardiothoracic Vascular Surgery)
DX: Z01.818 Encounter for other preprocedural examination (principal); I35.0 Nonrheumatic aortic (valve) stenosis; I70.0 Atherosclerosis of aorta; E07.9 Disorder of thyroid, unspecified; E11.9 Type 2 diabetes mellitus without complications; N28.9 Disorder of kidney and ureter, unspecified; E78.5 Hyperlipidemia, unspecified; R58 Hemorrhage, not elsewhere classified; R35.0 Frequency of micturition; Z79.01 Long term (current) use of anticoagulants; Z79.899 Other long term (current) drug therapy
CPT/HCPCS: 94150; 84439; 83880; 80061; 80053; 84443; 82248; 83735; 85025; 85610; 85730; 81003; 87086; 83036; 71275; 74174; 36415; Q9967